=== PATIENT | male | born 1935 | race Caucasian/White ===

== ENCOUNTER → 2017-07-13 | Outpatient (CLI) | payer MEDICARE ==
--- NOTE | 2017-07-13 15:40 | XR ---
EXAMINATION TYPE: XR chest 2V DATE OF EXAM: 07/13/2017 COMPARISON: Chest CT March 23, 2017. Two-view chest x-ray July 05, 2016. HISTORY: Cough and congestion for weeks. Shortness of breath. TECHNIQUE: Frontal and lateral views of the chest are obtained. FINDINGS: Osseous structures remain demineralized. There is underlying scoliosis redemonstrated. The re is chronic blunting of right lateral costophrenic angle and elevated right hemidiaphragm. Underlyi ng emphysematous change with patchy left basilar scarring remains present. There is no new suspicious focal airspace opacity, pleural effusion, or pneumothorax seen bilaterally. Cardiac silhouette size remains within normal limits with atherosclerotic thoracic aorta. IMPRESSION: Chronic changes without suspicious new acute pulmonary process.
== END | disposition home or self-care (01) ==
LOC: RADXRMAIN 14:24
PROVIDERS: ATTEND Internal Medicine Critical Care Medicine
DX: R91.8 Other nonspecific abnormal finding of lung field (principal); R06.02 Shortness of breath; R05 Cough
CPT/HCPCS: 71046

== ENCOUNTER → 2018-08-31 | Outpatient (CLI) | payer MEDICARE ==
--- NOTE | 2018-08-31 09:20 | FL ---
EXAMINATION TYPE: FL barium swallow DATE OF EXAM: 08/31/2018 CLINICAL HISTORY: Dysphasia TECHNIQUE: A double contrast esophagram is performed utilizing air and barium. A total of 54 second s of fluoroscopic time was utilized during procedure. 15 images submitted COMPARISON: None FINDINGS: The esophagus shows a small hiatal hernia but no gastroesophageal reflux. There is occasion al tertiary contractions of esophagus. No obstruction. Mild fold thickening of the distal esophagus. IMPRESSION: 1. Small hiatal hernia with mild fold thickening and irregularity of the distal esophagus may be on t he basis of mild esophagitis. Would recommend direct visualization.
--- NOTE | 2018-08-31 11:15 | CT ---
EXAMINATION TYPE: CT sinus wo con DATE OF EXAM: 08/31/2018 COMPARISON: None HISTORY: acute sinusitis CT DLP: 622 mGycm CONTRAST: 0 mL of Isovue 300 The paranasal sinuses are examined in the axial plane at 2 mm thick sections. Reconstructed images i n the coronal plane were obtained. There is dental amalgam scatter artifact The maxillary sinuses are clear. The ethmoid air cells are clear. The sphenoid sinuses are clear. The frontal sinuses are clear. The septum is evaluated. There is septal deviation to the left. Bilateral colby bullosa are present . The ostiomeatal units are patent. Left medial maxillary wall is absent. No suspicious air-fluid levels are evident. IMPRESSIONS: 1. No suspicious acute sinusitis changes.
== END | disposition home or self-care (01) ==
LOC: RADCTMAIN 07:45
PROVIDERS: ATTEND Otolaryngology
DX: K44.9 Diaphragmatic hernia without obstruction or gangrene (principal); K22.8 Other specified diseases of esophagus; J32.9 Chronic sinusitis, unspecified
CPT/HCPCS: 70486; 74220

== ENCOUNTER 2018-09-27 08:53 | Day surgery (SDC) | payer MEDICARE ==
[2018-09-25 11:51] VITALS: BMI 23.7
[~2018-09-27 08:53] MED LIST: LACTATED RINGERS 1,000 ML IV SCH; LIDOCAINE 1% 20 ML VIAL (10MG/ML) FOR IV START INTRADERMA PRN
[2018-09-27 09:56] VITALS: TEMP 97.7
[2018-09-27] MEDS ORDERED: LIDOCAINE 1% INJ 10MG/ML (20 ML MDV) ONE (10:30)
[2018-09-27] MEDS ORDERED: GLYCOPYRROLATE 0.2 MG/ML 2 ML VIAL ONE (10:30)
[2018-09-27] MEDS ORDERED: PROPOFOL 10 MG/ML 20 ML VIAL IV ONE (10:30)
--- NOTE | 2018-09-27 10:45 | P.PCN ---
Date of Procedure: 09/27/18 Procedure(s) Performed: BRIEF HISTORY: Patient is a 83-year-old, pleasant, white male, scheduled for an upper endoscopy as a part of evaluation of intermittent heartburn and dysphagia. He recently had a barium esophagogram done that showed thickening of the distal esophagus and hence he scheduled for an upper endoscopy to evaluate further. PROCEDURE PERFORMED: Esophagogastroduodenoscopy with biopsy. PREOPERATIVE DIAGNOSIS: GERD/heartburn. IV sedation per anesthesia. PROCEDURE: After informed consent was obtained, the patient was brought into the endoscopy unit. IV sedation was administered by Anesthesia under continuous monitoring. Initially the Olympus GIF-140 video endoscope was inserted into the mouth. Esophagus intubated without any difficulty. It was gradually advanced into the stomach and duodenum and carefully examined. The bulb and the second part of the duodenum appeared normal. The scope at this time was withdrawn to the stomach, adequately insufflated with air, and upon careful examination, mucosa of the antrum had mild gastritis and biopsies were done from this area. The body, cardia and the fundus appeared normal. The scope was then withdrawn into the esophagus. Small hiatal hernia noted. The GE junction was located at 38 cm from the incisors. There was long segment of Patel's esophagus extending from 30 cm from the incisors with some mucosal erythema and thickened wasn't folds in the distal esophagus and multiple biopsies were done from this area. No nodularity identified. The rest of the esophagus appeared normal. There were no erosions or ulcerations seen and the patient tolerated the procedure well. IMPRESSION: 1. 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 Small hiatal hernia 3. Mild antral gastritis. RECOMMENDATIONS: The findings of this examination were discussed with the patient as well as a family. He was advised to follow with the biopsy results. and he'll be started on Prilosec 20 mg daily and was briefly educated about antireflux measures. He'll be seen in the office in a week to discuss the biopsy results.
[2018-09-27 11:15] VITALS: BP 110/66; PULSE 66; RESP 18
== END 2018-09-27 11:40 | disposition home or self-care (01) ==
LOC: ORWHC2ENDO 08:53
PROVIDERS: ATTEND Internal Medicine Gastroenterology
DX: K29.50 Unspecified chronic gastritis without bleeding (principal); K22.70 Barrett's esophagus without dysplasia; K44.9 Diaphragmatic hernia without obstruction or gangrene; I10 Essential (primary) hypertension; E78.5 Hyperlipidemia, unspecified; J44.9 Chronic obstructive pulmonary disease, unspecified; N40.0 Benign prostatic hyperplasia without lower urinary tract symptoms; Z79.899 Other long term (current) drug therapy; Z79.82 Long term (current) use of aspirin
CPT/HCPCS: 88305; 43239; J2001; J2704

== ENCOUNTER 2021-01-02 08:08 | Day surgery (SDC) | payer MEDICARE ==
[2020-12-31 09:28] VITALS: BMI 22.3
[~2021-01-02 08:08] MED LIST changes: +LIDOCAINE 1% (10MG/ML) FOR IV START INTRADERMA PRN; -LIDOCAINE 1% 20 ML VIAL (10MG/ML) FOR IV START INTRADERMA PRN
[2021-01-02] MEDS ORDERED: LACTATED RINGERS 1,000 ML IV ONE (08:33)
[2021-01-02 08:35] VITALS: TEMP 98.4
[2021-01-02] MEDS ORDERED: LIDOCAINE 1% INJ 10MG/ML (20 ML MDV) ONE (09:41)
[2021-01-02] MEDS ORDERED: PROPOFOL 10 MG/ML 20 ML VIAL IV ONE (09:41)
--- NOTE | 2021-01-02 09:53 | P.PCN ---
Date of Procedure: 01/02/21 Procedure(s) Performed: BRIEF HISTORY: Patient is a 85-year-old, pleasant, white male scheduled for an upper endoscopy as a part of surveillance of long-standing history of GERD and Patel's esophagus. His last EGD was 2 years ago. He is currently on Prilosec 20 mg daily. Complains of occasional sore throat but denies any dysphagia PROCEDURE PERFORMED: Esophagogastroduodenoscop with biopsy y. PREOPERATIVE DIAGNOSIS: GERD/Patel's esophagus. IV sedation per anesthesia. PROCEDURE: After informed consent was obtained, the patient was brought into the endoscopy unit. IV sedation was administered by Anesthesia under continuous monitoring. Initially the Olympus GIF-140 video endoscope was inserted into the mouth. Esophagus intubated without any difficulty. It was gradually advanced into the stomach and duodenum and carefully examined. The bulb and the second part of the duodenum appeared normal. The scope at this time was withdrawn to the stomach, adequately insufflated with air, and upon careful examination, mucosa of the antrum, body, cardia and the fundus appeared normal. The scope was then withdrawn into the esophagus. The GE junction was located at 42 cm from the incisors. Moderate size hiatal hernia noted. There was a long segment of Patel's esophagus extending from 35-42 cm from the incisors with no erosions or ulcerations noted. No nodularity seen. Multiple biopsies were done from the segment of Patel's esophagus. The rest of the esophagus appeared normal. Ther e were no erosions or ulcerations seen and the patient tolerated the procedure well. IMPRESSION: 1. Long Segment of Patel's esophagus extending from 35-42 cm from the incisors status post multiple biopsies to rule out dysplasia. 2. Size hiatal hernia.. RECOMMENDATIONS: The findings of this examination were discussed with the patient as well as his family. He was advised to follow with the biopsy results. He will continue with Prilosec 20 mg daily and follow antireflux measures. If the biopsy does not show any evidence of dysplasia he can have a repeat upper endoscopy in 2-3 years.
[2021-01-02 10:25] VITALS: BP 160/58; PULSE 76; RESP 18
== END 2021-01-02 10:36 | disposition home or self-care (01) ==
LOC: ORWHC2ENDO 08:08
PROVIDERS: ATTEND Internal Medicine Gastroenterology
DX: K21.00 Gastro-esophageal reflux disease with esophagitis, without bleeding (principal); K22.70 Barrett's esophagus without dysplasia; K44.9 Diaphragmatic hernia without obstruction or gangrene; I25.10 Atherosclerotic heart disease of native coronary artery without angina pectoris; E78.5 Hyperlipidemia, unspecified; I25.2 Old myocardial infarction; Z79.899 Other long term (current) drug therapy
CPT/HCPCS: 88305; 88312; 88342; 43239; J2001; J2704

== ENCOUNTER → 2021-08-18 | Outpatient (CLI) | payer MEDICARE ==
--- NOTE | 2021-08-19 05:30 | XR ---
EXAMINATION TYPE: XR lumbar spine 2 or 3V DATE OF EXAM: 08/18/2021 CLINICAL HISTORY: Low back pain for one year. TECHNIQUE: Frontal and lateral images of the lumbar spine are obtained. COMPARISON: None FINDINGS: There are 6 lumbar type vertebral bodies identified. There is slight levoconvex scoliosis centered in the lower lumbar spine. Loss of normal lumbar lordosis on lateral images. There is grade 1 retrolisthesis L3 on L4, L4 on L5, and L5 on L6. Severe disc space narrowing L5-L6 level with endpl ate sclerosis and moderate anterior spurring. Moderate to severe disc space narrowing L4-L5 level. Fa cet arthropathy in the lower lumbar spine. Incomplete evaluation of labeled L1 vertebra on lateral vi ew. Moderate overlying arterial vascular calcification is present. IMPRESSION: As above.
== END | disposition home or self-care (01) ==
LOC: RADXRMAIN 17:54
PROVIDERS: ATTEND Internal Medicine
DX: M47.816 Spondylosis without myelopathy or radiculopathy, lumbar region (principal); M41.86 Other forms of scoliosis, lumbar region; M43.16 Spondylolisthesis, lumbar region; M51.86 Other intervertebral disc disorders, lumbar region
CPT/HCPCS: 72100

== ENCOUNTER → 2021-09-07 | Outpatient (CLI) | payer MEDICARE ==
--- NOTE | 2021-09-07 15:22 | US ---
EXAMINATION TYPE: US carotid duplex BILAT DATE OF EXAM: 09/07/2021 COMPARISON: NONE CLINICAL HISTORY: R42 EPISODIC LIGHTHEADEDNESS. Lightheadnedness, hx hypertension. EXAM MEASUREMENTS: RIGHT: Peak Systolic Velocity (PSV) cm/sec ----- Right CCA: 83.1 ----- Right ICA: 97.4 *bulb measurement ----- Right ECA: 72.9 ICA/CCA ratio: 1.2 RIGHT: End Diastole cm/sec ----- Right CCA: 10.6 ----- Right ICA: 14.9 *bulb measurement ----- Right ECA: 0.0 LEFT: Peak Systolic Velocity (PSV) cm/sec ----- Left CCA: 120.5 ----- Left ICA: 82.0 *bulb measurement ----- Left ECA: 100.4 ICA/CCA ratio: 0.7 LEFT: End Diastole cm/sec ----- Left CCA: 23.6 ----- Left ICA: 13.8 *bulb measurement ----- Left ECA: 9.8 VERTEBRALS (direction of flow): Right Vertebral: Antegrade Left Vertebral: Antegrade Rhythm: Normal Plaque seen within bilateral CCA and bilateral bulb. Elevated velocities within left mid CCA. IMPRESSION: No evidence for hemodynamically significant stenosis. Criteria for Assigning % of Stenosis / Diameter reduction (Estimation based on the indirect measurements of the internal carotid artery velocities (ICA PSV). 1. Normal (no stenosis)=ICA PSV < 125 cm/s: ratio < 2.0: ICA EDV<40 cm/s. 2. Less than 50% stenosis=ICA PSV < 125 cm/s: ratio < 2.0: ICA EDV<40 cm/s. 3. 50 to 69% stenosis=ICA PSV of 125 to 230 cm/s: ration 2.0 ? 4.0: ICA EDV 40-100 cm/s. 4. Greater than 70% stenosis to near occlusion= ICA PSV > 230 cm/s: ratio > 4.0: ICA EDV > 100 cm/s. 5. Near occlusion= ICA PSV velocities may be low or undetectable: variable ratio and ICA EDV. 6. Total occlusion=unable to detect flow.
--- NOTE | 2021-09-07 15:30 | CT ---
EXAMINATION TYPE: CT brain mookie moreno DATE OF EXAM: 09/07/2021 COMPARISON: None available HISTORY: frequent falls, dizziness CT DLP: 330.6 mGycm Automated exposure control for dose reduction was used. TECHNIQUE: CT scan of the head and cervical spine are performed without contrast. FINDINGS: Brain: Small right cerebellar chronic infarct. Left occipital cortical and subcortical chronic infarct. Brai n volume loss changes, likely age-related. Scattered arterial atherosclerotic calcifications. No acut e intracranial hemorrhage or gross acute cortical infarct. No midline shift or herniation. Unremarkable basal cisterns, sella and CP angles. No gross space-occu pying lesion, vasogenic edema or mass effect. Unremarkable orbits. Clear visualized paranasal sinuses and mastoid air cells. No definite acute calvarial bone fracture identified. Cervical spine: Diffuse osteopenia. Anterolisthesis of C4 over C5, C6 over C7 and C7 over T1, likely degenerative. No definite vertebral body collapse or acute displaced fracture. Unremarkable atlantoaxial and atlantoo ccipital articulations. No facet dislocation or significant subluxation. Advanced degenerative changes of the cervical spine with multilevel opposing endplate osteophytosis, degenerated discs, disc calcifications and multilevel uncovertebral osteoarthropathy, most evident at C4-5 and C5-6 levels. Multilevel facet osteoarthropathy is also noted most evident at bilateral C4-5 facets. Moderate right C2-3, severe left C4-5 and severe right C5-6 neuroforaminal stenosis. Spinal canal shabnam nosis is seen at C5-6 level. Suspected previous left hemithyroidectomy. Scattered arterial atheroscle rotic calcifications. Bilateral apical pulmonary fibrotic changes. IMPRESSION: 1. No acute intracranial posttraumatic sequela or acute calvarial bone fracture. 2. Scattered chronic intracranial infarcts as described above. 3. No acute traumatic bony injury of the cervical spine. 4. Degenerative changes of the cervical spine and other incidental findings as detailed above. Further MRI assessment can be considered if clinically required.
== END | disposition home or self-care (01) ==
LOC: RADCTMAIN 14:19
PROVIDERS: ATTEND Internal Medicine
DX: M47.812 Spondylosis without myelopathy or radiculopathy, cervical region (principal); I63.9 Cerebral infarction, unspecified; R42 Dizziness and giddiness
CPT/HCPCS: 70450; 72125; 93880

== ENCOUNTER 2023-06-16 14:17 | Inpatient (IN) | payer MEDICARE ==
--- NOTE | 2023-06-16 14:45 | ED ---
General Adult HPI - General Source: patient Mode of arrival: ambulatory Limitations: no limitations <Jurgen Lawson - Last Filed: 06/16/23 14:42> <Darek Mckenzie - Last Filed: 06/16/23 21:58> - General Chief complaint: Shortness of Breath Stated complaint: SOB Time Seen by Provider: 06/16/23 14:31 - History of Present Illness Initial comments: Dictation was produced using [employer] dictation software. please excuse any grammatical, word or spelling errors. Chief Complaint: 88-year-old male with past medical history of COPD, hypertension and TX presents to the ER for weakness and shortness of breath History of Present Illness: Patient is an 88-year-old male with past medical history of COPD, TX hypertension presents to the ER for weeks of shortness of breath. Patient states that he has been feeling weak and short of breath for several weeks now. States that he has been short of breath for 3 weeks. His called EMS today because he was really weak. Patient has no pain complaints. States that he does have some black stools. Patient does not take any anticoagulation medications. States that he was feeling better once oxygen was given to him by prehospital providers. According to EMS patient's room air SpO2 is 91%. Patient has history of prostate cancer. The ROS documented in this emergency department record has been reviewed and confirmed by me. Those systems with pertinent positive or negative responses have been documented in the HPI. All other systems are other negative and/or noncontributory. (Jurgen Lawson) - Related Data Home Medications Medication Instructions Recorded Confirmed Albuterol Nebulized [Ventolin 2.5 mg INHALATION RT-Q6H PRN 09/25/18 06/16/23 Nebulized] Aspirin EC [Ecotrin Low Dose] 81 mg PO DAILY 09/25/18 06/16/23 Simvastatin [Zocor] 20 mg PO DAILY 09/25/18 06/16/23 Albuterol Inhaler [Ventolin Hfa 1 - 2 puff INHALATION RT-Q6H PRN 06/16/23 06/16/23 Inhaler] Cholecalciferol [Vitamin D3 (25 25 mcg PO DAILY 06/16/23 06/16/23 Mcg = 1000 Iu)] Ferrous Sulfate [Feosol] 325 mg PO Q48H 06/16/23 06/16/23 Fluticasone Furoate [Flonase 2 spray EA NOSTRIL DAILY PRN 06/16/23 06/16/23 Sensimist] Loperamide [Imodium] 2 - 4 mg PO QID PRN MDD 16 MG 06/16/23 06/16/23 Midodrine [ProAmatine] 5 mg PO TID 06/16/23 06/16/23 Omeprazole 20 mg PO DAILY 06/16/23 06/16/23 Vit C/E/Zn/Coppr/Lutein/Zeaxan 1 cap PO BID 06/16/23 06/16/23 [Preservision Areds 2 Softgel] Allergies Allergy/AdvReac Type Severity Reaction Status Date / Time No Known Allergies Allergy Verified 06/16/23 16:45 Review of Systems ROS Other: All systems not noted in ROS Statement are negative. <Jurgen Lawson - Last Filed: 06/16/23 14:42> ROS Other: All systems not noted in ROS Statement are negative. <Darek Mckenzie - Last Filed: 06/16/23 21:58> ROS Statement: Those systems with pertinent positive or pertinent negative responses have been documented in the HPI. Past Medical History Past Medical History: Cancer, COPD, Eye Disorder, Hypertension, Myocardial Infarction (TX), Prostate Disorder Additional Past Medical History / Comment(s): states has nodule in "throat", states prostate ca, hx of thyroid nodules, hx of asbestos exposure, hx of co llapsed lung, left eye macular deg. Last Myocardial Infarction Date:: 1978 History of Any Multi-Drug Resistant Organisms: None Reported Past Surgical History: Hernia Repair Additional Past Surgical History / Comment(s): chest tube, collapsed lung, berkley cataracts, partial thyroidectomy Past Anesthesia/Blood Transfusion Reactions: No Reported Reaction Past Psychological History: Depression Smoking Status: Never smoker Past Alcohol Use History: Rare Past Drug Use History: None Reported - Past Family History Mother Family Medical History: No Reported History <Jurgen Lawson - Last Filed: 06/16/23 14:42> General Exam Limitations: no limitations <Jurgen Lawson - Last Filed: 06/16/23 14:42> - General Exam Comments Initial Comments: PHYSICAL EXAM: General Impression: Alert and oriented x3, not in acute distress HEENT: Normocephalic atraumatic, extra-ocular movements intact, pupils equal and reactive to light bilaterally, mucous membranes moist. Cardiovascular: Heart regular rate and rhythm Chest: Able to complete full sentences, no retractions, no tachypnea Abdomen: abdomen soft, non-tender, non-distended, no organomegaly Musculoskeletal: Pulses present and equal in all extremities, no peripheral edema Motor: no focal deficits noted Neurological: CN II-XII grossly intact, no focal motor or sensory deficits noted Skin: Intact with no visualized rashes Psych: Normal affect and mood (Jurgen Lawson) Course Vital Signs 06/16/23 06/16/23 06/16/23 14:25 15:02 15:03 Temperature 98 F Pulse Rate 94 85 Respiratory 18 20 22 Rate Blood Pressure 168/96 167/96 O2 Sat by Pulse 99 98 Oximetry 06/16/23 06/16/23 06/16/23 16:33 16:42 17:31 Temperature 97.6 F Pulse Rate 91 96 89 Respiratory 22 Rate Blood Pressure 150/90 O2 Sat by Pulse 97 Oximetry 06/16/23 06/16/23 06/16/23 19:36 20:06 20:13 Temperature Pulse Rate 89 89 93 Respiratory 22 Rate Blood Pressure 151/82 O2 Sat by Pulse 99 Oximetry Medical Decision Making <Jurgen Lawson - Last Filed: 06/16/23 14:42> - Lab Data Result diagrams: 06/16/23 14:51 06/16/23 14:51 <Darek Mceknzie - Last Filed: 06/16/23 21:58> - Medical Decision Making Was pt. sent in by a medical professional or institution (, PA, INVESTMENT MANAGER, urgent care, hospital, or snf...) When possible be specific @ -No Did you speak to anyone other than the patient for history (EMS, parent, family, police, friend...)? What history was obtained from this source @ -EMS Did you review nursing and triage notes (agree or disagree)? Why? @ -I reviewed and agree with nursing and triage notes Were old charts reviewed (outside hosp., previous admission, EMS record, old EKG, old radiological studies, urgent care reports/EKG's, snf records)? Report findings @ -No old charts were reviewed Differential Diagnosis (chest pain, altered mental status, abdominal pain women, abdominal pain men, vaginal bleeding, musculoskeletal, weakness, fever, dyspnea, syncope, headache, dizziness, GI bleed, back pain, seizure, CVA, palpatations, mental health)? @ -Differential Weakness: Hypoglycemia, shock, sepsis, hyponatremia, anemia, infection, TX, ETOH, adverse medicine reaction, overdose, stroke, this is not meant to be an all-inclusive list. EKG interpreted by me (3pts min.). @ -Pending X-rays interpreted by me (1pt min.). @ -Pending CT interpreted by me (1pt min.). @ -None done U/S interpreted by me (1pt. min.). @ -None done What testing was considered but not performed or refused? (CT, X-rays, U/S, lab s)? Why? @ -None What meds were considered but not given or refused? Why? @ -None Did you discuss the management of the patient with other professionals (professionals i.e. , PA, INVESTMENT MANAGER, lab, RT, psych nurse, psychiatric social worker, hypnotherapist, teacher, employment security officer, vocational case manager)? Give summary @ -No Was smoking cessation discussed for >3mins.? @ -No Was critical care preformed (if so, how long)? @ -No Were there social determinants of health that impacted care today? How? (Homelessness, low income, unemployed, alcoholism, drug addiction, transportation, low edu. Level, literacy, decrease access to med. care, [facility], rehab)? @ -No Was there de-escalation of care discussed even if they declined (Discuss DNR or withdrawal of care, Hospice)? DNR status @ -No What co-morbidities impacted this encounter? (DM, HTN, Smoking, COPD, CAD, Cancer, CVA, ARF, Chemo, Hep., AIDS, mental health diagnosis, sleep apnea, morbid obesity)? @ -None Was patient admitted / discharged? Hospital course, mention meds given and route, prescriptions, significant lab abnormalities, going to OR and other pertinent info. @ -88-year-old male presents to the emergency department for subacute weakness and shortness of breath. Vital signs are stable. Patient 99% on 4 L nasal cannula. There is no history of patient ever being hypoxic. He was in the 90s on room air per prehospital providers. Medications were reviewed. Patient not on any beta-blockers. He is not tachycardic. Vital signs are otherwise stable. Patient in no distress. He did report to me that he had black stools however his rectal exam did not show any gross blood or melanotic residue. Patient care signed out to Dr. Mckenzie at 3:00 PM Undiagnosed new problem with uncertain prognosis? @ -No Drug Therapy requiring intensive monitoring for toxicity (Heparin, Nitro, Insulin, Cardizem)? @ -No Were any procedures done? @ -No Diagnosis/symptom? Acute, or Chronic, or Acute on Chronic? Uncomplicated (without systemic symptoms) or Complicated (systemic symptoms)? @ -Generalized weakness (Jurgen Lawson) Patient signed out to me pending results of workup. Is an 88-year-old male presenting with 3 weeks of shortness of breath and increased weakness. Has noticed increased lower extremity edema over this time as well. Endorses a nonproductive cough. Endorses worsening orthopnea and exertional dyspnea. Denies any chest pain. Also stated that he occasionally has dark stools as well but states this is somewhat chronic for him. He is not on any blood thinners. He was found to be hypoxic at the scene to 91%. Improved on nasal cannula oxygen. Presents for further evaluation at this time. Cardiopulmonary workup was started by the previous provider. Labs include results showing an anemia with a hemoglobin of 8.3. No recent hemoglobin for comparison at this time in the last 6 months. Coags within normal limits. D-dimer was mildly elevated to 1.68. Patient has an elevated troponin minimally to 0.067 likely secondary to a CHF exacerbation as the patient's BNP is 10,000. Occult blood completed by ER provider previously which was negative. Previous provider also stated there was no gross blood on exam either. Viral swabs negative. Chest x-ray as interpreted by myself shows bilateral pulmonary vascular congestion as well as bilateral mild pleural effusions. CT PE was obtained due to the elevated D-dimer. This was interpreted by me as showing small bilateral pleural effusions but no evidence of acute pulmonary embolism. I updated the patient at this time. I do suspect he is having a CHF exacerbation. Elevated troponin is likely secondary to this. He expressed understanding. He will be started on IV Lasix. Echo ordered. Cardiology consulted. No concern for acute GI bleed at this time. Patient was in agreement this plan. He will be admitted. Urinalysis is still pending at this time. Vital signs are within acceptable limits with patient on nasal cannula oxygen. I spoke with the admitting team, Dr. Hogan who accepted the patient. I did add on a urinalysis, which revealed many white blood cells, and patient will be started on Rocephin. Urine culture will be sent. Diagnosis/symptom? @ -New onset CHF, minimally elevated troponin, anemia Acute, or Chronic, or Acute on Chronic? @ -Acute Uncomplicated (without systemic symptoms) or Complicated (systemic symptoms)? @ -Complicated Side effects of treatment? @ -None Exacerbation, Progression, or Severe Exacerbation] @ -No Poses a threat to life or bodily function? @ -Yes Diagnosis/symptom? @ -UTI Acute, or Chronic, or Acute on Chronic? @ -Acute Uncomplicated (without systemic symptoms) or Complicated (systemic symptoms)? @ -Complicated Side effects of treatment? @ -None Exacerbation, Progression, or Severe Exacerbation] @ -No Poses a threat to life or bodily function? @ -Yes (Darek Mckenzie) - Lab Data Lab Results 06/16/23 06/16/23 06/16/23 Range/Units 14:51 14:51 14:51 WBC 7.4 (3.8-10.6) k/uL RBC 4.50 (4.30-5.90) m/uL Hgb 8.3 L (13.0-17.5) gm/dL Hct 31.7 L (39.0-53.0) % MCV 70.4 L (80.0-100.0) fL MCH 18.5 L (25.0-35.0) pg MCHC 26.3 L (31.0-37.0) g/dL RDW 19.7 H (11.5-15.5) % Plt Count 139 L (150-450) k/uL MPV 9.3 Neutrophils % (Manual) 87 % Lymphocytes % (Manual) 6 % Monocytes % (Manual) 4 % Eosinophils % (Manual) 2 % Basophils % (Manual) 1 % Neutrophils # (Manual) 6.44 (1.3-7.7) k/uL Lymphocytes # (Manual) 0.44 L (1.0-4.8) k/uL Monocytes # (Manual) 0.30 (0-1.0) k/uL Eosinophils # (Manual) 0.15 (0-0.7) k/uL Basophils # (Manual) 0.07 (0-0.2) k/uL Nucleated RBCs 0 (0-0) /100 WBC Manual Slide Review Performed Hypochromasia Marked Poikilocytosis Moderate Anisocytosis Slight Microcytosis Marked PT 11.6 (10.0-12.5) sec INR 1.1 (<1.2) APTT 22.3 (22.0-30.0) sec D-Dimer 1.68 H (<0.60) mg/L FEU Sodium (137-145) mmol/L Potassium (3.5-5.1) mmol/L Chloride (98-107) mmol/L Carbon Dioxide (22-30) mmol/L Anion Gap mmol/L BUN (9-20) mg/dL Creatinine (0.66-1.25) mg/dL Est GFR (CKD-EPI)AfAm (>60 ml/min/1.73 sqM) Est GFR (CKD-EPI)NonAf (>60 ml/min/1.73 sqM) Glucose (74-99) mg/dL Plasma Lactic Acid Donald (0.7-2.0) mmol/L Calcium (8.4-10.2) mg/dL Magnesium (1.6-2.3) mg/dL Total Bilirubin (0.2-1.3) mg/dL AST (17-59) U/L ALT (4-49) U/L Alkaline Phosphatase (38-126) U/L Troponin I (0.000-0.034) ng/mL NT-Pro-B Natriuret Pep pg/mL Total Protein (6.3-8.2) g/dL Albumin (3.5-5.0) g/dL Stool Occult Blood Negative (Negative) Influenza Type A (PCR) (Not Detectd) Influenza Type B (PCR) (Not Detectd) RSV (PCR) (Not Detectd) SARS-CoV-2 (PCR) (Not Detectd) Blood Type Blood Type Confirm Blood Type Recheck Bld Type Recheck Status Antibody Screen Spec Expiration Date 06/16/23 06/16/23 06/16/23 Range/Units 14:51 14:51 14:51 WBC (3.8-10.6) k/uL RBC (4.30-5.90) m/uL Hgb (13.0-17.5) gm/dL Hct (39.0-53.0) % MCV (80.0-100.0) fL MCH (25.0-35.0) pg MCHC (31.0-37.0) g/dL RDW (11.5-15.5) % Plt Count (150-450) k/uL MPV Neutrophils % (Manual) % Lymphocytes % (Manual) % Monocytes % (Manual) % Eosinophils % (Manual) % Basophils % (Manual) % Neutrophils # (Manual) (1.3-7.7) k/uL Lymphocytes # (Manual) (1.0-4.8) k/uL Monocytes # (Manual) (0-1.0) k/uL Eosinophils # (Manual) (0-0.7) k/uL Basophils # (Manual) (0-0.2) k/uL Nucleated RBCs (0-0) /100 WBC Manual Slide Review Hypochromasia Poikilocytosis Anisocytosis Microcytosis PT (10.0-12.5) sec INR (<1.2) APTT (22.0-30.0) sec D-Dimer (<0.60) mg/L FEU Sodium 147 H (137-145) mmol/L Potassium 4.3 (3.5-5.1) mmol/L Chloride 118 H (98-107) mmol/L Carbon Dioxide 20 L (22-30) mmol/L Anion Gap 9 mmol/L BUN 43 H (9-20) mg/dL Creatinine 0.95 (0.66-1.25) mg/dL Est GFR (CKD-EPI)AfAm 82 (>60 ml/min/1.73 sqM) Est GFR (CKD-EPI)NonAf 71 (>60 ml/min/1.73 sqM) Glucose 102 H (74-99) mg/dL Plasma Lactic Acid Donald 1.3 (0.7-2.0) mmol/L Calcium 8.8 (8.4-10.2) mg/dL Magnesium 2.3 (1.6-2.3) mg/dL Total Bilirubin 0.7 (0.2-1.3) mg/dL AST 39 (17-59) U/L ALT 32 (4-49) U/L Alkaline Phosphatase 67 (38-126) U/L Troponin I (0.000-0.034) ng/mL NT-Pro-B Natriuret Pep pg/mL Total Protein 6.5 (6.3-8.2) g/dL Albumin 3.3 L (3.5-5.0) g/dL Stool Occult Blood (Negative) Influenza Type A (PCR) Not Detected (Not Detectd) Influenza Type B (PCR) Not Detected (Not Detectd) RSV (PCR) Not Detected (Not Detectd) SARS-CoV-2 (PCR) Not Detected (Not Detectd) Blood Type Blood Type Confirm Blood Type Recheck Bld Type Recheck Status Antibody Screen Spec Expiration Date 06/16/23 06/16/23 06/16/23 Range/Units 14:51 14:51 14:51 WBC (3.8-10.6) k/uL RBC (4.30-5.90) m/uL Hgb (13.0-17.5) gm/dL Hct (39.0-53.0) % MCV (80.0-100.0) fL MCH (25.0-35.0) pg MCHC (31.0-37.0) g/dL RDW (11.5-15.5) % Plt Count (150-450) k/uL MPV Neutrophils % (Manual) % Lymphocytes % (Manual) % Monocytes % (Manual) % Eosinophils % (Manual) % Basophils % (Manual) % Neutrophils # (Manual) (1.3-7.7) k/uL Lymphocytes # (Manual) (1.0-4.8) k/uL Monocytes # (Manual) (0-1.0) k/uL Eosinophils # (Manual) (0-0.7) k/uL Basophils # (Manual) (0-0.2) k/uL Nucleated RBCs (0-0) /100 WBC Manual Slide Review Hypochromasia Poikilocytosis Anisocytosis Microcytosis PT (10.0-12.5) sec INR (<1.2) APTT (22.0-30.0) sec D-Dimer (<0.60) mg/L FEU Sodium (137-145) mmol/L Potassium (3.5-5.1) mmol/L Chloride (98-107) mmol/L Carbon Dioxide (22-30) mmol/L Anion Gap mmol/L BUN (9-20) mg/dL Creatinine (0.66-1.25) mg/dL Est GFR (CKD-EPI)AfAm (>60 ml/min/1.73 sqM) Est GFR (CKD-EPI)NonAf (>60 ml/min/1.73 sqM) Glucose (74-99) mg/dL Plasma Lactic Acid Donald (0.7-2.0) mmol/L Calcium (8.4-10.2) mg/dL Magnesium (1.6-2.3) mg/dL Total Bilirubin (0.2-1.3) mg/dL AST (17-59) U/L ALT (4-49) U/L Alkaline Phosphatase (38-126) U/L Troponin I 0.067 H* (0.000-0.034) ng/mL NT-Pro-B Natriuret Pep 42706 pg/mL Total Protein (6.3-8.2) g/dL Albumin (3.5-5.0) g/dL Stool Occult Blood (Negative) Influenza Type A (PCR) (Not Detectd) Influenza Type B (PCR) (Not Detectd) RSV (PCR) (Not Detectd) SARS-CoV-2 (PCR) (Not Detectd) Blood Type A Positive Blood Type Confirm Blood Type Recheck No Previous Record Bld Type Recheck Status CABO Indicated Antibody Screen NEGATIVE Spec Expiration Date 06/19/2023 - 235006/16/23 Range/Units 14:55 WBC (3.8-10.6) k/uL RBC (4.30-5.90) m/uL Hgb (13.0-17.5) gm/dL Hct (39.0-53.0) % MCV (80.0-100.0) fL MCH (25.0-35.0) pg MCHC (31.0-37.0) g/dL RDW (11.5-15.5) % Plt Count (150-450) k/uL MPV Neutrophils % (Manual) % Lymphocytes % (Manual) % Monocytes % (Manual) % Eosinophils % (Manual) % Basophils % (Manual) % Neutrophils # (Manual) (1.3-7.7) k/uL Lymphocytes # (Manual) (1.0-4.8) k/uL Monocytes # (Manual) (0-1.0) k/uL Eosinophils # (Manual) (0-0.7) k/uL Basophils # (Manual) (0-0.2) k/uL Nucleated RBCs (0-0) /100 WBC Manual Slide Review Hypochromasia Poikilocytosis Anisocytosis Microcytosis PT (10.0-12.5) sec INR (<1.2) APTT (22.0-30.0) sec D-Dimer (<0.60) mg/L FEU Sodium (137-145) mmol/L Potassium (3.5-5.1) mmol/L Chloride (98-107) mmol/L Carbon Dioxide (22-30) mmol/L Anion Gap mmol/L BUN (9-20) mg/dL Creatinine (0.66-1.25) mg/dL Est GFR (CKD-EPI)AfAm (>60 ml/min/1.73 sqM) Est GFR (CKD-EPI)NonAf (>60 ml/min/1.73 sqM) Glucose (74-99) mg/dL Plasma Lactic Acid Donald (0.7-2.0) mmol/L Calcium (8.4-10.2) mg/dL Magnesium (1.6-2.3) mg/dL Total Bilirubin (0.2-1.3) mg/dL AST (17-59) U/L ALT (4-49) U/L Alkaline Phosphatase (38-126) U/L Troponin I (0.000-0.034) ng/mL NT-Pro-B Natriuret Pep pg/mL Total Protein (6.3-8.2) g/dL Albumin (3.5-5.0) g/dL Stool Occult Blood (Negative) Influenza Type A (PCR) (Not Detectd) Influenza Type B (PCR) (Not Detectd) RSV (PCR) (Not Detectd) SARS-CoV-2 (PCR) (Not Detectd) Blood Type Blood Type Confirm A Positive Blood Type Recheck Bld Type Recheck Status Antibody Screen Spec Expiration Date Disposition <Jurgen Lawson - Last Filed: 06/16/23 14:42> Time of Disposition: 16:53 <Darek Mckenzie - Last Filed: 06/16/23 21:58> Clinical Impression: Weakness, CHF (congestive heart failure), Elevated troponin, UTI (urinary tract infection) Disposition: ADMITTED IP TO THIS HOSP Condition: Stable
--- NOTE | 2023-06-16 15:22 | XR ---
EXAMINATION TYPE: XR chest 2V DATE OF EXAM: 06/16/2023 COMPARISON: 07/13/2017 HISTORY: 88-year-old male dyspnea, weakness, shortness of breath TECHNIQUE: AP and lateral views FINDINGS: Heart mildly enlarged. Diffuse interstitial and vascular density. Small to moderate left and small ri ght pleural effusions with bibasilar opacities. Dextroconvex scoliotic curvature thoracic spine. IMPRESSION: Mild cardiomegaly and pulmonary vascular congestion. Small to moderate left and small right pleural e ffusions with adjacent atelectasis and/or consolidation.
[2023-06-16 15:24] LABS: Anisocytosis Slight; HCT 31.7 % (39.0-53.0); HGB 8.3 gm/dL (13.0-17.5); Hypochromasia Marked; MCH 18.5 pg (25.0-35.0); MCHC 26.3 g/dL (31.0-37.0); MCV 70.4 fL (80.0-100.0); Mean Platelet Volume 9.3; Microcytosis Marked; Platelet Count 139 k/uL (150-450); Poikilocytosis Moderate; RDW 19.7 % (11.5-15.5); WBC 7.4 k/uL (3.8-10.6)
[2023-06-16 15:26] LABS: INR 1.1 (<1.2); Partial Thromboplastin Time 22.3 sec (22.0-30.0); Potassium 4.3 mmol/L (3.5-5.1); Prothrombin Time 11.6 sec (10.0-12.5)
[2023-06-16 15:27] LABS: ALT 32 U/L (4-49); AST 39 U/L (17-59); African American GFR (CKD) 82 (>60 ml/min/1.73 sqM); Albumin 3.3 g/dL (3.5-5.0); Alkaline Phosphatase 67 U/L (38-126); Anion Gap 9 mmol/L; Blood Urea Nitrogen 43 mg/dL (9-20); Calcium 8.8 mg/dL (8.4-10.2); Carbon Dioxide 20 mmol/L (22-30); Chloride 118 mmol/L (98-107); Glucose 102 mg/dL (74-99); Magnesium 2.3 mg/dL (1.6-2.3); Non-African American GFR(CKD) 71 (>60 ml/min/1.73 sqM); Sodium 147 mmol/L (137-145); Total Bilirubin 0.7 mg/dL (0.2-1.3); Total Protein 6.5 g/dL (6.3-8.2)
[2023-06-16 16:08] LABS: Basophils # (M) 0.07 k/uL (0-0.2); Eosinophils # (M) 0.15 k/uL (0-0.7); Lymphocytes # (M) 0.44 k/uL (1.0-4.8); Neutrophils # (M) 6.44 k/uL (1.3-7.7); Neutrophils % (M) 87 %; Nucleated Red Blood Cells 0 /100 WBC (0-0); Total Cells Counted 100
[2023-06-16] MEDS ORDERED: IPRATROPIUM-ALBUTEROL 3 ML NEB INHALATION STA (16:22)
--- NOTE | 2023-06-16 16:23 | CT ---
CTA CHEST EXAMINATION TYPE: CT chest angio for PE DATE OF EXAM: 06/16/2023 INDICATION: eval for PE, sob, elevated d dimer CT DLP: 390.6 mGycm, Automated exposure control for dose reduction was used. CONTRAST: Patient injected with 100ml mL of Isovue 370. COMPARISON: 10/29/2015 TECHNIQUE: CT of the chest is performed on a spiral scan at 2 mm thick sections. Study is performed with intravenous contrast timed for evaluation for pulmonary embolism. This will limit additional po rtions of the evaluation. 3-D MIP images reconstructed by the technologist are reviewed on the compu ter in the coronal and sagittal planes. FINDINGS: No persistent filling defects are evident to suggest an acute pulmonary embolism. No mediastinal or hilar adenopathy enlarged by CT criteria is evident. The ascending aorta diameter at the level of the main pulmonary artery is 4.3 cm. The main pulmonary artery diameter at the bifurcation is 3.4 cm. Small right and minimal left pleural effusions are present. There is some thickening along the major fissure on the left which could be fluid. Some minimal fluid is at the right inferior major fissure. Limited CT sections were through the upper abdomen. Upper abdomen appears unremarkable. IMPRESSION: 1. Small right and minimal left pleural effusions. 2. No acute pulmonary embolism
[2023-06-16] MEDS ORDERED: FUROSEMIDE 10 MG/ML 4 ML VIAL IV STA (16:46)
[2023-06-16] MEDS ORDERED: ASPIRIN 81 MG PO STA (16:51)
[2023-06-16] MEDS ORDERED: ONDANSETRON 4 MG/2 ML VIAL IVP PRN (16:58)
[2023-06-16] MEDS ORDERED: NALOXONE 0.4 MG/ML 1 ML VIAL IV PRN (16:58)
[2023-06-16] MEDS ORDERED: IPRATROPIUM-ALBUTEROL 3 ML NEB INHALATION PRN (17:33)
[2023-06-16] MEDS ORDERED: FLUTICASONE 50MCG/SPRAY NASAL 16GM EA NOSTRIL PRN (17:36)
[2023-06-16] MEDS: methylPREDNISolone SOD SUCCI 40 MG/ML 1 ML VIAL IV SCH (17:41)
[2023-06-16] MEDS ORDERED: IPRATROPIUM-ALBUTEROL 3 ML NEB INHALATION SCH (17:45)
--- NOTE | 2023-06-16 17:45 | P.HPIM ---
History of Present Illness H&P Date: 06/16/23 Patient is a 88-year-old male with a past medical history of GERD, Patel's esophagus, asthma, hyperlipidemia, iron deficiency anemia who presents to the ED with 2 weeks of shortness of breath. Patient is a poor historian secondary to old age and also possibly underlying dementia. His was at bedside who is also a poor historian due to old age however was able to give me some history. She states that her has been short of breath for 2 weeks. She states that his lower extremity swelling has been worsening. She also reports that he has been having memory issues for quite some time. She states that he is not able to drive and she has to do the driving and shopping. She states that he lives alone and they have no children. Patient was able to tell me that his stools are brown. He also reports having a cough. He denies smoking. He denies being on oxygen at home. In the ED his hemoglobin was 8.3 and his baseline hemoglobin is 12 and his MCV is 70 D-dimer 1.68 and troponin 0.067 and BNP greater than 10,000 and stool occult negative and viral panel negative. CTA chest shows small right and minimal left pleural effusions. ROS: 10 ROS reviewed and are negative except as noted in HPI Physical exam General: [Lethargic, ill-appearing, appears chronically debilitated]. Eye: [No scleral icterus, normal conjunctiva]. HENT: [Normocephalic, clear tympanic membranes, normal hearing, dry oral mucosa, no scleral icterus, no sinus tenderness]. Neck: [Supple, non-tender, no carotid bruits, no JVD, no lymphadenopathy]. Lungs: [Bilateral wheezing, non-labored respiration]. Heart: [Normal rate, regular rhythm, no murmur, gallop +3 pitting edema bilateral lower extremities]. Abdomen: [Soft, non-tender, non-distended, normal bowel sounds, no masses]. Musculoskeletal: [Normal range of motion and strength, no tenderness or swelling] weakness in all 4 extremities. Neurologic: [Awake, alert, and oriented X2, CN II-XII intact]. Psychiatric: [Lethargic and somnolent]. Assessment and plan Acute respiratory distress Acute heart failure with unknown ejection fraction Acute asthma exacerbation Continue Lasix 40 mg every 12 hours Cardiac diet with 2 L fluid restriction Check echocardiogram Daily weight and strict I's and O's IV Solu-Medrol 40 mg every 8 hours, DuoNebs, doxycycline D-dimer elevated -> CTA shows no consolidation but does show bilateral pleural effusion and pulm embolism ruled out Cardiology consult Acute blood loss anemia Microcytic anemia Iron deficiency anemia History of Patel's esophagus Patient had an EGD done 4 years ago that showed a Patel's esophagus and he was supposed to get a repeat EGD done in 2 to 3 years which he never did Stool occult in the ED was negative On admission hemoglobin is 8.3 and his baseline is 12 from 1 year ago Will hold off on aspirin for now Hold off on surgical consult unless patient has overt signs of bleeding. Currently patient is not stable for any endoscopy procedure. Continue to trend CBC Will start IV PPI 40 mg twice daily Continue with ferrous sulfate Check iron panel Non-[place] troponin elevation Likely due to heart failure Trend troponin 2 more sets Cardiology consult Hyperlipidemia Continue with statin DVT prophylaxis: Hold anticoagulation in the setting of anemia Poor prognosis Discussed goals of care with at bedside. At this time patient is not sure what he wants. He will discuss with his and let me know his CODE STATUS tomorrow. For now I will keep him full code. Past Medical History Past Medical History: Cancer, COPD, Eye Disorder, Hypertension, Myocardial Infar ction ([place]), Prostate Disorder Additional Past Medical History / Comment(s): states has nodule in "throat", states prostate ca, hx of thyroid nodules, hx of asbestos exposure, hx of collapsed lung, left eye macular deg. Last Myocardial Infarction Date:: 1978 History of Any Multi-Drug Resistant Organisms: None Reported Past Surgical History: Hernia Repair Additional Past Surgical History / Comment(s): chest tube, collapsed lung, berkley cataracts, partial thyroidectomy Past Anesthesia/Blood Transfusion Reactions: No Reported Reaction Past Psychological History: Depression Smoking Status: Never smoker Past Alcohol Use History: Rare Past Drug Use History: None Reported - Past Family History Mother Family Medical History: No Reported History Medications and Allergies Home Medications Medication Instructions Recorded Confirmed Type Albuterol Nebulized [Ventolin 2.5 mg INHALATION RT-Q6H PRN 09/25/18 06/16/23 History Nebulized] Aspirin EC [Ecotrin Low Dose] 81 mg PO DAILY 09/25/18 06/16/23 History Simvastatin [Zocor] 20 mg PO DAILY 09/25/18 06/16/23 History Albuterol Inhaler [Ventolin Hfa 1 - 2 puff INHALATION RT-Q6H PRN 06/16/23 06/16/23 History Inhaler] Cholecalciferol [Vitamin D3 (25 25 mcg PO DAILY 06/16/23 06/16/23 History Mcg = 1000 Iu)] Ferrous Sulfate [Feosol] 325 mg PO Q48H 06/16/23 06/16/23 History Fluticasone Furoate [Flonase 2 spray EA NOSTRIL DAILY PRN 06/16/23 06/16/23 History Sensimist] Loperamide [Imodium] 2 - 4 mg PO QID PRN MDD 16 MG 06/16/23 06/16/23 History Midodrine [ProAmatine] 5 mg PO TID 06/16/23 06/16/23 History Omeprazole 20 mg PO DAILY 06/16/23 06/16/23 History Vit C/E/Zn/Coppr/Lutein/Zeaxan 1 cap PO BID 06/16/23 06/16/23 History [Preservision Areds 2 Softgel] Allergies Allergy/AdvReac Type Severity Reaction Status Date / Time No Known Allergies Allergy Verified 06/16/23 16:45 Physical Exam Osteopathic Statement: *. No significant issues noted on an osteopathic structural exam other than those noted in the History and Physical/Consult. Vitals: Vital Signs Temp Pulse Resp BP Pulse Ox 06/16/23 17:31 97.6 F 89 22 150/90 97 06/16/23 16:42 96 06/16/23 16:33 91 06/16/23 15:03 22 06/16/23 15:02 85 20 167/96 98 06/16/23 14:25 98 F 94 18 168/96 99 Intake and Output 06/16/23 06/16/23 06/16/23 06:59 14:59 22:59 Other: Weight 68.039 kg Results CBC & Chem 7: 06/16/23 14:51 06/16/23 14:51 Labs: Abnormal Lab Results - Last 24 Hours (Table) 06/16/23 06/16/23 06/16/23 Range/Units 14:51 14:51 14:51 Hgb 8.3 L (13.0-17.5) gm/dL Hct 31.7 L (39.0-53.0) % MCV 70.4 L (80.0-100.0) fL MCH 18.5 L (25.0-35.0) pg MCHC 26.3 L (31.0-37.0) g/dL RDW 19.7 H (11.5-15.5) % Plt Count 139 L (150-450) k/uL Lymphocytes # (Manual) 0.44 L (1.0-4.8) k/uL D-Dimer 1.68 H (<0.60) mg/L FEU Sodium 147 H (137-145) mmol/L Chloride 118 H (98-107) mmol/L Carbon Dioxide 20 L (22-30) mmol/L BUN 43 H (9-20) mg/dL Glucose 102 H (74-99) mg/dL Troponin I (0.000-0.034) ng/mL Albumin 3.3 L (3.5-5.0) g/dL 06/16/23 Range/Units 14:51 Hgb (13.0-17.5) gm/dL Hct (39.0-53.0) % MCV (80.0-100.0) fL MCH (25.0-35.0) pg MCHC (31.0-37.0) g/dL RDW (11.5-15.5) % Plt Count (150-450) k/uL Lymphocytes # (Manual) (1.0-4.8) k/uL D-Dimer (<0.60) mg/L FEU Sodium (137-145) mmol/L Chloride (98-107) mmol/L Carbon Dioxide (22-30) mmol/L BUN (9-20) mg/dL Glucose (74-99) mg/dL Troponin I 0.067 H* (0.000-0.034) ng/mL Albumin (3.5-5.0) g/dL
[2023-06-16 18:33] LABS: Appearance,Urine Cloudy (Clear); Bacteria,Urine Occasional /hpf; Bilirubin,Urine Negative (Negative); Blood,Urine Negative (Negative); Calcium Oxalate Crystals,Urine Occasional /hpf; Color,Urine Light Yellow; Glucose,Urine (UA) Negative (Negative); Ketones,Urine Negative (Negative); Leukocyte Esterase,Urine Large (Negative); Mucus,Urine Rare /hpf; Nitrite,Urine Negative (Negative); Protein,Urine 1+ (Negative); RBC,Urine 4 /hpf (0-5); Specific Gravity,Urine 1.038 (1.001-1.035); Urobilinogen,Urine <2.0 mg/dL (<2.0); WBC,Urine >182 /hpf (0-5)
[2023-06-16] MEDS: IPRATROPIUM-ALBUTEROL 3 ML NEB INHALATION SCH (20:06)
[2023-06-16] MEDS: PANTOPRAZOLE 40 MG/10 ML VIAL IVP SCH (21:07)
[2023-06-16] MEDS: MIDODRINE 5 MG TAB PO SCH (21:08)
[2023-06-16] MEDS: DOXYCYCLINE 100 MG CAP PO SCH (21:09)
[2023-06-16] MEDS: FUROSEMIDE 10 MG/ML 4 ML VIAL IV SCH (21:09)
[2023-06-17] MEDS: methylPREDNISolone SOD SUCCI 40 MG/ML 1 ML VIAL IV SCH ×4 (00:01→22:43)
[2023-06-17] MEDS: CHOLECALCIFEROL 25 MCG (1000 IU) TABLET PO SCH (08:34)
[2023-06-17] MEDS: PANTOPRAZOLE 40 MG/10 ML VIAL IVP SCH ×2 (08:34→21:01)
[2023-06-17] MEDS: MIDODRINE 5 MG TAB PO SCH ×3 (08:44→21:01)
[2023-06-17] MEDS: FERROUS SULFATE 325 MG TAB PO SCH (08:46)
[2023-06-17] MEDS: FUROSEMIDE 10 MG/ML 4 ML VIAL IV SCH ×2 (08:46→21:01)
[2023-06-17] MEDS ORDERED: ATORVASTATIN 10 MG TAB PO SCH (09:00)
--- NOTE | 2023-06-17 09:05 | P.CRDCN ---
History of Present Illness History of present illness: HISTORY OF PRESENT ILLNESS: This is a 88-year-old male with a past medical history significant for cardiomyopathy with an ejection fraction of 45%, moderate aortic regurgitation, hyperlipidemia, orthostatic hypotension, and COPD. Patient follows in the office with Dr. Amaya. We have been asked to see the patient in consultation for congestive heart failure. Patient examined at the bedside. Patient is somewhat lethargic at the time of examination. Patient presented to the hospital with a chief complaint of shortness of breath. He states he has been feeling short of breath over the past few months but has gotten worse over the past few days. He denies any chest pain or pressure. He denies any history of congestive heart failure. He does report lower extremity edema which he states he usually does not have. The patient was found to be in acute CHF and was started on IV Lasix. He does report his breathing has improved since coming to the hospital. He is currently on supplemental oxygen with oxygen saturations greater than 92%. Blood pressure 141/65. DIAGNOSTICS: - EKG reveals sinus mechanism with no signs of acute ischemia. Right bundle branch block - Chest xray mild cardiomegaly and pulmonary vascular congestion. Small to moderate left and small right pleural effusions with adjacent atelectasis and/or consolidation - Laboratory data: WBC 7.4. Hemoglobin 8.3. Platelet count 139. D-dimer 1.68. Sodium 147. BUN 43. Creatinine 0.95. Troponin 0.067. 0.063. 0.074. proBNP 10,700. - Current home cardiac medications include midodrine 5 mg 3 times a day, simvastatin 20 mg daily, and aspirin 81 mg daily - Most recent echocardiogram obtained in October 2022 revealed ejection fraction 45 to 50%, moderate concentric LVH, moderate aortic regurgitation, mild mitral vegetation, and trace to mild tricuspid regurgitation -Patient underwent Lexiscan stress test in February 2022 revealing small fixed inferior defect consistent with diaphragmatic attenuation artifact. No reversible ischemia noted. EF estimated at 60% REVIEW OF SYSTEMS: At the time of my exam: CONSTITUTIONAL: Denies fever or chills. HEENT: Denies blurred vision, vision changes, or eye pain. Denies hemoptysis CARDIOVASCULAR: Denies chest pain. Denies orthopnea. Denies PND. Denies p alpitations RESPIRATORY: Reports shortness of breath. GASTROINTESTINAL: Denies abdominal pain. Denies nausea or vomiting. HEMATOLOGIC: Denies bleeding disorders. GENITOURINARY: Denies any blood in urine. SKIN: Denies pruitis. Denies rash. PHYSICAL EXAM: VITAL SIGNS: Reviewed. GENERAL: Well-developed in no acute distress. HEENT: Head is normocephalic. Pupils are equal, round. Sclerae anicteric. Mucous membranes of the mouth are moist. Neck supple. No JVD or thyromegaly LUNGS: Respirations even and unlabored. Lungs diminished with bibasilar rales HEART: Regular rate and rhythm. S1 and S2 heard. Diastolic murmur noted ABDOMEN: Soft. Nondistended. Nontender. EXTREMITIES: Normal range of motion. No clubbing or cyanosis. Peripheral pulses intact. 2-3+ bilateral lower extremity edema NEUROLOGIC: Awake and alert. Oriented x 3. ASSESSMENT: Shortness of breath Acute heart failure with mildly reduced EF, most recently 45 to 50% Elevated troponins, flat, likely secondary to above, no evidence of acute coronary syndrome Acute anemia, hemoglobin 8.3, previously 12.1 Valvular heart disease including moderate aortic regurgitation Hyperlipidemia History of orthostatic hypotension, maintained on midodrine outpatient History of COPD PLAN: Obtain 2D echo to assess cardiac structure and function Continue IV Lasix 40 mg IV every 12 hours Daily weights, accurate intake and output, and monitoring of kidney function Add Farxiga 10 mg daily Resume aspirin 81 mg daily Defer evaluation of anemia to internal medicine Patient does have a history of orthostatic hypotension and is maintained on midodrine outpatient. He has previously been unable to tolerate cardiomyopathy regimen. However patient's blood pressures have been stable since admission. We will continue to monitor and if his pressures remain stable, will add STEVEN/ARB and small dose of beta roslyn Further recommendations pending patient course Nurse practitioner note has been reviewed by physician. Signing provider agrees with the documented findings, assessment, and plan of care documented by CIVIL ENGINEER as a scribe. Past Medical History Past Medical History: Cancer, COPD, Eye Disorder, Hypertension, Myocardial Infarction ([place]), Prostate Disorder Additional Past Medical History / Comment(s): states has nodule in "throat", states prostate ca, hx of thyroid nodules, hx of asbestos exposure, hx of collapsed lung, left eye macular deg. Last Myocardial Infarction Date:: 1978 History of Any Multi-Drug Resistant Organisms: None Reported Past Surgical History: Hernia Repair Additional Past Surgical History / Comment(s): chest tube, collapsed lung, berkley cataracts, partial thyroidectomy Past Anesthesia/Blood Transfusion Reactions: No Reported Reaction Past Psychological History: Depression Smoking Status: Never smoker Past Alcohol Use History: Rare Past Drug Use History: None Reported - Past Family History Mother Family Medical History: No Reported History Medications and Allergies Home Medications Medication Instructions Recorded Confirmed Type Albuterol Nebulized [Ventolin 2.5 mg INHALATION RT-Q6H PRN 09/25/18 06/16/23 History Nebulized] Aspirin EC [Ecotrin Low Dose] 81 mg PO DAILY 09/25/18 06/16/23 History Simvastatin [Zocor] 20 mg PO DAILY 09/25/18 06/16/23 History Albuterol Inhaler [Ventolin Hfa 1 - 2 puff INHALATION RT-Q6H PRN 06/16/23 06/16/23 History Inhaler] Cholecalciferol [Vitamin D3 (25 25 mcg PO DAILY 06/16/23 06/16/23 History Mcg = 1000 Iu)] Ferrous Sulfate [Feosol] 325 mg PO Q48H 06/16/23 06/16/23 History Fluticasone Furoate [Flonase 2 spray EA NOSTRIL DAILY PRN 06/16/23 06/16/23 History Sensimist] Loperamide [Imodium] 2 - 4 mg PO QID PRN MDD 16 MG 06/16/23 06/16/23 History Midodrine [ProAmatine] 5 mg PO TID 06/16/23 06/16/23 History Omeprazole 20 mg PO DAILY 06/16/23 06/16/23 History Vit C/E/Zn/Coppr/Lutein/Zeaxan 1 cap PO BID 06/16/23 06/16/23 History [Preservision Areds 2 Softgel] Allergies Allergy/AdvReac Type Severity Reaction Status Date / Time No Known Allergies Allergy Verified 06/16/23 16:45 Physical Exam Vitals: Vital Signs Temp Pulse Pulse Resp BP BP Pulse Ox 06/17/23 08:32 97.8 F 87 19 141/65 97 06/17/23 04:00 98.4 F 86 22 136/66 96 06/17/23 00:59 97.8 F 90 24 165/87 95 06/17/23 00:00 88 12 172/93 100 06/16/23 23:00 90 18 143/82 100 06/16/23 22:00 91 21 150/84 100 06/16/23 21:00 86 21 141/79 98 06/16/23 20:13 93 06/16/23 20:06 89 06/16/23 20:00 86 19 151/82 100 06/16/23 19:36 89 22 151/82 99 06/16/23 17:31 97.6 F 89 22 150/90 97 06/16/23 16:42 96 06/16/23 16:33 91 06/16/23 15:03 22 06/16/23 15:02 85 20 167/96 98 06/16/23 14:25 98 F 94 18 168/96 99 Intake and Output 06/16/23 06/17/23 06/17/23 22:59 06:59 14:59 Intake Total 348 Output Total 2400 Balance -2051 Intake: IV 50 cefTRIAXone 1 gm In 50 Sodium Chloride 0.9% 50 ml @ 100 mls/hr IVPB Q24HR [facility] Rx#:[id number] Oral 180 Other 118 Output: Urine 2400 Other: Voiding Method Diaper External Catheter Weight 77 kg Results 06/16/23 14:51 06/16/23 14:51 Cardiac Enzymes 06/16/23 06/16/23 06/16/23 Range/Units 14:51 14:51 17:42 AST 39 (17-59) U/L Troponin I 0.067 H* 0.063 H* (0.000-0.034) ng/mL 06/16/23 Range/Units 20:21 AST (17-59) U/L Troponin I 0.074 H* (0.000-0.034) ng/mL Coagulation 06/16/23 Range/Units 14:51 PT 11.6 (10.0-12.5) sec APTT 22.3 (22.0-30.0) sec CBC 06/16/23 Range/Units 14:51 WBC 7.4 (3.8-10.6) k/uL RBC 4.50 (4.30-5.90) m/uL Hgb 8.3 L (13.0-17.5) gm/dL Hct 31.7 L (39.0-53.0) % Plt Count 139 L (150-450) k/uL Comprehensive Metabolic Panel 06/16/23 Range/Units 14:51 Sodium 147 H (137-145) mmol/L Potassium 4.3 (3.5-5.1) mmol/L Chloride 118 H (98-107) mmol/L Carbon Dioxide 20 L (22-30) mmol/L BUN 43 H (9-20) mg/dL Creatinine 0.95 (0.66-1.25) mg/dL Glucose 102 H (74-99) mg/dL Calcium 8.8 (8.4-10.2) mg/dL AST 39 (17-59) U/L ALT 32 (4-49) U/L Alkaline Phosphatase 67 (38-126) U/L Total Protein 6.5 (6.3-8.2) g/dL Albumin 3.3 L (3.5-5.0) g/dL Current Medications Generic Name Dose Route Start Last Admin Trade Name Freq PRN Reason Stop Dose Admin Albuterol/Ipratropium 3 ml 06/16/23 17:33 Ipratropium-Albuterol 3 Ml Neb INHALATION RT-QID PRN Shortness Of Breath Or Wheezing Albuterol/Ipratropium 3 ml 06/16/23 20:00 06/16/23 20:06 Ipratropium-Albuterol 3 Ml Neb INHALATION 3 ml RT-QID CORRIE Administration Atorvastatin Calcium 10 mg 06/17/23 09:00 06/17/23 08:34 Atorvastatin 10 Mg Tab PO 10 mg DAILY CORRIE Administration Cholecalciferol 25 mcg 06/17/23 09:00 06/17/23 08:34 Cholecalciferol 25 Mcg (1000 Iu) Tablet PO 25 mcg DAILY CORRIE Administration Doxycycline Monohydrate 100 mg 06/16/23 21:00 06/16/23 21:09 Doxycycline 100 Mg Cap PO 100 mg BID CORRIE Administration Protocol Ferrous Sulfate 325 mg 06/17/23 09:00 06/17/23 08:46 Ferrous Sulfate 325 Mg Tab PO 325 mg Q48H CORRIE Administration Fluticasone Propionate 2 spray 06/16/23 17:36 Fluticasone 50mcg/[place] Nasal 16gm EA NOSTRIL DAILY PRN Allergy Symptoms Furosemide 40 mg 06/16/23 21:00 06/17/23 08:46 Furosemide 10 Mg/Ml 4 Ml Vial IV 40 mg Q12HR CORRIE Administration Ceftriaxone Sodium 1 gm/ 50 mls @ 100 mls/hr 06/16/23 22:00 06/17/23 08:34 Sodium Chloride IVPB 100 mls/hr Q24HR CORRIE Administration Protocol Methylprednisolone Sodium Succinate 40 mg 06/16/23 17:45 06/17/23 08:34 Methylprednisolone Sod Succi 40 Mg/Ml 1 Ml Vial IV 40 mg Q8HR CORRIE Administration Midodrine 5 mg 06/16/23 22:00 06/17/23 08:44 Midodrine 5 Mg Tab PO Not Given TID CORRIE Naloxone HCl 0.2 mg 06/16/23 16:58 Naloxone 0.4 Mg/Ml 1 Ml Vial IV Q2M PRN Opioid Reversal Ondansetron HCl 4 mg 06/16/23 16:58 Ondansetron 4 Mg/2 Ml Vial IVP Q8HR PRN Nausea And Vomiting Pantoprazole Sodium 40 mg 06/16/23 21:00 06/17/23 08:34 Pantoprazole 40 Mg/10 Ml Vial IVP 40 mg BID CORRIE Administration Intake and Output 06/16/23 06/17/23 06/17/23 22:59 06:59 14:59 Intake Total 348 Output Total 2400 Intake: IV 50 cefTRIAXone 1 gm In 50 Sodium Chloride 0.9% 50 ml @ 100 mls/hr IVPB Q24HR [facility] Rx#:[id number] Oral 180 Other 118 Output: Urine 2400 Other: Voiding Method Diaper External Catheter Weight 77 kg 06/16/23 14:51 06/16/23 14:51
[2023-06-17] MEDS: IPRATROPIUM-ALBUTEROL 3 ML NEB INHALATION SCH ×4 (09:16→22:09)
[2023-06-17] MEDS: ASPIRIN 81 MG PO SCH (09:26)
[2023-06-17] MEDS: DAPAGLIFLOZIN PROPANEDIOL 10 MG TABLET PO SCH (09:26)
[2023-06-17 09:44] LABS: Anisocytosis Slight; HCT 31.1 % (39.0-53.0); HGB 8.6 gm/dL (13.0-17.5); Hypochromasia Marked; MCHC 27.8 g/dL (31.0-37.0); MCV 71.8 fL (80.0-100.0); Mean Platelet Volume 11.7; Microcytosis Marked; Platelet Count 137 k/uL (150-450); Poikilocytosis Slight; RBC 4.32 m/uL (4.30-5.90); RDW 19.4 % (11.5-15.5); WBC 4.8 k/uL (3.8-10.6)
[2023-06-17] MEDS ORDERED: ZINC OXIDE PASTE (Z-GUARD) 1 APPLIC TOPICAL PRN (10:05)
[2023-06-17] MEDS: DOXYCYCLINE 100 MG CAP PO SCH ×2 (10:10→22:43)
[2023-06-17 10:11] LABS: African American GFR (CKD) 62 (>60 ml/min/1.73 sqM); Anion Gap 5 mmol/L; Blood Urea Nitrogen 42 mg/dL (9-20); Calcium 8.5 mg/dL (8.4-10.2); Carbon Dioxide 26 mmol/L (22-30); Chloride 115 mmol/L (98-107); Glucose 129 mg/dL (74-99); Magnesium 2.2 mg/dL (1.6-2.3); Non-African American GFR(CKD) 54 (>60 ml/min/1.73 sqM); Potassium 4.6 mmol/L (3.5-5.1); Sodium 146 mmol/L (137-145)
--- NOTE | 2023-06-17 10:48 | P.PN ---
Subjective Progress Note Date: 06/17/23 Hospital course Patient is a 88-year-old male with a past medical history of GERD, Patel's esophagus, asthma, hyperlipidemia, iron deficiency anemia who presents to the ED with 2 weeks of shortness of breath. Patient is a poor historian secondary to old age and also possibly underlying dementia. His was at bedside who is also a poor historian due to old age however was able to give me some history. She states that her has been short of breath for 2 weeks. She states that his lower extremity swelling has been worsening. She also reports that he has been having memory issues for quite some time. She states that he is not able to drive and she has to do the driving and shopping. She states that he lives alone and they have no children. Patient was able to tell me that his stools are brown. He also reports having a cough. He denies smoking. He de nies being on oxygen at home. In the ED his hemoglobin was 8.3 and his baseline hemoglobin is 12 and his MCV is 70 D-dimer 1.68 and troponin 0.067 and BNP greater than 10,000 and stool occult negative and viral panel negative. CTA chest shows small right and minimal left pleural effusions. Patient started on IV Lasix. Patient also started on asthma pathway. Patient seen today. He is a poor historian. He appears ill. He states he feels the same as yesterday. 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 Wean O2 as tolerated. Patient is not on home O2 Monitor renal function while on diuretics. Creatinine today is 1.13 which is slightly worse. Will start Mucinex and Tessalon Perles for cough Acute blood loss anemia Microcytic anemia Iron deficiency anemia History of Patel's esophagus Patient had an EGD done 4 years ago that showed a Patel's esophagus and he was supposed to get a repeat EGD done in 2 to 3 years which he never did Stool occult in the ED was negative Baseline hemoglobin 12 from 1 year ago Today hemoglobin is 8.6 which is slightly better compared to yesterday. Will hold off on aspirin for now Hold off on surgical consult unless patient has overt signs of bleeding. Currently patient is not stable for any endoscopy procedure. Continue to trend CBC Will start IV PPI 40 mg twice daily Continue with ferrous sulfate Check iron panel Non-[place] troponin elevation Likely due to heart failure Troponins are flat and patient has no chest pain so unlikely ACS Cardiology following Hyperlipidemia Continue with statin DVT prophylaxis: Hold anticoagulation in the setting of anemia Poor prognosis Discussed goals of care with at bedside. At this time patient and are undecided about CODE STATUS. For now we will keep patient full code. Objective - Vital Signs Vital signs: Vital Signs Temp 97.8 F 06/17/23 08:32 Pulse 89 06/17/23 09:27 Resp 19 06/17/23 08:32 BP 141/65 06/17/23 08:32 Pulse Ox 97 06/17/23 09:16 FiO2 Intake & Output 06/16/23 06/17/23 06/17/23 18:59 06:59 18:59 Intake Total 348 Output Total 2400 Balance -2051 Weight 68.039 kg 77 kg Intake: IV 50 cefTRIAXone 1 gm In 50 Sodium Chloride 0.9% 50 ml @ 100 mls/hr IVPB Q24HR [facility] Rx#:[id number] Oral 180 Other 118 Output: Urine 2400 Other: Voiding Method Diaper Diaper External Catheter External Catheter - Labs CBC & Chem 7: 06/17/23 08:52 06/17/23 08:52 Labs: Abnormal Lab Results - Last 24 Hours (Table) 06/16/23 06/16/23 06/16/23 Range/Units 14:51 14:51 14:51 Hgb 8.3 L (13.0-17.5) gm/dL Hct 31.7 L (39.0-53.0) % MCV 70.4 L (80.0-100.0) fL MCH 18.5 L (25.0-35.0) pg MCHC 26.3 L (31.0-37.0) g/dL RDW 19.7 H (11.5-15.5) % Plt Count 139 L (150-450) k/uL Lymphocytes # (Manual) 0.44 L (1.0-4.8) k/uL D-Dimer 1.68 H (<0.60) mg/L FEU Sodium 147 H (137-145) mmol/L Chloride 118 H (98-107) mmol/L Carbon Dioxide 20 L (22-30) mmol/L BUN 43 H (9-20) mg/dL Glucose 102 H (74-99) mg/dL Troponin I (0.000-0.034) ng/mL Albumin 3.3 L (3.5-5.0) g/dL Ur Specific [place] (1.001-1.035) Urine Protein (Negative) Ur Leukocyte Esterase (Negative) Urine WBC (0-5) /hpf Calcium Oxalate Crystal (None) /hpf Urine Bacteria (None) /hpf Urine Mucus (None) /hpf 06/16/23 06/16/23 06/16/23 Range/Units 14:51 17:42 17:50 Hgb (13.0-17.5) gm/dL Hct (39.0-53.0) % MCV (80.0-100.0) fL MCH (25.0-35.0) pg MCHC (31.0-37.0) g/dL RDW (11.5-15.5) % Plt Count (150-450) k/uL Lymphocytes # (Manual) (1.0-4.8) k/uL D-Dimer (<0.60) mg/L FEU Sodium (137-145) mmol/L Chloride (98-107) mmol/L Carbon Dioxide (22-30) mmol/L BUN (9-20) mg/dL Glucose (74-99) mg/dL Troponin I 0.067 H* 0.063 H* (0.000-0.034) ng/mL Albumin (3.5-5.0) g/dL Ur Specific [place] 1.038 H (1.001-1.035) Urine Protein 1+ H (Negative) Ur Leukocyte Esterase Large H (Negative) Urine WBC >182 H (0-5) /hpf Calcium Oxalate Crystal Occasional H (None) /hpf Urine Bacteria Occasional H (None) /hpf Urine Mucus Rare H (None) /hpf 06/16/23 06/17/23 06/17/23 Range/Units 20:21 08:52 08:52 Hgb 8.6 L (13.0-17.5) gm/dL Hct 31.1 L (39.0-53.0) % MCV 71.8 L (80.0-100.0) fL MCH 20.0 L (25.0-35.0) pg MCHC 27.8 L (31.0-37.0) g/dL RDW 19.4 H (11.5-15.5) % Plt Count 137 L (150-450) k/uL Lymphocytes # (Manual) (1.0-4.8) k/uL D-Dimer (<0.60) mg/L FEU Sodium 146 H (137-145) mmol/L Chloride 115 H (98-107) mmol/L Carbon Dioxide (22-30) mmol/L BUN 42 H (9-20) mg/dL Glucose 129 H (74-99) mg/dL Troponin I 0.074 H* (0.000-0.034) ng/mL Albumin (3.5-5.0) g/dL Ur Specific [place] (1.001-1.035) Urine Protein (Negative) Ur Leukocyte Esterase (Negative) Urine WBC (0-5) /hpf Calcium Oxalate Crystal (None) /hpf Urine Bacteria (None) /hpf Urine Mucus (None) /hpf
[2023-06-17 10:53] LABS: Lymphocytes # (M) 0.48 k/uL (1.0-4.8); Monocytes # (M) 0.14 k/uL (0-1.0); Neutrophils # (M) 4.22 k/uL (1.3-7.7); Neutrophils % (M) 88 %; Nucleated Red Blood Cells 0 /100 WBC (0-0); Total Cells Counted 200
[2023-06-17 10:55] LABS: Ovalocytes Present; Target Cells Present
[2023-06-17 11:50] LABS: Glucose,Whole Blood 187 mg/dL (70-110)
[2023-06-17 16:20] LABS: % Iron Saturation 2.86 (15.00-50.00); Iron 12 UG/DL (65-175); Total Iron Binding Capacity 419 UG/DL (228-460)
[2023-06-17 17:04] LABS: Glucose,Whole Blood 223 mg/dL (70-110)
[2023-06-17] MEDS ORDERED: DEXTROSE 50% SYRINGE 50 ML IVP PRN ×2 (17:20)
[2023-06-17] MEDS: INSULIN ASPART (NovoLOG) 100 UNIT/ML VIAL SQ SCH ×2 (17:46→21:01)
--- NOTE | 2023-06-17 18:50 | CA ---
Transthoracic Echo Report Name: Cole Russo Age: 88 Gender: M : 1935 Exam Date: 06/17/2023 13:05 Exam Location: [facility] Ht (in): 70 Wt (lb): 150 Ordering Physician: Darek Mckenzie MD Attending/Referring Phys: Cloth Mercerizer Operator Naheed Pierce RD Procedure CPT: Indications: chf Cardiac Hx: Technical Quality: Fair Contrast 1: Total Dose (mL): Contrast 2: Total Dose (mL): MEASUREMENTS (Male / Female) Normal Values 2D ECHO LV Diastolic Diameter PLAX 4.6 cm 4.2 - 5.9 / 3.9 - 5.3 cm LV Systolic Diameter PLAX 3.3 cm IVS Diastolic Thickness 1.0 cm 0.6 - 1.0 / 0.6 - 0.9 cm LVPW Diastolic Thickness 1.2 cm 0.6 - 1.0 / 0.6 - 0.9 cm LV Relative Wall Thickness 0.5 RV Internal Dim ED PLAX 3.7 cm LVOT Diameter 2.5 cm Aortic Root Diameter 3.3 cm LA Systolic Diameter LX 3.6 cm 3.0 - 4.0 / 2.7 - 3.8 cm LV Diastolic Volume MOD BP 73.3 cm??? 67 - 155 / 56 - 104 cm??? LV Systolic Volume MOD BP 49.6 cm??? - 58 / 19 - 49 cm??? LV Ejection Fraction MOD BP 32.4 % >= 55 % LV Cardiac Index MOD BP 1205.5 cm???/min???m??? LV Diastolic Volume MOD 4C 97.4 cm??? LV Systolic Volume MOD 4C 56.8 cm??? LV Ejection Fraction MOD 4C 41.7 % LV Cardiac Index MOD 4C 2060.5 cm???/min???m??? LV Diastolic Length 4C 8.4 cm LV Systolic Length 4C 7.4 cm LV Diastolic Volume MOD 2C 50.3 cm??? LV Systolic Volume MOD 2C 40.7 cm??? LV Ejection Fraction MOD 2C 19.1 % LV Cardiac Index MOD 2C 487.4 cm???/min???m??? LV Diastolic Length 2C 7.6 cm LV Systolic Length 2C 7.0 cm LA Volume 64.9 cm??? 18 - 58 / 22 - 52 cm??? LA Volume Index 35.5 cm???/m??? 16 - 28 cm???/m??? DOPPLER AV Peak Velocity 153.3 cm/s AV Peak Gradient 9.4 mmHg AI Peak Velocity 392.0 cm/s AI Peak Gradient 61.5 mmHg AI Pressure Half Time 479.9 ms LVOT Peak Velocity 103.4 cm/s LVOT Peak Gradient 4.3 mmHg LVOT Velocity Time Integral 21.0 cm LVOT Stroke Volume 104.1 cm??? LVOT Stroke Volume Index 56.4 ml/m??? LVOT Cardiac Index 5289.8 cm???/min???m??? AV Area Cont Eq pk 3.3 cm??? MV Peak Velocity 119.2 cm/s MV Peak Gradient 5.7 mmHg MV Mean Velocity 64.6 cm/s MV Mean Gradient 1.9 mmHg MV Velocity Time Integral 32.0 cm MR Peak Velocity 418.9 cm/s MR Peak Gradient 70.2 mmHg Mitral E Point Velocity 87.5 cm/s Mitral A Point Velocity 76.1 cm/s Mitral E to A Ratio 1.1 MV Deceleration Time 156.3 ms TR Peak Velocity 338.8 cm/s TR Peak Gradient 45.9 mmHg Right Ventricular Systolic Press 50.9 mmHg PV Peak Velocity 134.6 cm/s PV Peak Gradient 7.2 mmHg FINDINGS Left Ventricle The ejection fraction is 35-40% Right Ventricle Normal right ventricular size. RVSP= 51mmHg. Right Atrium Normal right atrial size. RA area= 15cm2 Left Atrium Mild to moderate left atrial dilatation. LA volume index= 35ml/m2 Mitral Valve Mitral thickening. Mild to moderate MR. Aortic Valve Moderate AV calcification. Modrate AI. Tricuspid Valve Structurally normal tricuspid valve. Moderate TR. Pulmonic Valve Structurally normal pulmonic valve. Moderate PI. Pericardium Not well visualized. Aorta Normal size aortic root. CONCLUSIONS Impaired LV systolic function with EF around 35-40% [id number] mitral regurgitation Moderate aortic insufficiency Moderate tricuspid regurgitation Previewed by: Dr. Savage Jasmine MD (Electronically Signed) Final Date: 17 June 2023 18:49
[2023-06-17 20:43] LABS: Glucose,Whole Blood 184 mg/dL (70-110)
[2023-06-17] MEDS: guaiFENesin 600 MG TABLET.ER PO SCH (21:00)
[2023-06-18 06:32] LABS: Glucose,Whole Blood 172 mg/dL (70-110)
[2023-06-18] MEDS: INSULIN ASPART (NovoLOG) 100 UNIT/ML VIAL SQ SCH ×4 (06:33→21:25)
[2023-06-18 08:50] LABS: Anisocytosis Slight; Basophils % (A) 0 %; Eosinophils % (A) 0 %; HGB 8.9 gm/dL (13.0-17.5); Hypochromasia Marked; Lymphocytes # (A) 0.5 k/uL (1.0-4.8); Lymphocytes % (A) 5 %; MCH 18.7 pg (25.0-35.0); MCV 69.2 fL (80.0-100.0); Mean Platelet Volume 10.6; Microcytosis Marked; Monocytes # (A) 0.4 k/uL (0-1.0); Monocytes % (A) 3 %; Neutrophils # (A) 9.5 k/uL (1.3-7.7); Neutrophils % (A) 90 %; Platelet Count 161 k/uL (150-450); Poikilocytosis Slight; RBC 4.76 m/uL (4.30-5.90); RDW 19.6 % (11.5-15.5); WBC 10.5 k/uL (3.8-10.6)
[2023-06-18] MEDS: IPRATROPIUM-ALBUTEROL 3 ML NEB INHALATION SCH ×4 (09:11→22:34)
[2023-06-18] MEDS ORDERED: lisinopriL 5 MG TAB PO SCH (09:30)
[2023-06-18 09:33] LABS: African American GFR (CKD) 49 (>60 ml/min/1.73 sqM); Blood Urea Nitrogen 53 mg/dL (9-20); Calcium 8.3 mg/dL (8.4-10.2); Carbon Dioxide 29 mmol/L (22-30); Glucose 119 mg/dL (74-99); Magnesium 2.2 mg/dL (1.6-2.3); Non-African American GFR(CKD) 42 (>60 ml/min/1.73 sqM)
[2023-06-18] MEDS: methylPREDNISolone SOD SUCCI 40 MG/ML 1 ML VIAL IV SCH ×3 (09:34→22:58)
[2023-06-18] MEDS: ATORVASTATIN 20 MG TAB PO SCH (09:34)
[2023-06-18] MEDS: guaiFENesin 600 MG TABLET.ER PO SCH ×2 (09:35→21:25)
[2023-06-18] MEDS: CHOLECALCIFEROL 25 MCG (1000 IU) TABLET PO SCH (09:35)
[2023-06-18] MEDS: DAPAGLIFLOZIN PROPANEDIOL 10 MG TABLET PO SCH (09:35)
[2023-06-18] MEDS: METOPROLOL TARTRATE 25 MG TAB PO SCH ×2 (09:35→21:25)
[2023-06-18] MEDS: PANTOPRAZOLE 40 MG/10 ML VIAL IVP SCH ×2 (09:35→21:25)
[2023-06-18] MEDS: FUROSEMIDE 10 MG/ML 4 ML VIAL IV SCH (09:35)
[2023-06-18] MEDS: DOXYCYCLINE 100 MG CAP PO SCH ×2 (09:36→21:24)
[2023-06-18] MEDS: SODIUM FERRIC GLUCONAT-SUCROSE 125 MG in SODIUM CHLORIDE 0.9% 100 ML IVPB SCH (09:36)
[2023-06-18] MEDS: ASPIRIN 81 MG PO SCH (09:38)
[2023-06-18 10:08] LABS: Anion Gap 4 mmol/L; Chloride 113 mmol/L (98-107); Potassium 4.7 mmol/L (3.5-5.1); Sodium 146 mmol/L (137-145)
[2023-06-18] MEDS: MIDODRINE 5 MG TAB PO SCH ×3 (11:14→21:25)
[2023-06-18 11:43] LABS: Glucose,Whole Blood 214 mg/dL (70-110)
--- NOTE | 2023-06-18 11:52 | P.PN ---
Subjective HISTORY OF PRESENT ILLNESS: This is a 88-year-old male with a past medical history significant for cardiomyopathy with an ejection fraction of 45%, moderate aortic regurgitation, hyperlipidemia, orthostatic hypotension, and COPD. Patient follows in the office with Dr. Amaya. We have been asked to see the patient in consultation for congestive heart failure. Patient examined at the bedside. Patient is somewhat lethargic at the time of examination. Patient presented to the hospital with a chief complaint of shortness of breath. He states he has been feeling short of breath over the past few months but has gotten worse over the past few days. He denies any chest pain or pressure. He denies any history of congestive heart failure. He does report lower extremity edema which he states he usually does not have. The patient was found to be in acute CHF and was started on IV Lasix. He does report his breathing has improved since coming to the hospital. He is currently on supplemental oxygen with oxygen saturations greater than 92%. Blood pressure 141/65. DIAGNOSTICS: - EKG reveals sinus mechanism with no signs of acute ischemia. Right bundle branch block - Chest xray mild cardiomegaly and pulmonary vascular congestion. Small to moderate left and small right pleural effusions with adjacent atelectasis and/or consolidation - Laboratory data: WBC 7.4. Hemoglobin 8.3. Platelet count 139. D-dimer 1.68. Sodium 147. BUN 43. Creatinine 0.95. Troponin 0.067. 0.063. 0.074. proBNP 10,700. - Current home cardiac medications include midodrine 5 mg 3 times a day, simvastatin 20 mg daily, and aspirin 81 mg daily - Most recent echocardiogram obtained in October 2022 revealed ejection fraction 45 to 50%, moderate concentric LVH, moderate aortic regurgitation, mild mitral vegetation, and trace to mild tricuspid regurgitation -Patient underwent Lexiscan stress test in February 2022 revealing small fixed inferior defect consistent with diaphragmatic attenuation artifact. No reversible ischemia noted. EF estimated at 60% June 18, 2023 Patient examined this morning at the bedside. Patient currently denies chest pain or pressure. He continues to report shortness of breath and states it does not feel much improved from yesterday. He remains on IV Lasix 40 mg every 12 hours. Creatinine today is up to 1.46. Echocardiogram completed revealing ejection fraction 35 to 40%, mild to moderate mitral regurgitation, moderate aortic insufficiency, and moderate tricuspid regurgitation. Patient's blood pressures have remained stable with a systolic in the 140s. PHYSICAL EXAM: VITAL SIGNS: Reviewed. GENERAL: Well-developed in no acute distress. HEENT: Head is normocephalic. Pupils are equal, round. Sclerae anicteric. Mucous membranes of the mouth are moist. Neck supple. No JVD or thyromegaly LUNGS: Respirations even and unlabored. Lungs diminished with bibasilar rales HEART: Regular rate and rhythm. S1 and S2 heard. Diastolic murmur noted ABDOMEN: Soft. Nondistended. Nontender. EXTREMITIES: Normal range of motion. No clubbing or cyanosis. Peripheral pulses intact. 2+ bilateral lower extremity edema NEUROLOGIC: Awake and alert. Oriented x 3. ASSESSMENT: Shortness of breath Acute heart failure with reduced EF, 35 to 40% Elevated troponins, flat, likely secondary to above, no evidence of acute coronary syndrome Acute anemia, hemoglobin 8.3, previously 12.1 Acute kidney injury Valvular heart disease including moderate aortic regurgitation Hyperlipidemia History of orthostatic hypotension, maintained on midodrine outpatient History of COPD Nonsustained ventricular tachycardia PLAN: Evaluation of anemia per internal medicine Discontinue IV Lasix as patient's kidney function is worsening today. Repeat kidney function in a.m. Patient does have a history of orthostatic hypotension and is maintained on midodrine outpatient. He has previously been unable to tolerate cardiomyopathy regimen. However patient's blood pressures have been stable since admission. We will add lisinopril 5 mg daily and metoprolol titrate 25 mg twice a day. If patient's blood pressure remains stable, may discontinue midodrine tomorrow Further recommendations pending patient course Nurse practitioner note has been reviewed by physician. Signing provider agrees with the documented findings, assessment, and plan of care documented by BEVELER as a scribe. Objective - Vital Signs Vital signs: Vital Signs Temp 97.8 F 06/18/23 09:14 Pulse 90 06/18/23 09:23 Resp 20 06/18/23 09:14 BP 140/64 06/18/23 09:14 Pulse Ox 98 06/18/23 09:13 FiO2 Intake & Output 06/17/23 06/18/23 06/18/23 18:59 06:59 18:59 Intake Total 2280 728 608 Output Total 1000 1300 Balance 1280 -572 608 Weight 76.5 kg Intake: IV 10 10 Invasive Line 1 10 10 Oral 1560 718 598 Other 720 Output: Urine 1000 1300 Other: Voiding Method Diaper Diaper Diaper External Catheter External Catheter External Catheter # Bowel Movements 1 - Labs CBC & Chem 7: 06/18/23 07:44 06/18/23 07:44 Labs: Abnormal Lab Results - Last 24 Hours (Table) 06/17/23 06/17/23 06/17/23 Range/Units 08:52 11:48 17:01 Hgb (13.0-17.5) gm/dL Hct (39.0-53.0) % MCV (80.0-100.0) fL MCH (25.0-35.0) pg MCHC (31.0-37.0) g/dL RDW (11.5-15.5) % Neutrophils # (1.3-7.7) k/uL Lymphocytes # (1.0-4.8) k/uL Sodium (137-145) mmol/L Chloride (98-107) mmol/L BUN (9-20) mg/dL Creatinine (0.66-1.25) mg/dL Glucose (74-99) mg/dL POC Glucose (mg/dL) 187 H 223 H (70-110) mg/dL Calcium (8.4-10.2) mg/dL Iron 12 L (65-175) UG/DL % Saturation 2.86 L (15.00-50.00) 06/17/23 06/18/23 06/18/23 Range/Units 20:42 06:30 07:44 Hgb 8.9 L (13.0-17.5) gm/dL Hct 33.0 L (39.0-53.0) % MCV 69.2 L (80.0-100.0) fL MCH 18.7 L (25.0-35.0) pg MCHC 27.0 L (31.0-37.0) g/dL RDW 19.6 H (11.5-15.5) % Neutrophils # 9.5 H (1.3-7.7) k/uL Lymphocytes # 0.5 L (1.0-4.8) k/uL Sodium (137-145) mmol/L Chloride (98-107) mmol/L BUN (9-20) mg/dL Creatinine (0.66-1.25) mg/dL Glucose (74-99) mg/dL POC Glucose (mg/dL) 184 H 172 H (70-110) mg/dL Calcium (8.4-10.2) mg/dL Iron (65-175) UG/DL % Saturation (15.00-50.00) 06/18/23 06/18/23 Range/Units 07:44 11:41 Hgb (13.0-17.5) gm/dL Hct (39.0-53.0) % MCV (80.0-100.0) fL MCH (25.0-35.0) pg MCHC (31.0-37.0) g/dL RDW (11.5-15.5) % Neutrophils # (1.3-7.7) k/uL Lymphocytes # (1.0-4.8) k/uL Sodium 146 H (137-145) mmol/L Chloride 113 H (98-107) mmol/L BUN 53 H (9-20) mg/dL Creatinine 1.46 H (0.66-1.25) mg/dL Glucose 119 H (74-99) mg/dL POC Glucose (mg/dL) 214 H (70-110) mg/dL Calcium 8.3 L (8.4-10.2) mg/dL Iron (65-175) UG/DL % Saturation (15.00-50.00) Microbiology - Last 24 Hours (Table) 06/16/23 22:55 Blood Culture - Preliminary Blood 06/16/23 22:40 Blood Culture - Preliminary Blood
[2023-06-18] MEDS: BENZONATATE 100 MG CAP PO PRN (13:27)
--- NOTE | 2023-06-18 13:54 | CT ---
EXAMINATION TYPE: CT abdomen pelvis wo con DATE OF EXAM: 06/18/2023 COMPARISON: None INDICATION: left groin pain DLP: 735.1 mGycm, Automated exposure control for dose reduction was used. CONTRAST: 0 mL of Isovue 300. Study performed without Oral Contrast TECHNIQUE: Axial images were obtained from above the diaphragm to the pubic rami in the axial plane a t 5 mm thick sections. Reconstructed images are reviewed on the computer in the coronal plane. FINDINGS: Limited CT sections are obtained the lung bases. There is a small right pleural effusion. Minimal le ft pleural effusion is present. Some compressive atelectasis is suggested. Coronary artery calcificat ion is present. Cardiomegaly is present.. CT ABDOMEN: Liver: Hepatic cyst is present Spleen: Normal Pancreas: Normal Adrenal glands: The adrenal glands are normal. Gallbladder: Normal as visualized. Kidneys: No masses are evident. There is mild left hydronephrosis. Left hydroureter is present. No ob structing renal stone or other etiology is evident. There are cysts present on the right kidney. No renal stones are identified Aorta: Vascular calcification is within the aorta. Inferior vena cava: Normal. CT PELVIS: Fecal debris is to the colon. Small bowel loops appear unremarkable. Appendix: Normal as visualized Urinary bladder: Distended Genitourinary structures: Prostate is markedly enlarged. Osseous structures: No suspicious lytic or sclerotic lesions. There is a left inguinal hernia. This contains fluid. No loops of bowel are involved. IMPRESSION: 1. Left inguinal hernia with fluid. No loops of bowel are involved. 2. Distended urinary bladder very prominent prostate. 3. Small right and minimal left pleural effusion with adjacent compressive atelectasis
--- NOTE | 2023-06-18 14:17 | P.PN ---
Subjective Progress Note Date: 06/18/23 Patient is an 88-year-old male with GERD, Patel's esophagus, asthma, dyslipidemia, and iron deficiency anemia who presents to the emergency department with shortness of breath. In the ER he underwent extensive evaluation. Initial vital signs were remarkable for blood pressure 168/96 and O2 sat 99% on 4 L nasal cannula. Initial laboratory analysis was remarkable for hemoglobin 8.3 (last known hemoglobin 12.1 11/15/2022), platelets 139, D-dimer 1.68, sodium 147, chloride 118, BUN 43, troponin 0.067, and BNP 10,700. Urinalysis was consistent with possible urinary tract infection and white blood cells greater than 182 with large leukocyte esterase. Influenza A/B/RSV/COVID- 19 testing was negative. Initial chest x-ray demonstrated mild cardiomegaly with pulmonary vascular congestion and possible pleural effusions. This was followed up by a CTA of the chest which demonstrated small right and minimal left pleural effusions with no persistent filling defects to suggest acute pulmonary embolism. Initial EKG demonstrated sinus rhythm with possible PVCs, right bundle branch block. Patient was admitted for acute exacerbation of asthma and acute exacerbation of congestive heart failure. He was started on Lasix. Echocardiogram was ordered and cardiology was consulted. Echocardiogram revealed ejection fraction 35 to 40%, moderate aortic insufficiency, moderate tricuspid regurgitation. Patient was continued on diuresis. Patient seen and examined at bedside. He complains of left groin pain. Denies any nausea, vomiting, diarrhea. Still feeling short of breath and congested. Vital signs reviewed General: Nontoxic, no distress, appears at stated age Cardiovascular: S1S2 reg, no murmur Lungs: Coarse breath sounds bilateral, no rhonchi, no rales, no accessory muscle use Abdominal: Soft, nontender to palpation, no guarding, pain to palpation over the left groin with bulbous protrusion Ext: No gross muscle atrophy, no edema b/l lower extremities, no contractures Neuro: CN II-XI grossly intact, no focal neuro deficits Psych: Alert, oriented, appropriate affect Assessment/Plan: Acute systolic CHF with EF 35-40% Acute hypoxic respiratory failure Elevated troponin, type II non-STEMI secondary to acute exacerbation of CHF Dyslipidemia -Cardiology note reviewed from 06/17/2023: Patient has a history of orthostatic hypotension and requires maintenance on midodrine therapy. He has been previously unable to tolerate cardiomyopathy regiment. -Aspirin 81 mg daily, Lipitor 20 mg daily -Farxiga 10 mg daily -Midodrine 5 mg 3 times daily. -Rising creatinine will decrease Lasix to 40 mg IV push once daily. Monitor fluid status closely with Farxiga 10 mg daily -Hold lisinopril tomorrow until creatinine available Inguinal pain Left inguinal hernia, no bowel loops contained - CT ordered and reviewed with distended bladder and mild left hydro, will check post-void, low threshold for indwelling beaver - Flomax 0.4 mg PO daily Acute Exacerbation of Asthma -Continue with DuoNebs 4 times daily scheduled and 4 times daily as needed, Solu-Medrol 40 mg IV every 8 hours, Mucinex 1200 mg p.o. twice daily. UTI - stop rocephin satrt Zosyn 3.375 g IBPB D # 1 while awaiting sensitivities from urine - Await urine culture - Blood cultures negative to date Iron Deficiency Anemia Patel's Esophagus -Patient has a history of Patel's esophagus with last EGD completed 4 years ago. He does need to have a repeat one completed in the outpatient setting as he was supposed to have this done 2 to 3 years after his last procedure -Patient will benefit from IV iron x 3 doses given his systolic congestive heart failure -Continue with Protonix 40 mg IV push twice daily with plan to convert to oral on discharge. Imaging: Echocardiogram shows ejection fraction 35 to 40%, moderate AI, moderate tricuspid regurgitation Data Review: Labs reviewed from today include CBC and basic metabolic profile which are remarkable for hemoglobin 8.9, sodium 146, BUN 53, creatinine 1.46, blood sugar 214. A1c 5.8 Urine culture-- group D eneterococcus DVT prophylaxis: SCDs Anticipated discharge date: Pending Clinical Course Anticipated discharge place: Pending Clinical Course This dictation was prepared using [email or web address] voice recognition software. Though every attempt is made to correct errors during dictation some may still exist. Objective - Vital Signs Vital signs: Vital Signs Temp 98.6 F 06/18/23 04:00 Pulse 85 06/18/23 04:00 Resp 18 06/18/23 04:00 BP 156/77 06/18/23 04:00 Pulse Ox 96 06/18/23 04:00 FiO2 Intake & Output 06/17/23 06/18/23 06/18/23 18:59 06:59 18:59 Intake Total 2280 728 Output Total 1000 1300 Balance 1280 -572 Weight 76.5 kg Intake: IV 10 Invasive Line 1 10 Oral 1560 718 Other 720 Output: Urine 1000 1300 Other: Voiding Method Diaper Diaper External Catheter External Catheter # Bowel Movements 1 - Labs CBC & Chem 7: 06/18/23 07:44 06/18/23 07:44 Labs: Abnormal Lab Results - Last 24 Hours (Table) 06/17/23 06/17/23 06/17/23 Range/Units 08:52 08:52 11:48 Hgb 8.6 L (13.0-17.5) gm/dL Hct 31.1 L (39.0-53.0) % MCV 71.8 L (80.0-100.0) fL MCH 20.0 L (25.0-35.0) pg MCHC 27.8 L (31.0-37.0) g/dL RDW 19.4 H (11.5-15.5) % Plt Count 137 L (150-450) k/uL Lymphocytes # (Manual) 0.48 L (1.0-4.8) k/uL Sodium 146 H (137-145) mmol/L Chloride 115 H (98-107) mmol/L BUN 42 H (9-20) mg/dL Glucose 129 H (74-99) mg/dL POC Glucose (mg/dL) 187 H (70-110) mg/dL Iron 12 L (65-175) UG/DL % Saturation 2.86 L (15.00-50.00) 06/17/23 06/17/23 06/18/23 Range/Units 17:01 20:42 06:30 Hgb (13.0-17.5) gm/dL Hct (39.0-53.0) % MCV (80.0-100.0) fL MCH (25.0-35.0) pg MCHC (31.0-37.0) g/dL RDW (11.5-15.5) % Plt Count (150-450) k/uL Lymphocytes # (Manual) (1.0-4.8) k/uL Sodium (137-145) mmol/L Chloride (98-107) mmol/L BUN (9-20) mg/dL Glucose (74-99) mg/dL POC Glucose (mg/dL) 223 H 184 H 172 H (70-110) mg/dL Iron (65-175) UG/DL % Saturation (15.00-50.00) Microbiology - Last 24 Hours (Table) 06/16/23 22:55 Blood Culture - Preliminary Blood 06/16/23 22:40 Blood Culture - Preliminary Blood
[2023-06-18 16:14] LABS: Glucose,Whole Blood 146 mg/dL (70-110)
[2023-06-18] MEDS: PIPERACILLIN-TAZOBACTAM 3.375 GM in SODIUM CHLORIDE 0.9% 100 ML IVPB SCH ×2 (16:40→22:58)
[2023-06-18] MEDS: TAMSULOSIN 0.4 MG CAP.ER.24H PO SCH (18:01)
[2023-06-18 19:54] LABS: Glucose,Whole Blood 149 mg/dL (70-110)
[2023-06-19 06:12] LABS: Glucose,Whole Blood 153 mg/dL (70-110)
[2023-06-19] MEDS: INSULIN ASPART (NovoLOG) 100 UNIT/ML VIAL SQ SCH ×4 (06:41→21:01)
[2023-06-19] MEDS: IPRATROPIUM-ALBUTEROL 3 ML NEB INHALATION SCH ×4 (08:25→21:39)
[2023-06-19 09:27] LABS: Anisocytosis Slight; HCT 33.5 % (39.0-53.0); HGB 8.8 gm/dL (13.0-17.5); Hypochromasia Marked; MCH 18.7 pg (25.0-35.0); MCHC 26.3 g/dL (31.0-37.0); MCV 71.1 fL (80.0-100.0); Mean Platelet Volume 10.9; Microcytosis Marked; Platelet Count 138 k/uL (150-450); Poikilocytosis Slight; RBC 4.71 m/uL (4.30-5.90); RDW 19.7 % (11.5-15.5); WBC 11.8 k/uL (3.8-10.6)
[2023-06-19] MEDS: PIPERACILLIN-TAZOBACTAM 3.375 GM in SODIUM CHLORIDE 0.9% 100 ML IVPB SCH ×3 (09:39→23:28)
[2023-06-19] MEDS: SODIUM FERRIC GLUCONAT-SUCROSE 125 MG in SODIUM CHLORIDE 0.9% 100 ML IVPB SCH (09:39)
[2023-06-19] MEDS: methylPREDNISolone SOD SUCCI 40 MG/ML 1 ML VIAL IV SCH (09:40)
[2023-06-19] MEDS: METOPROLOL TARTRATE 25 MG TAB PO SCH ×2 (09:40→21:00)
[2023-06-19] MEDS: DAPAGLIFLOZIN PROPANEDIOL 10 MG TABLET PO SCH (09:40)
[2023-06-19] MEDS: ATORVASTATIN 20 MG TAB PO SCH (09:40)
[2023-06-19] MEDS: FERROUS SULFATE 325 MG TAB PO SCH (09:40)
[2023-06-19] MEDS: ASPIRIN 81 MG PO SCH (09:40)
[2023-06-19] MEDS: CHOLECALCIFEROL 25 MCG (1000 IU) TABLET PO SCH (09:40)
[2023-06-19] MEDS: DOXYCYCLINE 100 MG CAP PO SCH ×2 (09:40→21:00)
[2023-06-19] MEDS: guaiFENesin 600 MG TABLET.ER PO SCH ×2 (09:40→21:00)
[2023-06-19] MEDS: MIDODRINE 5 MG TAB PO SCH (09:41)
[2023-06-19] MEDS: PANTOPRAZOLE 40 MG/10 ML VIAL IVP SCH ×2 (09:41→21:00)
[2023-06-19 09:48] LABS: African American GFR (CKD) 50 (>60 ml/min/1.73 sqM); Anion Gap 4 mmol/L; Blood Urea Nitrogen 51 mg/dL (9-20); Calcium 8.2 mg/dL (8.4-10.2); Carbon Dioxide 28 mmol/L (22-30); Chloride 114 mmol/L (98-107); Glucose 159 mg/dL (74-99); Magnesium 2.2 mg/dL (1.6-2.3); Non-African American GFR(CKD) 43 (>60 ml/min/1.73 sqM); Potassium 4.2 mmol/L (3.5-5.1); Sodium 146 mmol/L (137-145)
--- NOTE | 2023-06-19 10:03 | P.PN ---
Subjective HISTORY OF PRESENT ILLNESS: This is a 88-year-old male with a past medical history significant for cardiomyopathy with an ejection fraction of 45%, moderate aortic regurgitation, hyperlipidemia, orthostatic hypotension, and COPD. Patient follows in the office with Dr. Amaya. We have been asked to see the patient in consultation for congestive heart failure. Patient examined at the bedside. Patient is somewhat lethargic at the time of examination. Patient presented to the hospital with a chief complaint of shortness of breath. He states he has been feeling short of breath over the past few months but has gotten worse over the past few days. He denies any chest pain or pressure. He denies any history of congestive heart failure. He does report lower extremity edema which he states he usually does not have. The patient was found to be in acute CHF and was started on IV Lasix. He does report his breathing has improved since coming to the hospital. He is currently on supplemental oxygen with oxygen saturations greater than 92%. Blood pressure 141/65. DIAGNOSTICS: - EKG reveals sinus mechanism with no signs of acute ischemia. Right bundle branch block - Chest xray mild cardiomegaly and pulmonary vascular congestion. Small to moderate left and small right pleural effusions with adjacent atelectasis and/or consolidation - Laboratory data: WBC 7.4. Hemoglobin 8.3. Platelet count 139. D-dimer 1.68. Sodium 147. BUN 43. Creatinine 0.95. Troponin 0.067. 0.063. 0.074. proBNP 10,700. - Current home cardiac medications include midodrine 5 mg 3 times a day, simvastatin 20 mg daily, and aspirin 81 mg daily - Most recent echocardiogram obtained in October 2022 revealed ejection fraction 45 to 50%, moderate concentric LVH, moderate aortic regurgitation, mild mitral vegetation, and trace to mild tricuspid regurgitation -Patient underwent Lexiscan stress test in February 2022 revealing small fixed inferior defect consistent with diaphragmatic attenuation artifact. No reversible ischemia noted. EF estimated at 60% June 18, 2023 Patient examined this morning at the bedside. Patient currently denies chest pain or pressure. He continues to report shortness of breath and states it does not feel much improved from yesterday. He remains on IV Lasix 40 mg every 12 hours. Creatinine today is up to 1.46. Echocardiogram completed revealing ejection fraction 35 to 40%, mild to moderate mitral regurgitation, moderate aortic insufficiency, and moderate tricuspid regurgitation. Patient's blood pressures have remained stable with a systolic in the 140s. June 19, 2023 Patient examined this morning at bedside. Patient currently denies chest pain or pressure. He denies shortness of breath. He does report a productive cough this morning. Patient's diuretics were discontinued yesterday as he developed CASIMIRO with a creatinine of 1.46. Blood pressure 126/58. PHYSICAL EXAM: VITAL SIGNS: Reviewed. GENERAL: Well-developed in no acute distress. HEENT: Head is normocephalic. Pupils are equal, round. Sclerae anicteric. Mucous membranes of the mouth are moist. Neck supple. No JVD or thyromegaly LUNGS: Respirations even and unlabored. Lungs with rhonchi throughout. HEART: Regular rate and rhythm. S1 and S2 heard. Diastolic murmur noted ABDOMEN: Soft. Nondistended. Nontender. EXTREMITIES: Normal range of motion. No clubbing or cyanosis. Peripheral pulses intact. Minimal bilateral lower extremity edema NEUROLOGIC: Awake and alert. Oriented x 3. ASSESSMENT: Shortness of breath Acute heart failure with reduced EF, 35 to 40% Elevated troponins, flat, likely secondary to above, no evidence of acute coronary syndrome Acute anemia, hemoglobin 8.3, previously 12.1 Acute kidney injury Valvular heart disease including moderate aortic regurgitation Hyperlipidemia History of orthostatic hypotension, maintained on midodrine outpatient History of COPD Nonsustained ventricular tachycardia PLAN: Evaluation of anemia per internal medicine Continue to hold diuretics today. Repeat kidney function in a.m. If kidney function improves tomorrow, may resume small dose of oral Lasix Patient does have a history of orthostatic hypotension and is maintained on midodrine outpatient. He has previously been unable to tolerate cardiomyopathy regimen. However patient's blood pressures have been stable since admission. We have added metoprolol and lisinopril. We will discontinue midodrine today and continue to monitor blood pressures. If blood pressures drop, will resume midodrine. Further recommendations pending patient course Nurse practitioner note has been reviewed by physician. Signing provider agrees with the documented findings, assessment, and plan of care documented by CHRONIC DISEASE EPIDEMIOLOGIST as a scribe. Objective - Vital Signs Vital signs: Vital Signs Temp 98.0 F 06/19/23 08:00 Pulse 77 06/19/23 08:36 Resp 20 06/19/23 08:00 BP 126/58 06/19/23 08:00 Pulse Ox 94 L 06/19/23 08:25 FiO2 Intake & Output 06/18/23 06/19/23 06/19/23 18:59 06:59 18:59 Intake Total 966 546 486 Output Total 1550 1500 375 Balance -584 -954 111 Weight 74.5 kg Intake: IV 10 10 10 Invasive Line 1 10 10 Invasive Line 2 10 Oral 956 [id number] Output: Urine 1550 1500 375 Coude 1150 Other: Voiding Method Diaper Diaper External Catheter Indwelling Catheter # Voids 3 - Labs CBC & Chem 7: 06/19/23 07:52 06/19/23 07:52 Labs: Abnormal Lab Results - Last 24 Hours (Table) 06/18/23 06/18/23 06/18/23 Range/Units 07:44 11:41 16:13 WBC (3.8-10.6) k/uL Hgb (13.0-17.5) gm/dL Hct (39.0-53.0) % MCV (80.0-100.0) fL MCH (25.0-35.0) pg MCHC (31.0-37.0) g/dL RDW (11.5-15.5) % Plt Count (150-450) k/uL Sodium 146 H (137-145) mmol/L Chloride 113 H (98-107) mmol/L BUN (9-20) mg/dL Creatinine (0.66-1.25) mg/dL Glucose (74-99) mg/dL POC Glucose (mg/dL) 214 H 146 H (70-110) mg/dL Calcium (8.4-10.2) mg/dL Phosphorus (2.5-4.5) mg/dL 06/18/23 06/19/23 06/19/23 Range/Units 19:52 06:11 07:52 WBC 11.8 H (3.8-10.6) k/uL Hgb 8.8 L (13.0-17.5) gm/dL Hct 33.5 L (39.0-53.0) % MCV 71.1 L (80.0-100.0) fL MCH 18.7 L (25.0-35.0) pg MCHC 26.3 L (31.0-37.0) g/dL RDW 19.7 H (11.5-15.5) % Plt Count 138 L (150-450) k/uL Sodium (137-145) mmol/L Chloride (98-107) mmol/L BUN (9-20) mg/dL Creatinine (0.66-1.25) mg/dL Glucose (74-99) mg/dL POC Glucose (mg/dL) 149 H 153 H (70-110) mg/dL Calcium (8.4-10.2) mg/dL Phosphorus (2.5-4.5) mg/dL 06/19/23 Range/Units 07:52 WBC (3.8-10.6) k/uL Hgb (13.0-17.5) gm/dL Hct (39.0-53.0) % MCV (80.0-100.0) fL MCH (25.0-35.0) pg MCHC (31.0-37.0) g/dL RDW (11.5-15.5) % Plt Count (150-450) k/uL Sodium 146 H (137-145) mmol/L Chloride 114 H (98-107) mmol/L BUN 51 H (9-20) mg/dL Creatinine 1.43 H (0.66-1.25) mg/dL Glucose 159 H (74-99) mg/dL POC Glucose (mg/dL) (70-110) mg/dL Calcium 8.2 L (8.4-10.2) mg/dL Phosphorus 5.0 H (2.5-4.5) mg/dL Microbiology - Last 24 Hours (Table) 06/16/23 22:55 Blood Culture - Preliminary Blood 06/16/23 22:40 Blood Culture - Preliminary Blood 06/16/23 23:23 Urine Culture - Preliminary Urine,Clean Catch Group D Enterococcus
[2023-06-19 11:39] LABS: Glucose,Whole Blood 243 mg/dL (70-110)
--- NOTE | 2023-06-19 11:43 | P.PN ---
Subjective Progress Note Date: 06/19/23 Patient is an 88-year-old male with GERD, Patel's esophagus, asthma, dyslipidemia, and iron deficiency anemia who presents to the emergency department with shortness of breath. In the ER he underwent extensive evaluation. Initial vital signs were remarkable for blood pressure 168/96 and O2 sat 99% on 4 L nasal cannula. Initial laboratory analysis was remarkable for hemoglobin 8.3 (last known hemoglobin 12.1 11/15/2022), platelets 139, D-dimer 1.68, sodium 147, chloride 118, BUN 43, troponin 0.067, and BNP 10,700. Urinalysis was consistent with possible urinary tract infection and white blood cells greater than 182 with large leukocyte esterase. Influenza A/B/RSV/COVID- 19 testing was negative. Initial chest x-ray demonstrated mild cardiomegaly with pulmonary vascular congestion and possible pleural effusions. This was followed up by a CTA of the chest which demonstrated small right and minimal left pleural effusions with no persistent filling defects to suggest acute pulmonary embolism. Initial EKG demonstrated sinus rhythm with possible PVCs, right bundle branch block. Patient was admitted for acute exacerbation of asthma and acute exacerbation of congestive heart failure. He was started on Lasix. Echocardiogram was ordered and cardiology was consulted. Echocardiogram revealed ejection fraction 35 to 40%, moderate aortic insufficiency, moderate tricuspid regurgitation. Patient was continued on diuresis. Patient seen and examined at bedside. His groin pain is better than yesterday but is still sometimes present. He states that he is breathing well. He denies any other complaints currently. Vital signs reviewed General: Nontoxic, no distress, appears at stated age Cardiovascular: S1S2 reg, no murmur Lungs: Coarse breath sounds bilateral, no rhonchi, no rales, no accessory muscle use Abdominal: Soft, nontender to palpation, no guarding, pain to palpation over the left groin with bulbous protrusion Ext: No gross muscle atrophy, no edema b/l lower extremities, no contractures Neuro: CN II-XI grossly intact, no focal neuro deficits Psych: Alert, oriented, appropriate affect Assessment/Plan: Acute systolic CHF with EF 35-40% Acute hypoxic respiratory failure Elevated troponin, type II non-STEMI secondary to acute exacerbation of CHF Dyslipidemia -Cardiology note reviewed: Hold diuretics due to worsening renal function. Stop midodrine today and continue to monitor blood pressures. -Aspirin 81 mg daily, Lipitor 20 mg daily -Farxiga 10 mg daily - Metoprolol 25 mg twice daily -Hold lisinopril, repeat creatinine available Urinary retention with prostamegaly Left inguinal hernia, no bowel loops contained -Horton was inserted on 06/19/2023 with return of 1050 cc of urine -Flomax 0.4 mg daily -Consult urology-- follows with Dr. Zamora in the outpatient setting Acute Exacerbation of Asthma -Continue with DuoNebs 4 times daily scheduled and 4 times daily as needed, Solu-Medrol discontinued and started on prednisone 40 mg daily, Mucinex 1200 mg p.o. twice daily. UTI - Zosyn 3.375 g IBPB D # 2 while awaiting sensitivities from urine - Blood cultures negative to date Iron Deficiency Anemia Patel's Esophagus -Patient has a history of Aptel's esophagus with last EGD completed 4 years ago. He does need to have a repeat one completed in the outpatient setting as he was supposed to have this done 2 to 3 years after his last procedure -Patient will benefit from IV iron x 3 doses given his systolic congestive heart failure D # 2 -Continue with Protonix 40 mg IV push twice daily with plan to convert to oral on discharge. Imaging: CT abdomen and pelvis reviewed shows left inguinal hernia with fluid and no loops of bowel present, distended urinary bladder with prominent prostate, and small right with minimal left pleural effusion. Data Review: Labs reviewed from today include CBC and basic metabolic profile which are remarkable for white blood cell count 11.8, hemoglobin 8.8, platelets 138, sodium 146, BUN 51, creatinine 1.43. Urine culture-- group D eneterococcus DVT prophylaxis: SCDs Anticipated discharge date: Pending Clinical Course Anticipated discharge place: Pending Clinical Course This dictation was prepared using [employer] voice recognition software. Though every attempt is made to correct errors during dictation some may still exist. Objective - Vital Signs Vital signs: Vital Signs Temp 98.0 F 06/19/23 08:00 Pulse 77 06/19/23 08:36 Resp 20 06/19/23 08:00 BP 126/58 06/19/23 08:00 Pulse Ox 94 L 06/19/23 08:25 FiO2 Intake & Output 06/18/23 06/19/23 06/19/23 18:59 06:59 18:59 Intake Total 966 546 486 Output Total 1550 1500 375 Balance -584 -024 111 Weight 74.5 kg Intake: IV 10 10 10 Invasive Line 1 10 10 Invasive Line 2 10 Oral 950 849 202 Output: Urine 1550 1500 375 Coude 1150 Other: Voiding Method Diaper Diaper Diaper External Catheter Indwelling Catheter Indwelling Catheter # Voids 3 - Labs CBC & Chem 7: 06/19/23 07:52 06/19/23 07:52 Labs: Abnormal Lab Results - Last 24 Hours (Table) 06/18/23 06/18/23 06/18/23 Range/Units 11:41 16:13 19:52 WBC (3.8-10.6) k/uL Hgb (13.0-17.5) gm/dL Hct (39.0-53.0) % MCV (80.0-100.0) fL MCH (25.0-35.0) pg MCHC (31.0-37.0) g/dL RDW (11.5-15.5) % Plt Count (150-450) k/uL Sodium (137-145) mmol/L Chloride (98-107) mmol/L BUN (9-20) mg/dL Creatinine (0.66-1.25) mg/dL Glucose (74-99) mg/dL POC Glucose (mg/dL) 214 H 146 H 149 H (70-110) mg/dL Calcium (8.4-10.2) mg/dL Phosphorus (2.5-4.5) mg/dL 06/19/23 06/19/23 06/19/23 Range/Units 06:11 07:52 07:52 WBC 11.8 H (3.8-10.6) k/uL Hgb 8.8 L (13.0-17.5) gm/dL Hct 33.5 L (39.0-53.0) % MCV 71.1 L (80.0-100.0) fL MCH 18.7 L (25.0-35.0) pg MCHC 26.3 L (31.0-37.0) g/dL RDW 19.7 H (11.5-15.5) % Plt Count 138 L (150-450) k/uL Sodium 146 H (137-145) mmol/L Chloride 114 H (98-107) mmol/L BUN 51 H (9-20) mg/dL Creatinine 1.43 H (0.66-1.25) mg/dL Glucose 159 H (74-99) mg/dL POC Glucose (mg/dL) 153 H (70-110) mg/dL Calcium 8.2 L (8.4-10.2) mg/dL Phosphorus 5.0 H (2.5-4.5) mg/dL Microbiology - Last 24 Hours (Table) 06/16/23 22:55 Blood Culture - Preliminary Blood 06/16/23 22:40 Blood Culture - Preliminary Blood 06/16/23 23:23 Urine Culture - Preliminary Urine,Clean Catch Group D Enterococcus
[2023-06-19] MEDS: predniSONE 20 MG TAB PO SCH (12:18)
--- NOTE | 2023-06-19 12:59 | P.GSCN ---
History of Present Illness Consult date: 06/19/23 Reason for Consult: BPH, urinary retention History of present illness: This is an 88-year-old male admitted to the hospital with CHF exacerbation. Urology is consulted for urinary retention. Patient had a Horton catheter placed for postvoid residual of 1.1 L. At baseline he indicated he does have obstructive urinary symptoms with weak stream with straining with urination. Denies any gross hematuria or dysuria. Does have previous history of urinary retention requiring a Horton catheter. He underwent a CT abdomen and pelvis that showed evidence of prostatomegaly, with distended bladder and had multiple bladder stones within the bladder. No previous history of recurrent UTIs, kidney stones. No known family history of prostate cancer. At home he does not take any medication to assist with voiding. He was started on Flomax during his hospital admission Review of Systems - Constitutional Denies fever, Denies weight loss - EENT Ears, nose, mouth and throat: Denies dysphagia - Cardiovascular Denies chest pain, Denies shortness of breath - Respiratory Denies cough, Denies 7 - Gastrointestinal Denies abdominal pain, Denies nausea, Denies vomiting - Genitourinary Denies dysuria, Denies flank pain, Denies hematuria - Integumentary Denies rash, Denies unusual bruising - Neurological Denies headaches, Denies syncope Past Medical History Past Medical History: Cancer, COPD, Eye Disorder, Hypertension, Myocardial Infarction ([place]), Prostate Disorder Additional Past Medical History / Comment(s): states has nodule in "throat", states prostate ca, hx of thyroid nodules, hx of asbestos exposure, hx of collapsed lung, left eye macular deg. Last Myocardial Infarction Date:: 1978 History of Any Multi-Drug Resistant Organisms: None Reported Past Surgical History: Hernia Repair Additional Past Surgical History / Comment(s): chest tube, collapsed lung, berkley cataracts, partial thyroidectomy Past Anesthesia/Blood Transfusion Reactions: No Reported Reaction Past Psychological History: Depression Smoking Status: Never smoker Past Alcohol Use History: Rare Past Drug Use History: None Reported - Past Family History Mother Family Medical History: No Reported History Medications and Allergies Home Medications Medication Instructions Recorded Confirmed Type Albuterol Nebulized [Ventolin 2.5 mg INHALATION RT-Q6H PRN 09/25/18 06/16/23 History Nebulized] Aspirin EC [Ecotrin Low Dose] 81 mg PO DAILY 09/25/18 06/16/23 History Simvastatin [Zocor] 20 mg PO DAILY 09/25/18 06/16/23 History Albuterol Inhaler [Ventolin Hfa 1 - 2 puff INHALATION RT-Q6H PRN 06/16/23 06/16/23 History Inhaler] Cholecalciferol [Vitamin D3 (25 25 mcg PO DAILY 06/16/23 06/16/23 History Mcg = 1000 Iu)] Ferrous Sulfate [Feosol] 325 mg PO Q48H 06/16/23 06/16/23 History Fluticasone Furoate [Flonase 2 spray EA NOSTRIL DAILY PRN 06/16/23 06/16/23 History Sensimist] Loperamide [Imodium] 2 - 4 mg PO QID PRN MDD 16 MG 06/16/23 06/16/23 History Midodrine [ProAmatine] 5 mg PO TID 06/16/23 06/16/23 History Omeprazole 20 mg PO DAILY 06/16/23 06/16/23 History Vit C/E/Zn/Coppr/Lutein/Zeaxan 1 cap PO BID 06/16/23 06/16/23 History [Preservision Areds 2 Softgel] Allergies Allergy/AdvReac Type Severity Reaction Status Date / Time No Known Allergies Allergy Verified 06/16/23 16:45 Surgical - Exam Vital Signs Temp Pulse Resp BP Pulse Ox 98 F 94 18 168/96 99 06/16/23 14:25 06/16/23 14:25 06/16/23 14:25 06/16/23 14:25 06/16/23 14:25 - General no distress, no pain - Eyes normal ocular movement, no pale - ENT normal nares, normal mucosa - Respiratory normal expansion, normal respiratory effort - Abdomen Abdomen: soft, non tender, no distended - Psychiatric oriented to time, oriented to person, oriented to place Results - Labs 06/19/23 07:52 06/19/23 07:52 Abnormal Lab Results - Last 24 Hours (Table) 06/18/23 06/18/23 06/19/23 Range/Units 16:13 19:52 06:11 WBC (3.8-10.6) k/uL Hgb (13.0-17.5) gm/dL Hct (39.0-53.0) % MCV (80.0-100.0) fL MCH (25.0-35.0) pg MCHC (31.0-37.0) g/dL RDW (11.5-15.5) % Plt Count (150-450) k/uL Sodium (137-145) mmol/L Chloride (98-107) mmol/L BUN (9-20) mg/dL Creatinine (0.66-1.25) mg/dL Glucose (74-99) mg/dL POC Glucose (mg/dL) 146 H 149 H 153 H (70-110) mg/dL Calcium (8.4-10.2) mg/dL Phosphorus (2.5-4.5) mg/dL 06/19/23 06/19/23 06/19/23 Range/Units 07:52 07:52 11:36 WBC 11.8 H (3.8-10.6) k/uL Hgb 8.8 L (13.0-17.5) gm/dL Hct 33.5 L (39.0-53.0) % MCV 71.1 L (80.0-100.0) fL MCH 18.7 L (25.0-35.0) pg MCHC 26.3 L (31.0-37.0) g/dL RDW 19.7 H (11.5-15.5) % Plt Count 138 L (150-450) k/uL Sodium 146 H (137-145) mmol/L Chloride 114 H (98-107) mmol/L BUN 51 H (9-20) mg/dL Creatinine 1.43 H (0.66-1.25) mg/dL Glucose 159 H (74-99) mg/dL POC Glucose (mg/dL) 243 H (70-110) mg/dL Calcium 8.2 L (8.4-10.2) mg/dL Phosphorus 5.0 H (2.5-4.5) mg/dL Microbiology - Last 24 Hours (Table) 06/16/23 22:55 Blood Culture - Preliminary Blood 06/16/23 22:40 Blood Culture - Preliminary Blood 06/16/23 23:23 Urine Culture - Preliminary Urine,Clean Catch Group D Enterococcus Diabetes panel 06/18/23 06/19/23 Range/Units 07:44 07:52 Sodium 146 H (137-145) mmol/L Potassium 4.2 (3.5-5.1) mmol/L Chloride 114 H (98-107) mmol/L Carbon Dioxide 28 (22-30) mmol/L BUN 51 H (9-20) mg/dL Creatinine 1.43 H (0.66-1.25) mg/dL Glucose 159 H (74-99) mg/dL Hemoglobin A1c 5.8 (<=6.0) % Calcium 8.2 L (8.4-10.2) mg/dL Calcium panel 06/19/23 Range/Units 07:52 Calcium 8.2 L (8.4-10.2) mg/dL Phosphorus 5.0 H (2.5-4.5) mg/dL Pituitary panel 06/19/23 Range/Units 07:52 Sodium 146 H (137-145) mmol/L Potassium 4.2 (3.5-5.1) mmol/L Chloride 114 H (98-107) mmol/L Carbon Dioxide 28 (22-30) mmol/L BUN 51 H (9-20) mg/dL Creatinine 1.43 H (0.66-1.25) mg/dL Glucose 159 H (74-99) mg/dL Calcium 8.2 L (8.4-10.2) mg/dL Adrenal panel 06/19/23 Range/Units 07:52 Sodium 146 H (137-145) mmol/L Potassium 4.2 (3.5-5.1) mmol/L Chloride 114 H (98-107) mmol/L Carbon Dioxide 28 (22-30) mmol/L BUN 51 H (9-20) mg/dL Creatinine 1.43 H (0.66-1.25) mg/dL Glucose 159 H (74-99) mg/dL Calcium 8.2 L (8.4-10.2) mg/dL - Imaging CT scan - pelvis: image reviewed (Prostate size greater than 80 g, bladder distended and no hydronephrosis. Multiple bladder stones greater than 1 cm each) Assessment and Plan Assessment: 88-year-old male with history of urinary retention of 1.1 L . Based on his baseline symptoms, CT finding of enlarged prostate and multiple bladder stone most likely has ongoing bladder outlet obstruction at baseline. -Continue with Flomax, recommend adding Proscar -Can have a repeat trial of void prior to discharge if postvoid is less than 400 mL then Horton can stay out -Can follow-up as an outpatient for continued management of his BPH and bladder stones
[2023-06-19] MEDS: BENZONATATE 100 MG CAP PO PRN (13:53)
[2023-06-19 16:22] LABS: Glucose,Whole Blood 159 mg/dL (70-110)
[2023-06-19] MEDS: TAMSULOSIN 0.4 MG CAP.ER.24H PO SCH (16:30)
[2023-06-19 19:32] LABS: Glucose,Whole Blood 160 mg/dL (70-110)
[2023-06-20 06:03] LABS: Glucose,Whole Blood 110 mg/dL (70-110)
[2023-06-20] MEDS: INSULIN ASPART (NovoLOG) 100 UNIT/ML VIAL SQ SCH ×4 (06:26→20:51)
[2023-06-20] MEDS: IPRATROPIUM-ALBUTEROL 3 ML NEB INHALATION SCH ×4 (08:27→21:34)
[2023-06-20] MEDS: PIPERACILLIN-TAZOBACTAM 3.375 GM in SODIUM CHLORIDE 0.9% 100 ML IVPB SCH (09:19)
[2023-06-20] MEDS: guaiFENesin 600 MG TABLET.ER PO SCH ×2 (09:19→19:59)
[2023-06-20] MEDS: PANTOPRAZOLE 40 MG/10 ML VIAL IVP SCH ×2 (09:19→19:59)
[2023-06-20] MEDS: SODIUM FERRIC GLUCONAT-SUCROSE 125 MG in SODIUM CHLORIDE 0.9% 100 ML IVPB SCH (09:19)
[2023-06-20] MEDS: predniSONE 20 MG TAB PO SCH (09:20)
[2023-06-20] MEDS: DAPAGLIFLOZIN PROPANEDIOL 10 MG TABLET PO SCH (09:20)
[2023-06-20] MEDS: FINASTERIDE 5 MG TAB PO SCH (09:20)
[2023-06-20] MEDS: DOXYCYCLINE 100 MG CAP PO SCH (09:20)
[2023-06-20] MEDS: ATORVASTATIN 20 MG TAB PO SCH (09:20)
[2023-06-20] MEDS: METOPROLOL TARTRATE 25 MG TAB PO SCH ×2 (09:20→19:59)
[2023-06-20] MEDS: ASPIRIN 81 MG PO SCH (09:20)
[2023-06-20] MEDS: CHOLECALCIFEROL 25 MCG (1000 IU) TABLET PO SCH (09:23)
[2023-06-20 09:44] LABS: Anisocytosis Slight; HCT 32.7 % (39.0-53.0); HGB 8.2 gm/dL (13.0-17.5); Hypochromasia Marked; MCHC 24.9 g/dL (31.0-37.0); MCV 72.3 fL (80.0-100.0); Mean Platelet Volume 10.2; Microcytosis Marked; Platelet Count 123 k/uL (150-450); Poikilocytosis Slight; RBC 4.53 m/uL (4.30-5.90); RDW 19.7 % (11.5-15.5); WBC 12.2 k/uL (3.8-10.6)
[2023-06-20 10:57] LABS: African American GFR (CKD) 54 (>60 ml/min/1.73 sqM); Anion Gap 4 mmol/L; Blood Urea Nitrogen 47 mg/dL (9-20); Calcium 8.5 mg/dL (8.4-10.2); Carbon Dioxide 28 mmol/L (22-30); Chloride 114 mmol/L (98-107); Glucose 85 mg/dL (74-99); Non-African American GFR(CKD) 47 (>60 ml/min/1.73 sqM); Sodium 146 mmol/L (137-145)
[2023-06-20 11:45] LABS: Glucose,Whole Blood 163 mg/dL (70-110)
[2023-06-20] MEDS ORDERED: AMPICILLIN-SULBACTAM 3 GM in SODIUM CHLORIDE 0.9% 100 ML IVPB SCH (12:00)
[2023-06-20] MEDS: AMPICILLIN-SULBACTAM 3 GM in SODIUM CHLORIDE 0.9% 100 ML IVPB SCH ×2 (12:40→19:58)
[2023-06-20] MEDS: BENZONATATE 100 MG CAP PO PRN (13:14)
--- NOTE | 2023-06-20 14:25 | P.PN ---
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 Patient follows in the office with Dr. Amaya. We have been asked to see the patient in consultation for congestive heart failure. Patient examined at the bedside. Patient is somewhat lethargic at the time of examination. Patient presented to the hospital with a chief complaint of shortness of breath. He states he has been feeling short of breath over the past few months but has gotten worse over the past few days. He denies any chest pain or pressure. He denies any history of congestive heart failure. He does report lower extremity edema which he states he usually does not have. The patient was found to be in acute CHF and was started on IV Lasix. He does report his breathing has improved since coming to the hospital. He is currently on supplemental oxygen with oxygen saturations greater than 92%. Blood pressure 141/65. DIAGNOSTICS: - EKG reveals sinus mechanism with no signs of acute ischemia. Right bundle branch block - Chest xray mild cardiomegaly and pulmonary vascular congestion. Small to moderate left and small right pleural effusions with adjacent atelectasis and/or consolidation - Laboratory data: WBC 7.4. Hemoglobin 8.3. Platelet count 139. D-dimer 1.68. Sodium 147. BUN 43. Creatinine 0.95. Troponin 0.067. 0.063. 0.074. proBNP 10,700. - Current home cardiac medications include midodrine 5 mg 3 times a day, simvastatin 20 mg daily, and aspirin 81 mg daily - Most recent echocardiogram obtained in October 2022 revealed ejection fraction 45 to 50%, moderate concentric LVH, moderate aortic regurgitation, mild mitral vege tation, and trace to mild tricuspid regurgitation -Patient underwent Lexiscan stress test in February 2022 revealing small fixed inferior defect consistent with diaphragmatic attenuation artifact. No reversible ischemia noted. EF estimated at 60% June 18, 2023 Patient examined this morning at the bedside. Patient currently denies chest pain or pressure. He continues to report shortness of breath and states it does not feel much improved from yesterday. He remains on IV Lasix 40 mg every 12 hours. Creatinine today is up to 1.46. Echocardiogram completed revealing ejection fraction 35 to 40%, mild to moderate mitral regurgitation, moderate aortic insufficiency, and moderate tricuspid regurgitation. Patient's blood pressures have remained stable with a systolic in the 140s. June 19, 2023 Patient examined this morning at bedside. Patient currently denies chest pain or pressure. He denies shortness of breath. He does report a productive cough this morning. Patient's diuretics were discontinued yesterday as he developed CASIMIRO with a creatinine of 1.46. Blood pressure 126/58. 06/20 Patient denies having any chest pain. He states he is eating okay. He walked in the hallway yesterday and he had episode of dizziness. Blood pressure 136/60, heart rate 80, pulse ox 94% on 3 L. He still has a little lower extremity edema. PHYSICAL EXAM: VITAL SIGNS: Reviewed. GENERAL: Well-developed in no acute distress. HEENT: Head is normocephalic. Pupils are equal, round. Sclerae anicteric. Mucous membranes of the mouth are moist. Neck supple. No JVD or thyromegaly LUNGS: Respirations even and unlabored. Lungs with rhonchi throughout. HEART: Regular rate and rhythm. S1 and S2 heard. Diastolic murmur noted ABDOMEN: Soft. Nondistended. Nontender. EXTREMITIES: Normal range of motion. No clubbing or cyanosis. Peripheral pulses intact. Minimal bilateral lower extremity edema NEUROLOGIC: Awake and alert. Oriented x 3. ASSESSMENT: Shortness of breath Acute heart failure with reduced EF, 35 to 40% Elevated troponins, flat, likely secondary to above, no evidence of acute coronary syndrome Acute anemia, hemoglobin 8.3, previously 12.1 Acute kidney injury Valvular heart disease including moderate aortic regurgitation Hyperlipidemia History of orthostatic hypotension, maintained on midodrine outpatient History of COPD Nonsustained ventricular tachycardia PLAN: Evaluation of anemia per internal medicine, patient is on iron infusion Obtain orthostatic vital signs Continue to hold diuretics today. Repeat kidney function in a.m. If kidney function improves tomorrow, may resume small dose of oral Lasix Patient does have a history of orthostatic hypotension and is maintained on midodrine outpatient. He has previously been unable to tolerate cardiomyopathy regimen. However patient's blood pressures have been stable since admission. We have added metoprolol and off lisinopril. Further recommendations pending patient course Nurse practitioner note has been reviewed by physician. Signing provider agrees with the documented findings, assessment, and plan of care documented by WATER RESOURCE SPECIALIST as a scribe. Objective - Vital Signs Vital signs: Vital Signs Temp 98.6 F 06/20/23 08:00 Pulse 83 06/20/23 08:36 Resp 20 06/20/23 08:00 BP 136/60 06/20/23 08:00 Pulse Ox 96 06/20/23 08:28 FiO2 Intake & Output 06/19/23 06/20/23 06/20/23 18:59 06:59 18:59 Intake Total 604 500 118 Output Total 1225 1100 400 Balance -621 -600 -282 Weight 78.5 kg Intake: IV 10 Invasive Line 2 10 Oral 594 500 118 Output: Urine 1225 1100 400 Coude 850 Other: Voiding Method Diaper Diaper Diaper Indwelling Catheter Indwelling Catheter Indwelling Catheter # Bowel Movements 1 - Labs CBC & Chem 7: 06/20/23 08:55 06/20/23 08:55 Labs: Abnormal Lab Results - Last 24 Hours (Table) 06/19/23 06/19/23 06/20/23 Range/Units 16:21 19:28 08:55 WBC 12.2 H (3.8-10.6) k/uL Hgb 8.2 L (13.0-17.5) gm/dL Hct 32.7 L (39.0-53.0) % MCV 72.3 L (80.0-100.0) fL MCH 18.0 L (25.0-35.0) pg MCHC 24.9 L (31.0-37.0) g/dL RDW 19.7 H (11.5-15.5) % Plt Count 123 L (150-450) k/uL Sodium (137-145) mmol/L Chloride (98-107) mmol/L BUN (9-20) mg/dL Creatinine (0.66-1.25) mg/dL POC Glucose (mg/dL) 159 H 160 H (70-110) mg/dL 06/20/23 06/20/23 Range/Units 08:55 11:43 WBC (3.8-10.6) k/uL Hgb (13.0-17.5) gm/dL Hct (39.0-53.0) % MCV (80.0-100.0) fL MCH (25.0-35.0) pg MCHC (31.0-37.0) g/dL RDW (11.5-15.5) % Plt Count (150-450) k/uL Sodium 146 H (137-145) mmol/L Chloride 114 H (98-107) mmol/L BUN 47 H (9-20) mg/dL Creatinine 1.34 H (0.66-1.25) mg/dL POC Glucose (mg/dL) 163 H (70-110) mg/dL Microbiology - Last 24 Hours (Table) 06/16/23 22:55 Blood Culture - Preliminary Blood 06/16/23 22:40 Blood Culture - Preliminary Blood 06/16/23 23:23 Urine Culture - Final Urine,Clean Catch Enterococcus faecalis
--- NOTE | 2023-06-20 14:50 | P.PN ---
Subjective Progress Note Date: 06/20/23 (delayed charting seen at 0945) Patient is an 88-year-old male with GERD, Patel's esophagus, asthma, dyslipidemia, and iron deficiency anemia who presents to the emergency department with shortness of breath. In the ER he underwent extensive evaluation. Initial vital signs were remarkable for blood pressure 168/96 and O2 sat 99% on 4 L nasal cannula. Initial laboratory analysis was remarkable for hemoglobin 8.3 (last known hemoglobin 12.1 11/15/2022), platelets 139, D-dimer 1.68, sodium 147, chloride 118, BUN 43, troponin 0.067, and BNP 10,700. Urinalysis was consistent with possible urinary tract infection and white blood cells greater than 182 with large leukocyte esterase. Influenza A/B/RSV/COVID- 19 testing was negative. Initial chest x-ray demonstrated mild cardiomegaly with pulmonary vascular congestion and possible pleural effusions. This was followed up by a CTA of the chest which demonstrated small right and minimal left pleural effusions with no persistent filling defects to suggest acute pulmonary embolism. Initial EKG demonstrated sinus rhythm with possible PVCs, right bundle branch block. Patient was admitted for acute exacerbation of asthma and acute exacerbation of congestive heart failure. He was started on Lasix. Echocardiogram was ordered and cardiology was consulted. Echocardiogram revealed ejection fraction 35 to 40%, moderate aortic insufficiency, moderate tricuspid regurgitation. Patient was continued on diuresis. He had worsening of his renal function. Bladder scan was performed which showed 1000 cc. Horton catheter was placed. Patient was started on Flomax and urology was consulted. Patient seen and examined at bedside. He feels his breathing is slightly worse today than yesterday. He denies any nausea or vomiting. He is feeling somewhat weak. No other complaints currently. Vital signs reviewed General: Nontoxic, no distress, appears at stated age Cardiovascular: S1S2 reg, no murmur Lungs: Coarse breath sounds bilateral, no rhonchi, no rales, no accessory muscle use Abdominal: Soft, nontender to palpation, no guarding, pain to palpation over the left groin with bulbous protrusion Ext: No gross muscle atrophy, no edema b/l lower extremities, no contractures Neuro: CN II-XI grossly intact, no focal neuro deficits Psych: Alert, oriented, appropriate affect Assessment/Plan: Acute systolic CHF with EF 35-40% Acute hypoxic respiratory failure Elevated troponin, type II non-STEMI secondary to acute exacerbation of CHF Dyslipidemia -Cardiology note reviewed: Hold diuretics today. Check orthostatic vital signs. - resume lasix 40 mg oral BID -Aspirin 81 mg daily, Lipitor 20 mg daily -Farxiga 10 mg daily - Metoprolol 25 mg twice daily -Conitnue to hold lisinopril, BMP in AM Urinary retention with prostamegaly Left inguinal hernia, no bowel loops contained -Horton was inserted on 06/19/2023 with return of 1050 cc of urine -Flomax 0.4 mg daily -Urology note reviewed patient could not have a voiding trial prior to discharge and should have outpatient follow-up and Proscar initiated. Acute Exacerbation of Asthma -Continue with DuoNebs 4 times daily scheduled and 4 times daily as needed, Prednisone 40 mg daily, Mucinex 1200 mg p.o. twice daily, completed Doxy X 5 days Enterococcus UTI - Unasyn 3 gram IVPB TID D # 3/5 of appropriate ABX - Blood cultures negative to date Iron Deficiency Anemia Patel's Esophagus -Patient has a history of Patel's esophagus with last EGD completed 4 years ago. He does need to have a repeat one completed in the outpatient setting as he was supposed to have this done 2 to 3 years after his last procedure -Patient will benefit from IV iron x 3 doses given his systolic congestive heart failure D # 3- treatment complete -Continue with Protonix 40 mg IV push twice daily with plan to convert to oral on discharge. Imaging: None new Data Review: Labs reviewed from today include CBC and basic metabolic profile which are remarkable for white blood cell count 12.2, hemoglobin 8.2, platelets 123, sodium 146, BUN 47, creatinine 1.34. DVT prophylaxis: SCDs Anticipated discharge date: 24-[address]: Pending Clinical Course This dictation was prepared using N-1-1 voice recognition software. Though every attempt is made to correct errors during dictation some may still exist. Objective - Vital Signs Vital signs: Vital Signs Temp 98.6 F 06/20/23 08:00 Pulse 77 06/20/23 12:12 Resp 20 06/20/23 08:00 BP 136/60 06/20/23 08:00 Pulse Ox 96 06/20/23 08:28 FiO2 Intake & Output 06/19/23 06/20/23 06/20/23 18:59 06:59 18:59 Intake Total 604 500 118 Output Total 1225 1100 400 Balance -621 -600 -282 Weight 78.5 kg Intake: IV 10 Invasive Line 2 10 Oral 594 500 118 Output: Urine 1225 1100 400 Coude 850 Other: Voiding Method Diaper Diaper Diaper Indwelling Catheter Indwelling Catheter Indwelling Catheter # Bowel Movements 1 - Labs CBC & Chem 7: 06/20/23 08:55 06/20/23 08:55 Labs: Abnormal Lab Results - Last 24 Hours (Table) 06/19/23 06/19/23 06/20/23 Range/Units 16:21 19:28 08:55 WBC 12.2 H (3.8-10.6) k/uL Hgb 8.2 L (13.0-17.5) gm/dL Hct 32.7 L (39.0-53.0) % MCV 72.3 L (80.0-100.0) fL MCH 18.0 L (25.0-35.0) pg MCHC 24.9 L (31.0-37.0) g/dL RDW 19.7 H (11.5-15.5) % Plt Count 123 L (150-450) k/uL Sodium (137-145) mmol/L Chloride (98-107) mmol/L BUN (9-20) mg/dL Creatinine (0.66-1.25) mg/dL POC Glucose (mg/dL) 159 H 160 H (70-110) mg/dL 06/20/23 06/20/23 Range/Units 08:55 11:43 WBC (3.8-10.6) k/uL Hgb (13.0-17.5) gm/dL Hct (39.0-53.0) % MCV (80.0-100.0) fL MCH (25.0-35.0) pg MCHC (31.0-37.0) g/dL RDW (11.5-15.5) % Plt Count (150-450) k/uL Sodium 146 H (137-145) mmol/L Chloride 114 H (98-107) mmol/L BUN 47 H (9-20) mg/dL Creatinine 1.34 H (0.66-1.25) mg/dL POC Glucose (mg/dL) 163 H (70-110) mg/dL Microbiology - Last 24 Hours (Table) 06/16/23 22:55 Blood Culture - Preliminary Blood 06/16/23 22:40 Blood Culture - Preliminary Blood 06/16/23 23:23 Urine Culture - Final Urine,Clean Catch Enterococcus faecalis
[2023-06-20 16:32] LABS: Glucose,Whole Blood 262 mg/dL (70-110)
[2023-06-20] MEDS: TAMSULOSIN 0.4 MG CAP.ER.24H PO SCH (18:02)
[2023-06-20] MEDS: FUROSEMIDE 40 MG TAB PO SCH (18:02)
[2023-06-20 20:17] LABS: Glucose,Whole Blood 257 mg/dL (70-110)
[2023-06-21 05:51] LABS: Glucose,Whole Blood 87 mg/dL (70-110)
[2023-06-21] MEDS: INSULIN ASPART (NovoLOG) 100 UNIT/ML VIAL SQ SCH ×4 (05:51→21:41)
[2023-06-21] MEDS: AMPICILLIN-SULBACTAM 3 GM in SODIUM CHLORIDE 0.9% 100 ML IVPB SCH ×3 (05:51→21:41)
[2023-06-21] MEDS: IPRATROPIUM-ALBUTEROL 3 ML NEB INHALATION SCH ×4 (07:41→22:03)
[2023-06-21 07:59] LABS: Anisocytosis Slight; HCT 33.1 % (39.0-53.0); HGB 8.8 gm/dL (13.0-17.5); Hypochromasia Marked; MCH 18.9 pg (25.0-35.0); MCHC 26.6 g/dL (31.0-37.0); Mean Platelet Volume 10.3; Microcytosis Marked; Platelet Count 110 k/uL (150-450); Poikilocytosis Slight; RBC 4.66 m/uL (4.30-5.90); WBC 9.3 k/uL (3.8-10.6)
[2023-06-21 08:19] LABS: African American GFR (CKD) 59 (>60 ml/min/1.73 sqM); Anion Gap 1 mmol/L; Blood Urea Nitrogen 43 mg/dL (9-20); Calcium 8.1 mg/dL (8.4-10.2); Carbon Dioxide 31 mmol/L (22-30); Chloride 112 mmol/L (98-107); Glucose 80 mg/dL (74-99); Non-African American GFR(CKD) 51 (>60 ml/min/1.73 sqM); Potassium 3.9 mmol/L (3.5-5.1); Sodium 144 mmol/L (137-145)
[2023-06-21] MEDS: ASPIRIN 81 MG PO SCH (09:13)
[2023-06-21] MEDS: CHOLECALCIFEROL 25 MCG (1000 IU) TABLET PO SCH (09:13)
[2023-06-21] MEDS: guaiFENesin 600 MG TABLET.ER PO SCH ×2 (09:13→21:40)
[2023-06-21] MEDS: FINASTERIDE 5 MG TAB PO SCH (09:13)
[2023-06-21] MEDS: ATORVASTATIN 20 MG TAB PO SCH (09:14)
[2023-06-21] MEDS: predniSONE 20 MG TAB PO SCH (09:14)
[2023-06-21] MEDS: DAPAGLIFLOZIN PROPANEDIOL 10 MG TABLET PO SCH (09:14)
[2023-06-21] MEDS: SODIUM FERRIC GLUCONAT-SUCROSE 125 MG in SODIUM CHLORIDE 0.9% 100 ML IVPB SCH (09:14)
[2023-06-21] MEDS: FERROUS SULFATE 325 MG TAB PO SCH (09:14)
[2023-06-21] MEDS: PANTOPRAZOLE 40 MG/10 ML VIAL IVP SCH ×2 (09:14→21:40)
[2023-06-21] MEDS: FUROSEMIDE 40 MG TAB PO SCH ×2 (09:14→17:12)
[2023-06-21] MEDS: METOPROLOL TARTRATE 25 MG TAB PO SCH ×2 (09:14→21:40)
[2023-06-21 11:41] LABS: Glucose,Whole Blood 146 mg/dL (70-110)
--- NOTE | 2023-06-21 16:05 | P.PN ---
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 Patient follows in the office with Dr. Amaya. We have been asked to see the patient in consultation for congestive heart failure. Patient examined at the bedside. Patient is somewhat lethargic at the time of examination. Patient presented to the hospital with a chief complaint of shortness of breath. He states he has been feeling short of breath over the past few months but has gotten worse over the past few days. He denies any chest pain or pressure. He denies any history of congestive heart failure. He does report lower extremity edema which he states he usually does not have. The patient was found to be in acute CHF and was started on IV Lasix. He does report his breathing has improved since coming to the hospital. He is currently on supplemental oxygen with oxygen saturations greater than 92%. Blood pressure 141/65. DIAGNOSTICS: - EKG reveals sinus mechanism with no signs of acute ischemia. Right bundle branch block - Chest xray mild cardiomegaly and pulmonary vascular congestion. Small to moderate left and small right pleural effusions with adjacent atelectasis and/or consolidation - Laboratory data: WBC 7.4. Hemoglobin 8.3. Platelet count 139. D-dimer 1.68. Sodium 147. BUN 43. Creatinine 0.95. Troponin 0.067. 0.063. 0.074. proBNP 10,700. - Current home cardiac medications include midodrine 5 mg 3 times a day, simvastatin 20 mg daily, and aspirin 81 mg daily - Most recent echocardiogram obtained in October 2022 revealed ejection fraction 45 to 50%, moderate concentric LVH, moderate aortic regurgitation, mild mitral vege tation, and trace to mild tricuspid regurgitation -Patient underwent Lexiscan stress test in February 2022 revealing small fixed inferior defect consistent with diaphragmatic attenuation artifact. No reversible ischemia noted. EF estimated at 60% June 18, 2023 Patient examined this morning at the bedside. Patient currently denies chest pain or pressure. He continues to report shortness of breath and states it does not feel much improved from yesterday. He remains on IV Lasix 40 mg every 12 hours. Creatinine today is up to 1.46. Echocardiogram completed revealing ejection fraction 35 to 40%, mild to moderate mitral regurgitation, moderate aortic insufficiency, and moderate tricuspid regurgitation. Patient's blood pressures have remained stable with a systolic in the 140s. June 19, 2023 Patient examined this morning at bedside. Patient currently denies chest pain or pressure. He denies shortness of breath. He does report a productive cough this morning. Patient's diuretics were discontinued yesterday as he developed CASIMIRO with a creatinine of 1.46. Blood pressure 126/58. 06/20 Patient denies having any chest pain. He states he is eating okay. He walked in the hallway yesterday and he had episode of dizziness. Blood pressure 136/60, heart rate 80, pulse ox 94% on 3 L. He still has a little lower extremity edema. 06/21 Patient states that his breathing is about the same. He was able to walk in the hallway without any difficulty or dizziness today. Orthostatics will be done today. Blood pressure 114/62, heart rate in the 60s to 80s. Repeat blood work reveals hemoglobin of 8.8, potassium 3.9, BUN 43 creatinine 1.25. PHYSICAL EXAM: VITAL SIGNS: Reviewed. GENERAL: Well-developed in no acute distress. HEENT: Head is normocephalic. Pupils are equal, round. Sclerae anicteric. Mucous membranes of the mouth are moist. Neck supple. No JVD or thyromegaly LUNGS: Respirations even and unlabored. Lungs with rhonchi throughout. HEART: Regular rate and rhythm. S1 and S2 heard. Diastolic murmur noted ABDOMEN: Soft. Nondistended. Nontender. EXTREMITIES: Normal range of motion. No clubbing or cyanosis. Peripheral pulses intact. Minimal bilateral lower extremity edema NEUROLOGIC: Awake and alert. Oriented x 3. ASSESSMENT: Shortness of breath Acute heart failure with reduced EF, 35 to 40% Elevated troponins, flat, likely secondary to above, no evidence of acute coronary syndrome Acute anemia, hemoglobin 8.3, previously 12.1 Acute kidney injury Valvular heart disease including moderate aortic regurgitation Hyperlipidemia History of orthostatic hypotension, maintained on midodrine outpatient History of COPD Nonsustained ventricular tachycardia PLAN: Evaluation of anemia per internal medicine, patient is on iron infusion Obtain orthostatic vital signs Patient is on oral Lasix 40 mg twice daily Patient does have a history of orthostatic hypotension and is maintained on midodrine outpatient. He has previously been unable to tolerate cardiomyopathy regimen. However patient's blood pressures have been stable since admission. We have added metoprolol and off lisinopril. Further recommendations pending patient course Nurse practitioner note has been reviewed by physician. Signing provider agrees with the documented findings, assessment, and plan of care documented by REEFER ENGINEER as a scribe. Objective - Vital Signs Vital signs: Vital Signs Temp 97.6 F 06/21/23 08:00 Pulse 80 06/21/23 11:31 Resp 18 06/21/23 08:00 BP 129/54 06/21/23 08:00 Pulse Ox 99 06/21/23 08:00 FiO2 Intake & Output 06/20/23 06/21/23 06/21/23 18:59 06:59 18:59 Intake Total 356 358 Output Total 400 2400 325 Balance -44 -2400 33 Weight 76.2 kg Intake: Oral 356 358 Output: Urine 400 2400 325 Other: Voiding Method Diaper Indwelling Catheter Indwelling Catheter Indwelling Catheter # Bowel Movements 1 - Labs CBC & Chem 7: 06/21/23 07:44 06/21/23 07:44 Labs: Abnormal Lab Results - Last 24 Hours (Table) 06/20/23 06/20/23 06/21/23 Range/Units 16:30 20:15 07:44 Hgb 8.8 L (13.0-17.5) gm/dL Hct 33.1 L (39.0-53.0) % MCV 71.0 L (80.0-100.0) fL MCH 18.9 L (25.0-35.0) pg MCHC 26.6 L (31.0-37.0) g/dL RDW 20.0 H (11.5-15.5) % Plt Count 110 L (150-450) k/uL Chloride (98-107) mmol/L Carbon Dioxide (22-30) mmol/L BUN (9-20) mg/dL POC Glucose (mg/dL) 262 H 257 H (70-110) mg/dL Calcium (8.4-10.2) mg/dL 06/21/23 06/21/23 Range/Units 07:44 11:40 Hgb (13.0-17.5) gm/dL Hct (39.0-53.0) % MCV (80.0-100.0) fL MCH (25.0-35.0) pg MCHC (31.0-37.0) g/dL RDW (11.5-15.5) % Plt Count (150-450) k/uL Chloride 112 H (98-107) mmol/L Carbon Dioxide 31 H (22-30) mmol/L BUN 43 H (9-20) mg/dL POC Glucose (mg/dL) 146 H (70-110) mg/dL Calcium 8.1 L (8.4-10.2) mg/dL
--- NOTE | 2023-06-21 16:36 | P.PN ---
Subjective Progress Note Date: 06/21/23 (delayed charting seen at 1030) Patient is an 88-year-old male with GERD, Patel's esophagus, asthma, dyslipidemia, and iron deficiency anemia who presents to the emergency department with shortness of breath. In the ER he underwent extensive evaluation. Initial vital signs were remarkable for blood pressure 168/96 and O2 sat 99% on 4 L nasal cannula. Initial laboratory analysis was remarkable for hemoglobin 8.3 (last known hemoglobin 12.1 11/15/2022), platelets 139, D-dimer 1.68, sodium 147, chloride 118, BUN 43, troponin 0.067, and BNP 10,700. Urinalysis was consistent with possible urinary tract infection and white blood cells greater than 182 with large leukocyte esterase. Influenza A/B/RSV/COVID- 19 testing was negative. Initial chest x-ray demonstrated mild cardiomegaly with pulmonary vascular congestion and possible pleural effusions. This was followed up by a CTA of the chest which demonstrated small right and minimal left pleural effusions with no persistent filling defects to suggest acute pulmonary embolism. Initial EKG demonstrated sinus rhythm with possible PVCs, right bundle branch block. Patient was admitted for acute exacerbation of asthma and acute exacerbation of congestive heart failure. He was started on Lasix. Echocardiogram was ordered and cardiology was consulted. Echocardiogram revealed ejection fraction 35 to 40%, moderate aortic insufficiency, moderate tricuspid regurgitation. Patient was continued on diuresis. He had worsening of his renal function. Bladder scan was performed which showed 1000 cc. Horton catheter was placed. Patient was started on Flomax and urology was consulted. Patient seen and examined at bedside. He feels his breathing is slightly worse today than yesterday. He denies any nausea or vomiting. He is feeling somewhat weak. No other complaints currently. Vital signs reviewed General: Nontoxic, no distress, appears at stated age Cardiovascular: S1S2 reg, no murmur Lungs: Coarse breath sounds bilateral, no rhonchi, no rales, no accessory muscle use Abdominal: Soft, nontender to palpation, no guarding, pain to palpation over the left groin with bulbous protrusion Ext: No gross muscle atrophy, no edema b/l lower extremities, no contractures Neuro: CN II-XI grossly intact, no focal neuro deficits Psych: Alert, oriented, appropriate affect Assessment/Plan: Acute systolic CHF with EF 35-40% Acute hypoxic respiratory failure Elevated troponin, type II non-STEMI secondary to acute exacerbation of CHF Dyslipidemia -Cardiology note reviewed: No new recommendations - lasix 40 mg oral BID -Aspirin 81 mg daily, Lipitor 20 mg daily -Farxiga 10 mg daily - Metoprolol 25 mg twice daily -Start losartan 12.5 mg BID Urinary retention with prostamegaly Left inguinal hernia, no bowel loops contained - voifing trial today with PVR -Horton was inserted on 06/19/2023 with return of 1050 cc of urine -Flomax 0.4 mg daily -Urology note reviewed patient could not have a voiding trial prior to discharge and should have outpatient follow-up and Proscar initiated. Acute Exacerbation of Asthma -Continue with DuoNebs 4 times daily scheduled and 4 times daily as needed, Prednisone 40 mg daily, Mucinex 1200 mg p.o. twice daily, completed Doxy X 5 days Enterococcus UTI - Unasyn 3 gram IVPB TID D # 4/5 of appropriate ABX - Blood cultures negative to date Iron Deficiency Anemia Patel's Esophagus -Patient has a history of Patel's esophagus with last EGD completed 4 years ago. He does need to have a repeat one completed in the outpatient setting as he was supposed to have this done 2 to 3 years after his last procedure -Patient will benefit from IV iron x 3 doses given his systolic congestive heart failure D # 3- treatment complete -Continue with Protonix 40 mg IV push twice daily with plan to convert to oral on discharge. Imaging: None new Data Review: Labs reviewed from today include CBC and basic metabolic profile remarkable for hemoglobin 8.8, platelets 110, BUN 43, creatinine 1.25 DVT prophylaxis: SCDs Anticipated discharge date: 24-[address]: Home with home health This dictation was prepared using [employer] voice recognition software. Though every attempt is made to correct errors during dictation some may still exist. Objective - Vital Signs Vital signs: Vital Signs Temp 97.6 F 06/21/23 08:00 Pulse 80 06/21/23 15:41 Resp 18 06/21/23 14:00 BP 114/62 06/21/23 12:00 Pulse Ox 98 06/21/23 12:00 FiO2 Intake & Output 06/20/23 06/21/23 06/21/23 18:59 06:59 18:59 Intake Total 356 358 Output Total 400 2400 325 Balance -44 -2400 33 Weight 76.2 kg Intake: Oral 356 358 Output: Urine 400 2400 325 Other: Voiding Method Diaper Indwelling Catheter Indwelling Catheter Indwelling Catheter # Bowel Movements 1 - Labs CBC & Chem 7: 06/21/23 07:44 06/21/23 07:44 Labs: Abnormal Lab Results - Last 24 Hours (Table) 06/20/23 06/21/23 06/21/23 Range/Units 20:15 07:44 07:44 Hgb 8.8 L (13.0-17.5) gm/dL Hct 33.1 L (39.0-53.0) % MCV 71.0 L (80.0-100.0) fL MCH 18.9 L (25.0-35.0) pg MCHC 26.6 L (31.0-37.0) g/dL RDW 20.0 H (11.5-15.5) % Plt Count 110 L (150-450) k/uL Chloride 112 H (98-107) mmol/L Carbon Dioxide 31 H (22-30) mmol/L BUN 43 H (9-20) mg/dL POC Glucose (mg/dL) 257 H (70-110) mg/dL Calcium 8.1 L (8.4-10.2) mg/dL 06/21/23 Range/Units 11:40 Hgb (13.0-17.5) gm/dL Hct (39.0-53.0) % MCV (80.0-100.0) fL MCH (25.0-35.0) pg MCHC (31.0-37.0) g/dL RDW (11.5-15.5) % Plt Count (150-450) k/uL Chloride (98-107) mmol/L Carbon Dioxide (22-30) mmol/L BUN (9-20) mg/dL POC Glucose (mg/dL) 146 H (70-110) mg/dL Calcium (8.4-10.2) mg/dL
[2023-06-21 16:39] LABS: Glucose,Whole Blood 207 mg/dL (70-110)
[2023-06-21] MEDS: TAMSULOSIN 0.4 MG CAP.ER.24H PO SCH (17:12)
[2023-06-21 20:05] LABS: Glucose,Whole Blood 198 mg/dL (70-110)
[2023-06-21] MEDS: LOSARTAN 25 MG TAB PO SCH (21:39)
[2023-06-22] MEDS: AMPICILLIN-SULBACTAM 3 GM in SODIUM CHLORIDE 0.9% 100 ML IVPB SCH ×3 (05:25→21:12)
[2023-06-22 05:52] LABS: Glucose,Whole Blood 96 mg/dL (70-110)
[2023-06-22] MEDS: INSULIN ASPART (NovoLOG) 100 UNIT/ML VIAL SQ SCH ×4 (05:53→22:06)
[2023-06-22] MEDS: IPRATROPIUM-ALBUTEROL 3 ML NEB INHALATION SCH ×4 (08:36→21:01)
[2023-06-22 08:48] LABS: Anisocytosis Moderate; HCT 37.3 % (39.0-53.0); HGB 10.2 gm/dL (13.0-17.5); Hypochromasia Marked; MCH 19.4 pg (25.0-35.0); MCHC 27.3 g/dL (31.0-37.0); MCV 71.1 fL (80.0-100.0); Mean Platelet Volume 7.8; Microcytosis Marked; Platelet Count 107 k/uL (150-450); Poikilocytosis Slight; RBC 5.25 m/uL (4.30-5.90); RDW 20.7 % (11.5-15.5); WBC 8.9 k/uL (3.8-10.6)
[2023-06-22 09:01] LABS: African American GFR (CKD) 65 (>60 ml/min/1.73 sqM); Anion Gap 7 mmol/L; Blood Urea Nitrogen 40 mg/dL (9-20); Calcium 8.2 mg/dL (8.4-10.2); Carbon Dioxide 26 mmol/L (22-30); Chloride 110 mmol/L (98-107); Glucose 130 mg/dL (74-99); Magnesium 2.2 mg/dL (1.6-2.3); Non-African American GFR(CKD) 56 (>60 ml/min/1.73 sqM); Potassium 4.1 mmol/L (3.5-5.1); Sodium 143 mmol/L (137-145)
[2023-06-22] MEDS: SODIUM FERRIC GLUCONAT-SUCROSE 125 MG in SODIUM CHLORIDE 0.9% 100 ML IVPB SCH (10:03)
[2023-06-22] MEDS: guaiFENesin 600 MG TABLET.ER PO SCH ×2 (10:05→22:06)
[2023-06-22] MEDS: ATORVASTATIN 20 MG TAB PO SCH (10:05)
[2023-06-22] MEDS: ASPIRIN 81 MG PO SCH (10:05)
[2023-06-22] MEDS: METOPROLOL TARTRATE 25 MG TAB PO SCH ×2 (10:05→22:06)
[2023-06-22] MEDS: DAPAGLIFLOZIN PROPANEDIOL 10 MG TABLET PO SCH (10:05)
[2023-06-22] MEDS: LOSARTAN 25 MG TAB PO SCH ×2 (10:05→22:06)
[2023-06-22] MEDS: PANTOPRAZOLE 40 MG/10 ML VIAL IVP SCH ×2 (10:05→22:05)
[2023-06-22] MEDS: CHOLECALCIFEROL 25 MCG (1000 IU) TABLET PO SCH (10:06)
[2023-06-22] MEDS: predniSONE 20 MG TAB PO SCH (10:06)
[2023-06-22] MEDS: FUROSEMIDE 40 MG TAB PO SCH ×2 (10:06→17:26)
[2023-06-22] MEDS: FINASTERIDE 5 MG TAB PO SCH (10:06)
[2023-06-22] MEDS ORDERED: FUROSEMIDE 10 MG/ML 4 ML VIAL IV STA (10:28)
--- NOTE | 2023-06-22 11:51 | P.PN ---
Subjective Progress Note Date: 06/22/23 HISTORY OF PRESENT ILLNESS: This is a 88-year-old male with a past medical history significant for card iomyopathy with an ejection fraction of 45%, moderate aortic regurgitation, hyperlipidemia, orthostatic hypotension, and COPD. Patient follows in the office with Dr. Amaya. We have been asked to see the patient in consultation for congestive heart failure. Patient examined at the bedside. Patient is somewhat lethargic at the time of examination. Patient presented to the hospital with a chief complaint of shortness of breath. He states he has been feeling short of breath over the past few months but has gotten worse over the past few days. He denies any chest pain or pressure. He denies any history of congestive heart failure. He does report lower extremity edema which he states he usually does not have. The patient was found to be in acute CHF and was started on IV Lasix. He does report his breathing has improved since coming to the hospital. He is currently on supplemental oxygen with oxygen saturations greater than 92%. Blood pressure 141/65. DIAGNOSTICS: - EKG reveals sinus mechanism with no signs of acute ischemia. Right bundle branch block - Chest xray mild cardiomegaly and pulmonary vascular congestion. Small to moderate left and small right pleural effusions with adjacent atelectasis and/or consolidation - Laboratory data: WBC 7.4. Hemoglobin 8.3. Platelet count 139. D-dimer 1.68. Sodium 147. BUN 43. Creatinine 0.95. Troponin 0.067. 0.063. 0.074. proBNP 10,700. - Current home cardiac medications include midodrine 5 mg 3 times a day, simvastatin 20 mg daily, and aspirin 81 mg daily - Most recent echocardiogram obtained in October 2022 revealed ejection fraction 45 to 50%, moderate concentric LVH, moderate aortic regurgitation, mild mitral vege tation, and trace to mild tricuspid regurgitation -Patient underwent Lexiscan stress test in February 2022 revealing small fixed inferior defect consistent with diaphragmatic attenuation artifact. No reversible ischemia noted. EF estimated at 60% June 18, 2023 Patient examined this morning at the bedside. Patient currently denies chest pain or pressure. He continues to report shortness of breath and states it does not feel much improved from yesterday. He remains on IV Lasix 40 mg every 12 hours. Creatinine today is up to 1.46. Echocardiogram completed revealing ejection fraction 35 to 40%, mild to moderate mitral regurgitation, moderate aortic insufficiency, and moderate tricuspid regurgitation. Patient's blood pressures have remained stable with a systolic in the 140s. June 19, 2023 Patient examined this morning at bedside. Patient currently denies chest pain or pressure. He denies shortness of breath. He does report a productive cough this morning. Patient's diuretics were discontinued yesterday as he developed CASIMIRO with a creatinine of 1.46. Blood pressure 126/58. 06/20 Patient denies having any chest pain. He states he is eating okay. He walked in the hallway yesterday and he had episode of dizziness. Blood pressure 136/60, heart rate 80, pulse ox 94% on 3 L. He still has a little lower extremity edema. 06/21 Patient states that his breathing is about the same. He was able to walk in the hallway without any difficulty or dizziness today. Orthostatics will be done today. Blood pressure 114/62, heart rate in the 60s to 80s. Repeat blood work reveals hemoglobin of 8.8, potassium 3.9, BUN 43 creatinine 1.25. 06/22 Patient denies having any chest pain. He still has edema not back to his baseline. Patient had has been transition to oral Lasix 40 mg twice daily. He has a negative fluid balance yesterday of 2400. It appears he has had a weight loss of 1-1/2 kg since admission. Will plan on 1 dose of IV today. Blood pressure 149/65, heart rate is in the 70s. Repeat blood work reveals hemoglobin 10.2, potassium 4.1, BUN 40 creatinine 1.12. PHYSICAL EXAM: VITAL SIGNS: Reviewed. GENERAL: Well-developed in no acute distress. HEENT: Head is normocephalic. Pupils are equal, round. Sclerae anicteric. Mucous membranes of the mouth are moist. Neck supple. No JVD or thyromegaly LUNGS: Respirations even and unlabored. Lungs with rhonchi throughout. HEART: Regular rate and rhythm. S1 and S2 heard. Diastolic murmur noted ABDOMEN: Soft. Nondistended. Nontender. EXTREMITIES: Show No clubbing or cyanosis. Peripheral pulses intact. Minimal bilateral lower extremity edema NEUROLOGIC: Awake and alert. Oriented x 3. ASSESSMENT: Shortness of breath Acute heart failure with reduced EF, 35 to 40% Elevated troponins, flat, likely secondary to above, no evidence of acute coronary syndrome Acute anemia, hemoglobin 8.3, previously 12.1 Acute kidney injury Valvular heart disease including moderate aortic regurgitation Hyperlipidemia History of orthostatic hypotension, maintained on midodrine outpatient History of COPD Nonsustained ventricular tachycardia PLAN: Patient is on oral Lasix 40 mg twice daily and 1 dose of IV Lasix today Patient does have a history of orthostatic hypotension and is maintained on midodrine outpatient. He has previously been unable to tolerate cardiomyopathy regimen. However patient's blood pressures have been stable since admission. We have added metoprolol and off lisinopril. Further recommendations pending patient course Nurse practitioner note has been reviewed by physician. Signing provider agrees with the documented findings, assessment, and plan of care documented by TROLLEY WORKER as a scribe. Objective - Vital Signs Vital signs: Vital Signs Temp 97.5 F L 06/22/23 08:00 Pulse 77 06/22/23 08:46 Resp 18 06/22/23 08:46 BP 149/65 06/22/23 08:00 Pulse Ox 98 06/22/23 08:36 FiO2 Intake & Output 06/21/23 06/22/23 06/22/23 18:59 06:59 18:59 Intake Total 476 10 118 Output Total 325 400 Balance 151 -390 118 Weight 75.8 kg Intake: IV 10 Invasive Line 3 10 Oral 476 118 Output: Urine 325 400 Other: Voiding Method Indwelling Catheter Indwelling Catheter # Voids 1 - Labs CBC & Chem 7: 06/22/23 08:03 06/22/23 08:03 Labs: Abnormal Lab Results - Last 24 Hours (Table) 06/21/23 06/21/23 06/21/23 Range/Units 11:40 16:38 20:03 Hgb (13.0-17.5) gm/dL Hct (39.0-53.0) % MCV (80.0-100.0) fL MCH (25.0-35.0) pg MCHC (31.0-37.0) g/dL RDW (11.5-15.5) % Plt Count (150-450) k/uL Chloride (98-107) mmol/L BUN (9-20) mg/dL Glucose (74-99) mg/dL POC Glucose (mg/dL) 146 H 207 H 198 H (70-110) mg/dL Calcium (8.4-10.2) mg/dL 06/22/23 06/22/23 Range/Units 08:03 08:03 Hgb 10.2 L (13.0-17.5) gm/dL Hct 37.3 L (39.0-53.0) % MCV 71.1 L (80.0-100.0) fL MCH 19.4 L (25.0-35.0) pg MCHC 27.3 L (31.0-37.0) g/dL RDW 20.7 H (11.5-15.5) % Plt Count 107 L (150-450) k/uL Chloride 110 H (98-107) mmol/L BUN 40 H (9-20) mg/dL Glucose 130 H (74-99) mg/dL POC Glucose (mg/dL) (70-110) mg/dL Calcium 8.2 L (8.4-10.2) mg/dL Microbiology - Last 24 Hours (Table) 06/16/23 22:55 Blood Culture - Final Blood 06/16/23 22:40 Blood Culture - Final Blood
[2023-06-22 13:51] VITALS: BMI 24.0
--- NOTE | 2023-06-22 14:33 | P.PN ---
Subjective Progress Note Date: 06/22/23 (delayed charting seen at 0945) Patient is an 88-year-old male with GERD, Patel's esophagus, asthma, dyslipidemia, and iron deficiency anemia who presents to the emergency department with shortness of breath. In the ER he underwent extensive evaluation. Initial vital signs were remarkable for blood pressure 168/96 and O2 sat 99% on 4 L nasal cannula. Initial laboratory analysis was remarkable for hemoglobin 8.3 (last known hemoglobin 12.1 11/15/2022), platelets 139, D-dimer 1.68, sodium 147, chloride 118, BUN 43, troponin 0.067, and BNP 10,700. Urinalysis was consistent with possible urinary tract infection and white blood cells greater than 182 with large leukocyte esterase. Influenza A/B/RSV/COVID- 19 testing was negative. Initial chest x-ray demonstrated mild cardiomegaly with pulmonary vascular congestion and possible pleural effusions. This was followed up by a CTA of the chest which demonstrated small right and minimal left pleural effusions with no persistent filling defects to suggest acute pulmonary embolism. Initial EKG demonstrated sinus rhythm with possible PVCs, right bundle branch block. Patient was admitted for acute exacerbation of asthma and acute exacerbation of congestive heart failure. He was started on Lasix. Echocardiogram was ordered and cardiology was consulted. Echocardiogram revealed ejection fraction 35 to 40%, moderate aortic insufficiency, moderate tricuspid regurgitation. Patient was continued on diuresis. He had worsening of his renal function. Bladder scan was performed which showed 1000 cc. Horton catheter was placed. Patient was started on Flomax and urology was consulted. He had a voiding trial on 06/21. Patient Seen and examined at bedside. He still feels somewhat weak. He has some shortness of breath but this has been overall getting better. He is concerned about going home but also does not want to go to rehab. We discussed that he will need rehab if he continues to require a Horton catheter. He is in agreement. Vital signs reviewed General: Nontoxic, no distress, appears at stated age Cardiovascular: S1S2 reg, no murmur Lungs: Coarse breath sounds bilateral, no rhonchi, no rales, no accessory muscle use Abdominal: Soft, nontender to palpation, no guarding, pain to palpation over the left groin with bulbous protrusion Ext: No gross muscle atrophy, no edema b/l lower extremities, no contractures Neuro: CN II-XI grossly intact, no focal neuro deficits Psych: Alert, oriented, appropriate affect Assessment/Plan: Acute systolic CHF with EF 35-40% Acute hypoxic respiratory failure Elevated troponin, type II non-STEMI secondary to acute exacerbation of CHF Dyslipidemia -Cardiology note reviewed: Lasix IV x 1 today. - lasix 40 mg oral BID -Aspirin 81 mg daily, Lipitor 20 mg daily -Farxiga 10 mg daily - Metoprolol 25 mg twice daily - losartan 12.5 mg BID - orthostatics negative today per nursing Urinary retention with prostamegaly Left inguinal hernia, no bowel loops contained -Horton was inserted on 06/19/2023 with return of 1050 cc of urine. Discontinued on 06/21/22. - 06/22: We have been following postvoid residuals. He did have a postvoid residual of 600 but then was able to urinate another 300. Will continue to monitor postvoid residuals. -Flomax 0.4 mg daily -Urology note reviewed patient could not have a voiding trial prior to discharge and should have outpatient follow-up and Proscar initiated. Acute Exacerbation of Asthma -Continue with DuoNebs 4 times daily scheduled and 4 times daily as needed, Prednisone 40 mg daily, Mucinex 1200 mg p.o. twice daily, completed Doxy X 5 days Enterococcus UTI - Unasyn 3 gram IVPB TID D # 5/5 of appropriate ABX-- will d/c anitbiotics - Blood cultures negative to date Iron Deficiency Anemia Patel's Esophagus -Patient has a history of Patel's esophagus with last EGD completed 4 years ago. He does need to have a repeat one completed in the outpatient setting as he was supposed to have this done 2 to 3 years after his last procedure -He received 3 doses of IV iron -Continue with Protonix 40 mg IV push twice daily with plan to convert to oral on discharge. Imaging: None new Data Review: Labs reviewed from today include CBC and basic metabolic profile which are remarkable for hemoglobin of 10.2 and platelets of 107. Case discussed with social insurance analyst. He did agree to rehab and authorization sent today. DVT prophylaxis: SCDs Anticipated discharge date: 24-[address]: [facility] This dictation was prepared using [employer] voice recognition software. Though every attempt is made to correct errors during dictation some may still exist. Objective - Vital Signs Vital signs: Vital Signs Temp 97.8 F 06/22/23 12:00 Pulse 67 06/22/23 12:15 Resp 16 06/22/23 12:00 BP 132/62 06/22/23 12:15 Pulse Ox 95 06/22/23 12:00 FiO2 Intake & Output 06/21/23 06/22/23 06/22/23 18:59 06:59 18:59 Intake Total 476 10 118 Output Total 325 400 500 Balance 151 -390 -382 Weight 75.8 kg 75.8 kg Intake: IV 10 Invasive Line 3 10 Oral 476 118 Output: Urine 325 400 Post Void Residual 500 Other: Voiding Method Indwelling Catheter Indwelling Catheter Indwelling Catheter # Voids 1 - Labs CBC & Chem 7: 06/22/23 08:03 06/22/23 08:03 Labs: Abnormal Lab Results - Last 24 Hours (Table) 06/21/23 06/21/23 06/22/23 Range/Units 16:38 20:03 08:03 Hgb 10.2 L (13.0-17.5) gm/dL Hct 37.3 L (39.0-53.0) % MCV 71.1 L (80.0-100.0) fL MCH 19.4 L (25.0-35.0) pg MCHC 27.3 L (31.0-37.0) g/dL RDW 20.7 H (11.5-15.5) % Plt Count 107 L (150-450) k/uL Chloride (98-107) mmol/L BUN (9-20) mg/dL Glucose (74-99) mg/dL POC Glucose (mg/dL) 207 H 198 H (70-110) mg/dL Calcium (8.4-10.2) mg/dL 06/22/23 Range/Units 08:03 Hgb (13.0-17.5) gm/dL Hct (39.0-53.0) % MCV (80.0-100.0) fL MCH (25.0-35.0) pg MCHC (31.0-37.0) g/dL RDW (11.5-15.5) % Plt Count (150-450) k/uL Chloride 110 H (98-107) mmol/L BUN 40 H (9-20) mg/dL Glucose 130 H (74-99) mg/dL POC Glucose (mg/dL) (70-110) mg/dL Calcium 8.2 L (8.4-10.2) mg/dL Microbiology - Last 24 Hours (Table) 06/16/23 22:55 Blood Culture - Final Blood 06/16/23 22:40 Blood Culture - Final Blood
[2023-06-22 17:15] LABS: Glucose,Whole Blood 158 mg/dL (70-110)
[2023-06-22] MEDS: TAMSULOSIN 0.4 MG CAP.ER.24H PO SCH (17:29)
[2023-06-22 20:10] LABS: Glucose,Whole Blood 208 mg/dL (70-110)
[2023-06-23] MEDS: AMPICILLIN-SULBACTAM 3 GM in SODIUM CHLORIDE 0.9% 100 ML IVPB SCH ×3 (05:32→20:32)
[2023-06-23 06:07] LABS: Glucose,Whole Blood 93 mg/dL (70-110)
[2023-06-23] MEDS: INSULIN ASPART (NovoLOG) 100 UNIT/ML VIAL SQ SCH ×4 (06:09→20:34)
[2023-06-23] MEDS: IPRATROPIUM-ALBUTEROL 3 ML NEB INHALATION SCH ×4 (07:28→21:06)
[2023-06-23] MEDS: METOPROLOL TARTRATE 25 MG TAB PO SCH ×2 (08:54→20:34)
[2023-06-23] MEDS: ASPIRIN 81 MG PO SCH (08:54)
[2023-06-23] MEDS: PANTOPRAZOLE 40 MG/10 ML VIAL IVP SCH ×2 (08:54→20:33)
[2023-06-23] MEDS: FUROSEMIDE 40 MG TAB PO SCH ×2 (08:54→16:27)
[2023-06-23] MEDS: predniSONE 20 MG TAB PO SCH (08:54)
[2023-06-23] MEDS: guaiFENesin 600 MG TABLET.ER PO SCH ×2 (08:54→20:35)
[2023-06-23] MEDS: FINASTERIDE 5 MG TAB PO SCH (08:55)
[2023-06-23] MEDS: DAPAGLIFLOZIN PROPANEDIOL 10 MG TABLET PO SCH (08:55)
[2023-06-23] MEDS: ATORVASTATIN 20 MG TAB PO SCH (08:55)
[2023-06-23] MEDS: LOSARTAN 25 MG TAB PO SCH ×2 (08:55→20:34)
[2023-06-23] MEDS: FERROUS SULFATE 325 MG TAB PO SCH (08:55)
[2023-06-23] MEDS: SODIUM FERRIC GLUCONAT-SUCROSE 125 MG in SODIUM CHLORIDE 0.9% 100 ML IVPB SCH (08:56)
[2023-06-23] MEDS: CHOLECALCIFEROL 25 MCG (1000 IU) TABLET PO SCH (08:56)
[2023-06-23 11:04] LABS: African American GFR (CKD) 71 (>60 ml/min/1.73 sqM); Anion Gap 2 mmol/L; Blood Urea Nitrogen 35 mg/dL (9-20); Calcium 7.7 mg/dL (8.4-10.2); Carbon Dioxide 33 mmol/L (22-30); Chloride 105 mmol/L (98-107); Glucose 92 mg/dL (74-99); Magnesium 2.1 mg/dL (1.6-2.3); Non-African American GFR(CKD) 62 (>60 ml/min/1.73 sqM); Potassium 3.4 mmol/L (3.5-5.1); Sodium 140 mmol/L (137-145)
[2023-06-23 11:49] LABS: Glucose,Whole Blood 115 mg/dL (70-110)
[2023-06-23 14:25] LABS: Anisocytosis Moderate; HCT 34.8 % (39.0-53.0); HGB 9.7 gm/dL (13.0-17.5); Hypochromasia Marked; MCH 19.7 pg (25.0-35.0); MCV 70.4 fL (80.0-100.0); Mean Platelet Volume 7.9; Microcytosis Marked; Platelet Count 109 k/uL (150-450); Poikilocytosis Slight; RBC 4.95 m/uL (4.30-5.90); RDW 21.9 % (11.5-15.5); WBC 8.9 k/uL (3.8-10.6)
[2023-06-23] MEDS ORDERED: POTASSIUM CHLORIDE ER 20 MEQ TAB.ER PO STA (14:26)
--- NOTE | 2023-06-23 14:28 | P.PN ---
Subjective Progress Note Date: 06/23/23 Patient is an 88-year-old male with GERD, Patel's esophagus, asthma, dyslipidemia, and iron deficiency anemia who presents to the emergency department with shortness of breath. In the ER he underwent extensive evaluation. Initial vital signs were remarkable for blood pressure 168/96 and O2 sat 99% on 4 L nasal cannula. Initial laboratory analysis was remarkable for hemoglobin 8.3 (last known hemoglobin 12.1 11/15/2022), platelets 139, D-dimer 1.68, sodium 147, chloride 118, BUN 43, troponin 0.067, and BNP 10,700. Urinalysis was consistent with possible urinary tract infection and white blood cells greater than 182 with large leukocyte esterase. Influenza A/B/RSV/COVID- 19 testing was negative. Initial chest x-ray demonstrated mild cardiomegaly with pulmonary vascular congestion and possible pleural effusions. This was followed up by a CTA of the chest which demonstrated small right and minimal left pleural effusions with no persistent filling defects to suggest acute pulmonary embolism. Initial EKG demonstrated sinus rhythm with possible PVCs, right bundle branch block. Patient was admitted for acute exacerbation of asthma and acute exacerbation of congestive heart failure. He was started on Lasix. Echocardiogram was ordered and cardiology was consulted. Echocardiogram revealed ejection fraction 35 to 40%, moderate aortic insufficiency, moderate tricuspid regurgitation. Patient was continued on diuresis. He had worsening of his renal function. Bladder scan was performed which showed 1000 cc. Horton catheter was placed. Patient was started on Flomax and urology was consulted. Still having urinary retention. Patient Seen and examined at bedside. Horton was taken out. Continue to have urinary retention, Horton placed back in. Vital signs reviewed General: Nontoxic, no distress, appears at stated age Cardiovascular: S1S2 reg, no murmur Lungs: Coarse breath sounds bilateral, no rhonchi, no rales, no accessory muscle use Abdominal: Soft, nontender to palpation, no guarding, pain to palpation over the left groin with bulbous protrusion Ext: No gross muscle atrophy, no edema b/l lower extremities, no contractures Neuro: CN II-XI grossly intact, no focal neuro deficits Psych: Alert, oriented, appropriate affect Assessment/Plan: Acute systolic CHF with EF 35-40% Acute hypoxic respiratory failure Elevated troponin, type II non-STEMI secondary to acute exacerbation of CHF Dyslipidemia -Cardiology following - lasix 40 mg oral BID -Aspirin 81 mg daily, Lipitor 20 mg daily -Farxiga 10 mg daily - Metoprolol 25 mg twice daily - losartan 12.5 mg BID Urinary retention with prostamegaly Left inguinal hernia, no bowel loops contained -Horton catheter was discontinued, patient still persistently retaining, Horton catheter placed back in -Flomax 0.4 mg daily -Urology was consulted, patient could not have a voiding trial prior to discharge and should have outpatient follow-up and Proscar initiated. Acute Exacerbation of Asthma -Continue with DuoNebs 4 times daily scheduled and 4 times daily as needed, Prednisone 40 mg daily, Mucinex 1200 mg p.o. twice daily, completed Doxy X 5 days Enterococcus UTI -Completed Unasyn 3 gram IVPB TID D # 5/ of appropriate ABX - Blood cultures negative to date Iron Deficiency Anemia Patel's Esophagus -Patient has a history of Patel's esophagus with last EGD completed 4 years ago. He does need to have a repeat one completed in the outpatient setting as he was supposed to have this done 2 to 3 years after his last procedure -He received IV iron -Continue with Protonix 40 mg IV push twice daily with plan to convert to oral on discharge. Imaging: None new Data Review: Hemoglobin 9.7, platelet 109, potassium 3.4, magnesium 2.1, creatinine 1.07, blood sugars range between 93-2 08 Case discussed with social worker psychiatric. Pending Auth DVT prophylaxis: SCDs Anticipated discharge date: 24-[address]: [facility] Objective - Vital Signs Vital signs: Vital Signs Temp 97.9 F 06/23/23 12:09 Pulse 69 06/23/23 12:09 Resp 21 06/23/23 12:09 BP 136/64 06/23/23 12:09 Pulse Ox 93 L 06/23/23 12:09 FiO2 Intake & Output 06/22/23 06/23/23 06/23/23 18:59 06:59 18:59 Intake Total 476 240 598 Output Total 3000 1750 1427 Balance -5755 -3128 -5381 Weight 75.8 kg 73.7 kg Intake: Oral 476 240 598 Output: Urine 2500 1750 1975 Male - External 975 Post Void Residual 500 724 Other: Voiding Method Indwelling Catheter External Catheter External Catheter - Labs CBC & Chem 7: 06/23/23 09:49 06/23/23 09:49 Labs: Abnormal Lab Results - Last 24 Hours (Table) 06/22/23 06/22/23 06/23/23 Range/Units 17:13 20:09 09:49 Hgb 9.7 L (13.0-17.5) gm/dL Hct 34.8 L (39.0-53.0) % MCV 70.4 L (80.0-100.0) fL MCH 19.7 L (25.0-35.0) pg MCHC 28.0 L (31.0-37.0) g/dL RDW 21.9 H (11.5-15.5) % Plt Count 109 L (150-450) k/uL Potassium (3.5-5.1) mmol/L Carbon Dioxide (22-30) mmol/L BUN (9-20) mg/dL POC Glucose (mg/dL) 158 H 208 H (70-110) mg/dL Calcium (8.4-10.2) mg/dL 06/23/23 06/23/23 Range/Units 09:49 11:48 Hgb (13.0-17.5) gm/dL Hct (39.0-53.0) % MCV (80.0-100.0) fL MCH (25.0-35.0) pg MCHC (31.0-37.0) g/dL RDW (11.5-15.5) % Plt Count (150-450) k/uL Potassium 3.4 L (3.5-5.1) mmol/L Carbon Dioxide 33 H (22-30) mmol/L BUN 35 H (9-20) mg/dL POC Glucose (mg/dL) 115 H (70-110) mg/dL Calcium 7.7 L (8.4-10.2) mg/dL
[2023-06-23 16:41] LABS: Glucose,Whole Blood 189 mg/dL (70-110)
[2023-06-23] MEDS: TAMSULOSIN 0.4 MG CAP.ER.24H PO SCH (17:36)
[2023-06-23 20:15] LABS: Glucose,Whole Blood 205 mg/dL (70-110)
--- NOTE | 2023-06-23 20:16 | P.PN ---
Subjective Progress Note Date: 06/23/23 HISTORY OF PRESENT ILLNESS: This is a 88-year-old male with a past medical history significant for card iomyopathy with an ejection fraction of 45%, moderate aortic regurgitation, hyperlipidemia, orthostatic hypotension, and COPD. Patient follows in the office with Dr. Amaya. We have been asked to see the patient in consultation for congestive heart failure. Patient examined at the bedside. Patient was somewhat lethargic at the time of examination. Patient presented to the hospital with a chief complaint of shortness of breath. He states he has been feeling short of breath over the past few months but has gotten worse over the past few days. He denies any chest pain or pressure. He denies any history of congestive heart failure. He does report lower extremity edema which he states he usually does not have. The patient was found to be in acute CHF and was started on IV Lasix. He does report his breathing has improved since coming to the hospital. He is currently on supplemental oxygen with oxygen saturations greater than 92%. Blood pressure 141/65. DIAGNOSTICS: - EKG reveals sinus mechanism with no signs of acute ischemia. Right bundle branch block - Chest xray mild cardiomegaly and pulmonary vascular congestion. Small to moderate left and small right pleural effusions with adjacent atelectasis and/or consolidation - Laboratory data: WBC 7.4. Hemoglobin 8.3. Platelet count 139. D-dimer 1.68. Sodium 147. BUN 43. Creatinine 0.95. Troponin 0.067. 0.063. 0.074. proBNP 10,700. - Current home cardiac medications include midodrine 5 mg 3 times a day, simvastatin 20 mg daily, and aspirin 81 mg daily - Most recent echocardiogram obtained in October 2022 revealed ejection fraction 45 to 50%, moderate concentric LVH, moderate aortic regurgitation, mild mitral veg etation, and trace to mild tricuspid regurgitation -Patient underwent Lexiscan stress test in February 2022 revealing small fixed inferior defect consistent with diaphragmatic attenuation artifact. No reversible ischemia noted. EF estimated at 60% June 18, 2023 Patient examined this morning at the bedside. Patient currently denies chest pain or pressure. He continues to report shortness of breath and states it does not feel much improved from yesterday. He remains on IV Lasix 40 mg every 12 hours. Creatinine today is up to 1.46. Echocardiogram completed revealing ejection fraction 35 to 40%, mild to moderate mitral regurgitation, moderate aortic insufficiency, and moderate tricuspid regurgitation. Patient's blood pressures have remained stable with a systolic in the 140s. June 19, 2023 Patient examined this morning at bedside. Patient currently denies chest pain or pressure. He denies shortness of breath. He does report a productive cough this morning. Patient's diuretics were discontinued yesterday as he developed CASIMIRO with a creatinine of 1.46. Blood pressure 126/58. 06/20 Patient denies having any chest pain. He states he is eating okay. He walked in the hallway yesterday and he had episode of dizziness. Blood pressure 136/60, heart rate 80, pulse ox 94% on 3 L. He still has a little lower extremity edema. 06/21 Patient states that his breathing is about the same. He was able to walk in the hallway without any difficulty or dizziness today. Orthostatics will be done today. Blood pressure 114/62, heart rate in the 60s to 80s. Repeat blood work reveals hemoglobin of 8.8, potassium 3.9, BUN 43 creatinine 1.25. 06/22 Patient denies having any chest pain. He still has edema not back to his baseline. Patient had has been transition to oral Lasix 40 mg twice daily. He has a negative fluid balance yesterday of 2400. It appears he has had a weight loss of 1-1/2 kg since admission. Will plan on 1 dose of IV today. Blood pressure 149/65, heart rate is in the 70s. Repeat blood work reveals hemoglobin 10.2, potassium 4.1, BUN 40 creatinine 1.12. 06/23 He reports feeling tired. He is getting iron infusions and hgb is improving. No chest pain. PHYSICAL EXAM: VITAL SIGNS: Reviewed. GENERAL: Well-developed in no acute distress. HEENT: Head is normocephalic. Pupils are equal, round. Sclerae anicteric. Mucous membranes of the mouth are moist. Neck supple. LUNGS: Respirations even and unlabored. Lungs with rhonchi throughout. HEART: Regular rate and rhythm. S1 and S2 heard. Diastolic murmur noted ABDOMEN: Soft. Nondistended. Nontender. EXTREMITIES: Show No clubbing or cyanosis. Peripheral pulses intact. Trace bilateral lower extremity edema NEUROLOGIC: Awake and alert. Oriented x 3. ASSESSMENT: Shortness of breath Acute heart failure with reduced EF, 35 to 40% Elevated troponins, flat, likely secondary to above, no evidence of acute coronary syndrome Acute anemia, hemoglobin 8.3, previously 12.1 Acute kidney injury Valvular heart disease including moderate aortic regurgitation Hyperlipidemia History of orthostatic hypotension, maintained on midodrine outpatient History of COPD Nonsustained ventricular tachycardia PLAN: He has remained stable. He has previously been unable to tolerate cardiomyopathy regimen. However patient's blood pressures have been stable since admission. We have added metoprolol and off lisinopril. He is tolerating current regimen. May benefit from rehab. Cardiology to sign off, please call with any questions. Follow up in 1 week. Nurse practitioner note has been reviewed by physician. Signing provider agrees with the documented findings, assessment, and plan of care documented by SENIOR [employer]YRO[employer] SPECIALIST as a scribe. Objective - Vital Signs Vital signs: Vital Signs Temp 97.4 F L 06/23/23 16:31 Pulse 71 06/23/23 16:31 Resp 20 06/23/23 16:31 BP 128/61 06/23/23 16:31 Pulse Ox 94 L 06/23/23 16:31 FiO2 Intake & Output 06/23/23 06/23/23 06/24/23 06:59 18:59 06:59 Intake Total 240 716 Output Total 1750 4999 340 Balance -1510 -4283 -340 Weight 73.7 kg Intake: Oral 240 716 Output: Urine 1750 4275 340 Male - External 1575 Post Void Residual 724 Other: Voiding Method External Catheter External Catheter - Labs CBC & Chem 7: 06/23/23 09:49 06/23/23 09:49 Labs: Abnormal Lab Results - Last 24 Hours (Table) 06/22/23 06/23/23 06/23/23 Range/Units 20:09 09:49 09:49 Hgb 9.7 L (13.0-17.5) gm/dL Hct 34.8 L (39.0-53.0) % MCV 70.4 L (80.0-100.0) fL MCH 19.7 L (25.0-35.0) pg MCHC 28.0 L (31.0-37.0) g/dL RDW 21.9 H (11.5-15.5) % Plt Count 109 L (150-450) k/uL Potassium 3.4 L (3.5-5.1) mmol/L Carbon Dioxide 33 H (22-30) mmol/L BUN 35 H (9-20) mg/dL POC Glucose (mg/dL) 208 H (70-110) mg/dL Calcium 7.7 L (8.4-10.2) mg/dL 06/23/23 06/23/23 Range/Units 11:48 16:39 Hgb (13.0-17.5) gm/dL Hct (39.0-53.0) % MCV (80.0-100.0) fL MCH (25.0-35.0) pg MCHC (31.0-37.0) g/dL RDW (11.5-15.5) % Plt Count (150-450) k/uL Potassium (3.5-5.1) mmol/L Carbon Dioxide (22-30) mmol/L BUN (9-20) mg/dL POC Glucose (mg/dL) 115 H 189 H (70-110) mg/dL Calcium (8.4-10.2) mg/dL
[2023-06-24] MEDS: AMPICILLIN-SULBACTAM 3 GM in SODIUM CHLORIDE 0.9% 100 ML IVPB SCH ×2 (04:46→11:29)
[2023-06-24 06:10] LABS: Glucose,Whole Blood 109 mg/dL (70-110)
[2023-06-24] MEDS: INSULIN ASPART (NovoLOG) 100 UNIT/ML VIAL SQ SCH ×3 (06:11→17:01)
[2023-06-24] MEDS: IPRATROPIUM-ALBUTEROL 3 ML NEB INHALATION SCH ×3 (08:18→15:34)
[2023-06-24] MEDS: ASPIRIN 81 MG PO SCH (08:50)
[2023-06-24] MEDS: ATORVASTATIN 20 MG TAB PO SCH (08:50)
[2023-06-24] MEDS: guaiFENesin 600 MG TABLET.ER PO SCH (08:50)
[2023-06-24] MEDS: predniSONE 20 MG TAB PO SCH (08:50)
[2023-06-24] MEDS: PANTOPRAZOLE 40 MG/10 ML VIAL IVP SCH (08:50)
[2023-06-24] MEDS: LOSARTAN 25 MG TAB PO SCH (08:51)
[2023-06-24] MEDS: METOPROLOL TARTRATE 25 MG TAB PO SCH (08:51)
[2023-06-24] MEDS: DAPAGLIFLOZIN PROPANEDIOL 10 MG TABLET PO SCH (08:51)
[2023-06-24] MEDS: FUROSEMIDE 40 MG TAB PO SCH ×2 (08:51→17:01)
[2023-06-24] MEDS: CHOLECALCIFEROL 25 MCG (1000 IU) TABLET PO SCH (08:51)
[2023-06-24] MEDS: FINASTERIDE 5 MG TAB PO SCH (08:51)
[2023-06-24 10:09] LABS: African American GFR (CKD) 64 (>60 ml/min/1.73 sqM); Anion Gap 2 mmol/L; Blood Urea Nitrogen 33 mg/dL (9-20); Carbon Dioxide 36 mmol/L (22-30); Chloride 104 mmol/L (98-107); Glucose 105 mg/dL (74-99); Magnesium 2.4 mg/dL (1.6-2.3); Non-African American GFR(CKD) 55 (>60 ml/min/1.73 sqM); Sodium 142 mmol/L (137-145)
[2023-06-24 10:42] VITALS: RESP 14
[2023-06-24 11:23] LABS: Glucose,Whole Blood 112 mg/dL (70-110)
[2023-06-24 11:42] VITALS: BP 118/64; TEMP 97.9
--- NOTE | 2023-06-24 14:14 | P.PN ---
Subjective Progress Note Date: 06/24/23 Patient is an 88-year-old male with GERD, Patel's esophagus, asthma, dyslipidemia, and iron deficiency anemia who presents to the emergency department with shortness of breath. In the ER he underwent extensive evaluation. Initial vital signs were remarkable for blood pressure 168/96 and O2 sat 99% on 4 L nasal cannula. Initial laboratory analysis was remarkable for hemoglobin 8.3 (last known hemoglobin 12.1 11/15/2022), platelets 139, D-dimer 1.68, sodium 147, chloride 118, BUN 43, troponin 0.067, and BNP 10,700. Urinalysis was consistent with possible urinary tract infection and white blood cells greater than 182 with large leukocyte esterase. Influenza A/B/RSV/COVID- 19 testing was negative. Initial chest x-ray demonstrated mild cardiomegaly with pulmonary vascular congestion and possible pleural effusions. This was followed up by a CTA of the chest which demonstrated small right and minimal left pleural effusions with no persistent filling defects to suggest acute pulmonary embolism. Initial EKG demonstrated sinus rhythm with possible PVCs, right bundle branch block. Patient was admitted for acute exacerbation of asthma and acute exacerbation of congestive heart failure. He was started on Lasix. Echocardiogram was ordered and cardiology was consulted. Echocardiogram revealed ejection fraction 35 to 40%, moderate aortic insufficiency, moderate tricuspid regurgitation. Patient was continued on diuresis. He had worsening of his renal function. Bladder scan was performed which showed 1000 cc. Horton catheter was placed. Patient was started on Flomax and urology was consulted. Still having urinary retention. Patient Seen and examined at bedside. No acute events overnight. Denies any new complaints. Horton catheter in place. Vital signs reviewed General: Nontoxic, no distress, appears at stated age Cardiovascular: S1S2 reg, no murmur Lungs: Coarse breath sounds bilateral, no rhonchi, no rales, no accessory muscle use Abdominal: Soft, nontender to palpation, no guarding, pain to palpation over the left groin with bulbous protrusion Ext: No gross muscle atrophy, no edema b/l lower extremities, no contractures Neuro: CN II-XI grossly intact, no focal neuro deficits Psych: Alert, oriented, appropriate affect Assessment/Plan: Acute systolic CHF with EF 35-40%, resolving Acute hypoxic respiratory failure, resolving Elevated troponin, type II non-STEMI secondary to acute exacerbation of CHF Dyslipidemia -Cardiology following - lasix 40 mg oral BID -Aspirin 81 mg daily, Lipitor 20 mg daily -Farxiga 10 mg daily - Metoprolol 25 mg twice daily - losartan 12.5 mg BID Urinary retention with prostamegaly Left inguinal hernia, no bowel loops contained -Horton catheter in place. Patient failed voiding trial. -Flomax 0.4 mg daily -Urology was consulted, patient could not have a voiding trial prior to discharge and should have outpatient follow-up and Proscar initiated. Acute Exacerbation of Asthma -Continue with DuoNebs 4 times daily scheduled and 4 times daily as needed, Mucinex 1200 mg p.o. twice daily, completed Doxy X 5 days and oral prednisone Enterococcus UTI -Completed Unasyn 3 gram IVPB TID D # 5/ of appropriate ABX - Blood cultures negative to date Iron Deficiency Anemia Patel's Esophagus -Patient has a history of Patel's esophagus with last EGD completed 4 years ago. He does need to have a repeat one completed in the outpatient setting as he was supposed to have this done 2 to 3 years after his last procedure -He received IV iron -Continue with Protonix 40 mg IV push twice daily with plan to convert to oral on discharge. Hypokalemia, resolved Imaging: None new Data Review: Potassium 4, magnesium 2.4, creatinine 1.17, blood sugars range between 10 5-2 05. Case discussed with adoption social worker. Pending Auth DVT prophylaxis: SCDs Anticipated discharge date: Pending bed availability Anticipated discharge place: [facility] Objective - Vital Signs Vital signs: Vital Signs Temp 97.9 F 06/24/23 11:17 Pulse 67 06/24/23 14:00 Resp 14 06/24/23 14:00 BP 118/64 06/24/23 11:17 Pulse Ox 100 06/24/23 11:17 FiO2 Intake & Output 06/23/23 06/24/23 06/24/23 18:59 06:59 18:59 Intake Total 716 1618 Output Total 7241 0360 800 Balance -8333 -5870 818 Weight 69 kg Intake: Oral 716 1618 Output: Urine 6924 2740 800 Male - External 1575 600 Post Void Residual 724 Other: Voiding Method External Catheter Indwelling Catheter Indwelling Catheter - Labs CBC & Chem 7: 06/23/23 09:49 06/24/23 09:31 Labs: Abnormal Lab Results - Last 24 Hours (Table) 06/23/23 06/23/23 06/23/23 Range/Units 09:49 16:39 20:11 Hgb 9.7 L (13.0-17.5) gm/dL Hct 34.8 L (39.0-53.0) % MCV 70.4 L (80.0-100.0) fL MCH 19.7 L (25.0-35.0) pg MCHC 28.0 L (31.0-37.0) g/dL RDW 21.9 H (11.5-15.5) % Plt Count 109 L (150-450) k/uL Carbon Dioxide (22-30) mmol/L BUN (9-20) mg/dL Glucose (74-99) mg/dL POC Glucose (mg/dL) 189 H 205 H (70-110) mg/dL Calcium (8.4-10.2) mg/dL Magnesium (1.6-2.3) mg/dL 06/24/23 06/24/23 Range/Units 09:31 11:21 Hgb (13.0-17.5) gm/dL Hct (39.0-53.0) % MCV (80.0-100.0) fL MCH (25.0-35.0) pg MCHC (31.0-37.0) g/dL RDW (11.5-15.5) % Plt Count (150-450) k/uL Carbon Dioxide 36 H (22-30) mmol/L BUN 33 H (9-20) mg/dL Glucose 105 H (74-99) mg/dL POC Glucose (mg/dL) 112 H (70-110) mg/dL Calcium 8.0 L (8.4-10.2) mg/dL Magnesium 2.4 H (1.6-2.3) mg/dL
--- NOTE | 2023-06-24 16:02 | P.DS ---
Providers Date of admission: 06/16/23 16:59 Expected date of discharge: 06/24/23 Attending physician: Ed Armstrong MD Consults: 06/19/23 10:12 Consult Physician Routine Consulting Provider: Tulio Zamora Consult Reason/Comments: urinary retention, prostomegally Do you want consulting provider notified?: Yes Primary care physician: Jimmy Ruiz MD Hospital Course: Discharge Diagnosis: Acute systolic CHF with EF 35-40% Acute hypoxic respiratory failure Elevated troponin, type II non-STEMI secondary to acute exacerbation of CHF Dyslipidemia Urinary retention with prostamegaly Left inguinal hernia Acute Exacerbation of Asthma Enterococcus UTI Iron Deficiency Anemia Patel's Esophagus Hypokalemia Hospital Course: Patient is an 88-year-old male with GERD, Patel's esophagus, asthma, dyslipidemia, and iron deficiency anemia who presents to the emergency department with shortness of breath. In the ER he underwent extensive evaluation. Initial vital signs were remarkable for blood pressure 168/96 and O2 sat 99% on 4 L nasal cannula. Initial laboratory analysis was remarkable for hemoglobin 8.3 (last known hemoglobin 12.1 11/15/2022), platelets 139, D-dimer 1.68, sodium 147, chloride 118, BUN 43, troponin 0.067, and BNP 10,700. Urinalysis was consistent with possible urinary tract infection and white blood cells greater than 182 with large leukocyte esterase. Influenza A/B/RSV/COVID- 19 testing was negative. Initial chest x-ray demonstrated mild cardiomegaly with pulmonary vascular congestion and possible pleural effusions. This was followed up by a CTA of the chest which demonstrated small right and minimal left pleural effusions with no persistent filling defects to suggest acute pulmonary embolism. Initial EKG demonstrated sinus rhythm with possible PVCs, right bundle branch block. Patient was admitted for acute exacerbation of asthma and acute exacerbation of congestive heart failure. He was started on Lasix, oral steroids, bronchodilators. Echocardiogram was ordered and cardiology was consulted. Echocardiogram revealed ejection fraction 35 to 40%, moderate aortic insufficiency, moderate tricuspid regurgitation. Patient was continued on diuresis. He had worsening of his renal function. Bladder scan was performed which showed 1000 cc. Horton catheter was placed. Patient was started on Flomax and urology was consulted. Still having urinary retention. Patient also completed course of IV antibiotics for Enterococcus UTI. For iron deficiency anemia, patient had IV iron. At the time of discharge. Patient is on oral diuretics, continues to have Horton catheter in place, needs outpatient urology follow-up. He is also on guideline directed medical therapy for heart failure Patient seen and examined at bedside. Vital signs reviewed and stable. General: Nontoxic, no distress, appears at stated age Cardiovascular: S1S2 reg, no murmur Lungs: Coarse breath sounds bilateral, no rhonchi, no rales, no accessory muscle use Abdominal: Soft, nontender to palpation, no guarding, pain to palpation over the left groin with bulbous protrusion Ext: No gross muscle atrophy, no edema b/l lower extremities, no contractures Neuro: CN II-XI grossly intact, no focal neuro deficits Psych: Alert, oriented, appropriate affect A total of 33 minutes of time were spent preparing this complex discharge summary. Patient was discharged on 05/24/2023 at 1602. Patient Condition at Discharge: Stable Plan - Discharge Summary Discharge Rx Participant: No New Discharge Prescriptions: New Losartan [Cozaar] 12.5 mg PO BID tab Tamsulosin [Flomax] 0.4 mg PO PC-SUPPER #0 cap Furosemide [Lasix] 40 mg PO BID@0900,1600 tab Metoprolol Tartrate [Lopressor] 25 mg PO BID tab Finasteride [Proscar] 5 mg PO DAILY tab Dapagliflozin Propanediol [Farxiga] 10 mg PO DAILY tab Continue Aspirin EC [Ecotrin Low Dose] 81 mg PO DAILY Simvastatin [Zocor] 20 mg PO DAILY Albuterol Nebulized [Ventolin Nebulized] 2.5 mg INHALATION RT-Q6H PRN PRN Reason: Shortness Of Breath Loperamide [Imodium] 2 - 4 mg PO QID PRN MDD 16 MG PRN Reason: Diarrhea Ferrous Sulfate [Iron (65 MG Elemental)] 325 mg PO Q48H Vit C/E/Zn/Coppr/Lutein/Zeaxan [Preservision Areds 2 Softgel] 1 cap PO BID Albuterol Inhaler [Ventolin Hfa Inhaler] 1 - 2 puff INHALATION RT-Q6H PRN PRN Reason: Shortness Of Breath Omeprazole 20 mg PO DAILY Cholecalciferol [Vitamin D3 (25 Mcg = 1000 Iu)] 25 mcg PO DAILY Fluticasone Furoate [Flonase Sensimist] 2 spray EA NOSTRIL DAILY PRN PRN Reason: Allergy Symptoms Discontinued Midodrine [ProAmatine] 5 mg PO TID Discharge Medication List Albuterol Nebulized [Ventolin Nebulized] 2.5 mg INHALATION RT-Q6H PRN 09/25/18 [History] Aspirin EC [Ecotrin Low Dose] 81 mg PO DAILY 09/25/18 [History] Simvastatin [Zocor] 20 mg PO DAILY 09/25/18 [History] Albuterol Inhaler [Ventolin Hfa Inhaler] 1 - 2 puff INHALATION RT-Q6H PRN 06/16/23 [History] Cholecalciferol [Vitamin D3 (25 Mcg = 1000 Iu)] 25 mcg PO DAILY 06/16/23 [History] Ferrous Sulfate [Iron (65 MG Elemental)] 325 mg PO Q48H 06/16/23 [History] Fluticasone Furoate [Flonase Sensimist] 2 spray EA NOSTRIL DAILY PRN 06/16/23 [History] Loperamide [Imodium] 2 - 4 mg PO QID PRN MDD 16 MG 06/16/23 [History] Omeprazole 20 mg PO DAILY 06/16/23 [History] Vit C/E/Zn/Coppr/Lutein/Zeaxan [Preservision Areds 2 Softgel] 1 cap PO BID 06/16/23 [History] Dapagliflozin Propanediol [Farxiga] 10 mg PO DAILY tab 06/24/23 [Rx] Finasteride [Proscar] 5 mg PO DAILY tab 06/24/23 [Rx] Furosemide [Lasix] 40 mg PO BID@0900,1600 tab 06/24/23 [Rx] Losartan [Cozaar] 12.5 mg PO BID tab 06/24/23 [Rx] Metoprolol Tartrate [Lopressor] 25 mg PO BID tab 06/24/23 [Rx] Tamsulosin [Flomax] 0.4 mg PO PC-SUPPER #0 cap 06/24/23 [Rx] Follow up Appointment(s)/Referral(s): Jimmy Ruiz MD [Primary Care Provider] - 1-2 days Kev Amaya DO [STAFF PHYSICIAN] - 1 Week Mathew Trevizo MD [STAFF PHYSICIAN] - 1 Week Patient Instructions/Handouts: Heart Failure (DC) Activity/Diet/Wound Care/Special Instructions: Please see Cardiology and urology. Discharge Disposition: TRANSFER TO SNF/ECF
[2023-06-24 16:04] VITALS: PULSE 72
[2023-06-24 16:07] LABS: Glucose,Whole Blood 190 mg/dL (70-110)
== END 2023-06-24 20:12 | DRG 280 ==
LOC: EC 14:17 → 3SCARD 16:59
PROVIDERS: ADMIT Internal Medicine; ATTEND Internal Medicine
DX: I11.0 Hypertensive heart disease with heart failure (principal); I21.A1 Myocardial infarction type 2; I50.23 Acute on chronic systolic (congestive) heart failure; J96.01 Acute respiratory failure with hypoxia; D62 Acute posthemorrhagic anemia; I47.20 Ventricular tachycardia, unspecified; J45.901 Unspecified asthma with (acute) exacerbation; N17.9 Acute kidney failure, unspecified; N39.0 Urinary tract infection, site not specified; F03.93 Unspecified dementia, unspecified severity, with mood disturbance; I42.9 Cardiomyopathy, unspecified; I08.3 Combined rheumatic disorders of mitral, aortic and tricuspid valves; D50.9 Iron deficiency anemia, unspecified; E89.0 Postprocedural hypothyroidism; I45.10 Unspecified right bundle-branch block; J44.89 Other specified chronic obstructive pulmonary disease; K21.9 Gastro-esophageal reflux disease without esophagitis; K40.90 Unilateral inguinal hernia, without obstruction or gangrene, not specified as recurrent; N21.0 Calculus in bladder; N32.0 Bladder-neck obstruction; B95.2 Enterococcus as the cause of diseases classified elsewhere; N40.1 Benign prostatic hyperplasia with lower urinary tract symptoms; R33.8 Other retention of urine; R39.16 Straining to void; R39.12 Poor urinary stream; I95.1 Orthostatic hypotension; E78.5 Hyperlipidemia, unspecified; E87.6 Hypokalemia; I25.2 Old myocardial infarction; H35.30 Unspecified macular degeneration; R19.5 Other fecal abnormalities; Z79.82 Long term (current) use of aspirin; Z79.899 Other long term (current) drug therapy; Z77.090 Contact with and (suspected) exposure to asbestos; Z85.46 Personal history of malignant neoplasm of prostate
CPT/HCPCS: 36415; 71046; 71275; 74176; 80048; 80053; 81001; 82272; 83036; 83540; 83550; 83605; 83735; 83880; 84100; 84484; 85025; 85027; 85379; 85610; 85730; 86850; 86900; 86901; 87040; 87077; 87086; 87186; 87636; 93005; 93306; 94640; 94760; 96365; 96375; 96376; 99285